=== PATIENT | male | born 1975 | race Caucasian/White ===

== ENCOUNTER 2017-10-24 09:14 | Inpatient (IN) ==
[2017-10-24] MEDS ORDERED: 0.9 % Sodium Chloride 1,000 ML IVC ONE ×3 (09:23→13:58)
[2017-10-24] MEDS ORDERED: Ondansetron 4 MG/2 ML VIAL IVP ONE (09:23)
[2017-10-24] MEDS ORDERED: *HR* HYDROmorphone (PF) 1 MG/ML SYRINGE IVP ONE ×2 (09:23→11:10)
[2017-10-24 09:54] LABS: Hematocrit 54.9 % (37.5-50.1); Hemoglobin 18.8 g/dL (12.9-16.9); Immature Granulocytes % 0.6 % (0-4); Mean Corpuscular HGB Conc 34.2 g/dL (31.6-35.5); Mean Corpuscular Volume 90.4 fL (83.0-100.0); Mean Platelet Volume 9.1 fL (9.4-12.4); Monocytes % 4.2 %; Platelet Count 429 K/mcL (140-400); Red Blood Count 6.07 M/mcL (4.19-5.50); Red Cell Distribution Width 11.9 % (11.5-14.5); Segmented Neutrophils % 85.6 %
[2017-10-24 09:55] LABS: Basophils # 0.1 K/mcL (0.0-0.2); Basophils % 0.3 %; Eosinophils # 0.1 K/mcL (0.0-0.6); Eosinophils % 0.3 %; Lymphocytes # 2.1 K/mcL (0.6-4.6); Neutrophils # 19.7 K/mcL (1.6-8.9); Nucleated Red Blood Cells 0.1 /100 WBC (0)
[2017-10-24 10:13] LABS: Ethanol < 10 mg/dL (0-10)
[2017-10-24 10:14] LABS: Alanine Aminotransferase 23 Units/L (7-52); Albumin 4.2 g/dL (3.5-5.7); Albumin/Globulin Ratio 1.8 (1.1-2.2); Alkaline Phosphatase 78 Units/L (34-104); Amylase 56 Units/L (29-103); Aspartate Amino Transferase 16 Units/L (13-39); BUN/Creatinine Ratio 16 (6-26); Bilirubin,Direct 0.1 mg/dL (0.0-0.2); Bilirubin,Indirect 0.7 mg/dL (0.0-1.2); Bilirubin,Total 0.8 mg/dL (0.3-1.0); Blood Urea Nitrogen 15 mg/dL (6-20); Calcium 9.5 mg/dL (8.6-10.3); Carbon Dioxide 26 mEq/L (23-29); Chloride 102 mEq/L (98-107); Globulin 2.4 g/dL (2.4-3.5); Glucose 178 mg/dL (70-105); Lipase 38 Units/L (11-82); Osmolality,Calculated 291 (280-300); Potassium 4.3 mEq/L (3.5-5.1); Sodium 138 mEq/L (136-145); Total Protein 6.6 g/dL (6.4-8.9); eGFR For African Americans > 60 (> 60); eGFR For Non-African Americans > 60 (> 60)
[2017-10-24 11:04] LABS: Bilirubin,Urine Small (Negative); Blood,Urine Negative (Negative); Clarity,Urine Cloudy (Clear); Color,Urine Dark Yellow (Yellow); Glucose,Urine (UA) Normal (Normal); Ketones,Urine 15 mg/dL (Negative); Leukocyte Esterase,Urine Negative (Negative); Nitrite,Urine Negative (Negative); Protein,Urine 30 mg/dL (Neg-Trace); Specific Gravity,Urine > 1.030 (1.010-1.025); Urobilinogen,Urine Normal (Normal)
[2017-10-24 11:06] LABS: Bacteria,Urine None Seen per hpf (None-Few); RBC,Urine 0-3 per hpf (0-3); Squamous Epithelial Cell,Urine Many per lpf (None-Few); WBC,Urine 0-3 per hpf (0-3)
--- NOTE | 2017-10-24 11:07 | Emergency Department Note ---
Disposition Clinical Impression: Diverticulitis of colon with perforation Qualifiers: Diverticulitis bleeding: without bleeding Qualified Code(s): K57.20 - Diverticulitis of large intestine with perforation and abscess without bleeding Disposition: Admitted As Inpatient Condition: Good Abdominal Pain HPI - General Chief Complaint: ED Abdominal Pain Stated Complaint: ABD Pain Time Seen by Provider: 10/24/17 09:18 Source: patient Mode of arrival: wheelchair Limitations: no limitations Nursing Notes Reviewed: Yes Vital Signs Reviewed: Yes - History of Present Illness HPI Narrative: Patient presents to the ED the chief complaint of abdominal pain. Pain started suprapubically 2-3 days ago. States he felt like he had stomach. Had a few episodes of diarrhea, then. He had a few episodes of vomiting but none today. States the pain has continued to get worse and is now constant and has moved all over his abdomen. He has had subjective fever and chills but none documented. No chest pain or shortness of breath. No previous abdominal surgeries. No testicular pain or hematuria or discharge. He has had some painful bowel movements as well as difficulty urinating Pain Scale: 10 - Related Data Home Medications Medication Instructions Recorded Confirmed No Known Home Drugs 10/24/17 10/24/17 Allergies Allergy/AdvReac Type Severity Reaction Status Date / Time No Known Allergies Allergy Verified 10/24/17 09:31 All systems ED: reviewed and negative except as stated. Constitutional: Reports: fever, chills Cardiovascular: Denies: chest pain Gastrointestinal: Reports: abdominal pain Genitourinary: Reports: as per HPI Abdominal Pain PMH - Past Medical History Medical history: Reports: no medical history Male Surgical History: Reports: no surgical history Psychiatric history: Reports: no psych history - Social History Smoking status: Current every day smoker Alcohol use: Reports: heavy Drug use: Reports: none Physical Exam - General Limitations: no limitations General appearance: alert, in distress (in pain ) - Head Head exam: atraumatic, normocephalic, normal inspection - Eye Eye exam: Present: normal appearance, PERRL, EOMI - ENT ENT exam: mucous membranes dry - Chest Chest inspection: Present: normal inspection, symmetric chest wall rise - Respiratory Respiratory exam: Present: normal lung sounds bilaterally - Cardiovascular Cardiovascular exam: Present: regular rate, normal rhythm, normal heart sounds - Abdominal Exam Abdominal exam: Present: soft, tenderness, distention, guarding. Absent: normal bowel sounds Abdominal tenderness: Present: suprapubic, diffuse, moderate, severe - Extremities Exam Extremities exam: Present: normal inspection, full ROM. Absent: tenderness, pedal edema - Back Exam Back exam: Present: normal inspection, full ROM. Absent: tenderness - Neurological Exam Neurological exam: Present: alert, oriented X3 - Psychiatric Psychiatric exam: Present: normal affect, normal mood - Skin Skin exam: Present: warm, dry, intact, normal color Course Course Narrative: patient presenting with abd pain x3 days, worse now. patient guarding, concern over surgical abd appy vs diverticulitis. will get CT, labs and dispo pending. - Reevaluation(s) Reevaluation #1: [place] royce called. patient has perforated diverticulitis with free air under the diaphragm and complex fluid around the spleen consistent with active perforation. No abscess formation. Contacted the on-call surgeon, Dr. Hernandez for a surgical consult. Discussed with the patient to remain nothing by mouth as he may need immediate operating room. wanted us to repeat CT with PO/IV and contact him. Ok to start Zosyn. Time: 11:08 Reevaluation #2: Dr. Hernandez down to eval patient after CT did not show active contrast extrav. patient remains stable but uncomfortable. Will admit to floor for further management. Vital Signs Temperature 97.9 F 10/24/17 09:20 Pulse Rate 72 10/24/17 09:20 Respiratory Rate 18 10/24/17 09:20 Blood Pressure 134/84 10/24/17 09:20 O2 Sat by Pulse Oximetry 100 10/24/17 09:20 Temperature 97.9 F 10/24/17 09:20 Pulse Rate 85 10/24/17 14:43 Respiratory Rate 17 10/24/17 14:43 Blood Pressure 141/86 10/24/17 14:43 O2 Sat by Pulse Oximetry 95 10/24/17 14:43 Oxygen Delivery Oxygen Delivery Room Air Abdominal Pain - Lab Data Result diagrams: 10/24/17 09:47 10/24/17 09:47 Lab Results 10/24/17 10/24/17 10/24/17 Range/Units 09:47 09:47 09:47 WBC 23.0 H (4.3-11.1) K/mcL RBC 6.07 H (4.19-5.50) M/mcL Hgb 18.8 H (12.9-16.9) g/dL Hct 54.9 H (37.5-50.1) % MCV 90.4 (83.0-100.0) fL MCH 31.0 (28.0-33.3) pg MCHC 34.2 (31.6-35.5) g/dL RDW 11.9 (11.5-14.5) % Plt Count 429 H (140-400) K/mcL MPV 9.1 L (9.4-12.4) fL Immature Gran % 0.6 (0-4) % Seg Neutrophils % 85.6 % Lymphocytes % 9.0 % Monocytes % 4.2 % Eosinophils % 0.3 % Basophils % 0.3 % Neutrophils # 19.7 H (1.6-8.9) K/mcL Lymphocytes # 2.1 (0.6-4.6) K/mcL Monocytes # 1.0 (0.0-1.3) K/mcL Eosinophils # 0.1 (0.0-0.6) K/mcL Basophils # 0.1 (0.0-0.2) K/mcL Nucleated RBCs/100 WBC 0.1 H (0) /100 WBC PT (9.4-12.1) Seconds INR APTT (26.0-36.0) Seconds Sodium 138 (136-145) mEq/L Potassium 4.3 (3.5-5.1) mEq/L Chloride 102 (98-107) mEq/L Carbon Dioxide 26 (23-29) mEq/L BUN 15 (6-20) mg/dL Creatinine 0.93 (0.70-1.30) mg/dL Est GFR ( Amer) > 60 (> 60) Est GFR (Non-Af Amer) > 60 (> 60) BUN/Creatinine Ratio 16 (6-26) Glucose 178 H (70-105) mg/dL Calculated Osmolality 291 (280-300) Lactic Acid 1.8 (0.5-2.2) mmol/L Calcium 9.5 (8.6-10.3) mg/dL Total Bilirubin 0.8 (0.3-1.0) mg/dL Direct Bilirubin 0.1 (0.0-0.2) mg/dL Indirect Bilirubin 0.7 (0.0-1.2) mg/dL AST 16 (13-39) Units/L ALT 23 (7-52) Units/L Alkaline Phosphatase 78 (34-104) Units/L Serum Total Protein 6.6 (6.4-8.9) g/dL Albumin 4.2 (3.5-5.7) g/dL Globulin 2.4 (2.4-3.5) g/dL Albumin/Globulin Ratio 1.8 (1.1-2.2) Amylase 56 (29-103) Units/L Lipase 38 (11-82) Units/L Urine Color (Yellow) Urine Clarity (Clear) Urine pH (5.0-8.0) pH Units Ur Specific [place] (1.010-1.025) Urine Protein (Neg-Trace) mg/dL Urine Glucose (UA) (Normal) mg/dL Urine Ketones (Negative) mg/dL Urine Blood (Negative) Urine Nitrite (Negative) Urine Bilirubin (Negative) Urine Urobilinogen (Normal) mg/dL Ur Leukocyte Esterase (Negative) Urine Microscopic RBC (0-3) per hpf Urine Microscopic WBC (0-3) per hpf Ur Squamous Epith Cells (None-Few) per lpf Urine Bacteria (None-Few) per hpf Hyaline Casts (None-Few) per lpf Granular Casts (None Seen) per lpf Urine Mucus (Few) Ur Culture Indicated? (NO) Ethyl Alcohol < 10 (0-10) mg/dL 10/24/17 10/24/17 Range/Units 09:47 10:57 WBC (4.3-11.1) K/mcL RBC (4.19-5.50) M/mcL Hgb (12.9-16.9) g/dL Hct (37.5-50.1) % MCV (83.0-100.0) fL MCH (28.0-33.3) pg MCHC (31.6-35.5) g/dL RDW (11.5-14.5) % Plt Count (140-400) K/mcL MPV (9.4-12.4) fL Immature Gran % (0-4) % Seg Neutrophils % % Lymphocytes % % Monocytes % % Eosinophils % % Basophils % % Neutrophils # (1.6-8.9) K/mcL Lymphocytes # (0.6-4.6) K/mcL Monocytes # (0.0-1.3) K/mcL Eosinophils # (0.0-0.6) K/mcL Basophils # (0.0-0.2) K/mcL Nucleated RBCs/100 WBC (0) /100 WBC PT 11.4 (9.4-12.1) Seconds INR 1.1 APTT 26.0 (26.0-36.0) Seconds Sodium (136-145) mEq/L Potassium (3.5-5.1) mEq/L Chloride (98-107) mEq/L Carbon Dioxide (23-29) mEq/L BUN (6-20) mg/dL Creatinine (0.70-1.30) mg/dL Est GFR ( Amer) (> 60) Est GFR (Non-Af Amer) (> 60) BUN/Creatinine Ratio (6-26) Glucose (70-105) mg/dL Calculated Osmolality (280-300) Lactic Acid (0.5-2.2) mmol/L Calcium (8.6-10.3) mg/dL Total Bilirubin (0.3-1.0) mg/dL Direct Bilirubin (0.0-0.2) mg/dL Indirect Bilirubin (0.0-1.2) mg/dL AST (13-39) Units/L ALT (7-52) Units/L Alkaline Phosphatase (34-104) Units/L Serum Total Protein (6.4-8.9) g/dL Albumin (3.5-5.7) g/dL Globulin (2.4-3.5) g/dL Albumin/Globulin Ratio (1.1-2.2) Amylase (29-103) Units/L Lipase (11-82) Units/L Urine Color Dark Yellow (Yellow) Urine Clarity Cloudy A (Clear) Urine pH 6.0 (5.0-8.0) pH Units Ur Specific [place] > 1.030 H (1.010-1.025) Urine Protein 30 H (Neg-Trace) mg/dL Urine Glucose (UA) Normal (Normal) mg/dL Urine Ketones 15 H (Negative) mg/dL Urine Blood Negative (Negative) Urine Nitrite Negative (Negative) Urine Bilirubin Small H (Negative) Urine Urobilinogen Normal (Normal) mg/dL Ur Leukocyte Esterase Negative (Negative) Urine Microscopic RBC 0-3 (0-3) per hpf Urine Microscopic WBC 0-3 (0-3) per hpf Ur Squamous Epith Cells Many H (None-Few) per lpf Urine Bacteria None Seen (None-Few) per hpf Hyaline Casts Few (None-Few) per lpf Granular Casts Few H (None Seen) per lpf Urine Mucus Few (Few) Ur Culture Indicated? NO (NO) Ethyl Alcohol (0-10) mg/dL Attestation Statement - Attestation Attestation: I examined this patient and my medical decision-making was reviewed with the Resident Physician, Dr. Butt. I agree with the documented findings, disposition and treatment plan as described except to the extent set forth below. Patient is an otherwise healthy 42-year-old white male who presents to emergency department with a 2 to three-day history of what he describes as a stomach virus involving nausea vomiting and diarrhea. She denies any fevers or chills but states that over the last 24 hours he has had gradually worsening lower abdominal pain associated with these symptoms. No prior history of any bowel disease or bowel surgeries. No blood in his stool. Patient's been feeling chilled but no reported fevers. I agreed patient's physical exam findings as documented, vital signs are stable on arrival. Patient's clinical exam concerning for peritoneal signs patient was made nothing by mouth, pain and nausea medicines were administered labs were drawn and sent and he was sent for CT scan. CBC with leukocytosis and left shift on laboratory results. CT shows perforated sigmoid diverticulitis with pneumoperitoneum. No abscess was visualized. We instituted IV antibiotics and contacted Dr. Hernandez who is on for surgery. He did accept the patient but requested that we repeat the scan with both oral and IV contrast due to some recent cases that he has had and which the CT shows free air and then when he gets into the surgeries there is no bowel perforation. Patient remains hemodynamically stable and resting comfortably. We repeated the scan with the request contrast and still shows same findings. Dr. Hernandez came down to see the patient and the emergency department and at this time wall admit him to his service, patient was taken to the floor.
[2017-10-24 11:10] LABS: INR 1.1; Prothrombin Time 11.4 Seconds (9.4-12.1)
[2017-10-24] MEDS ORDERED: Piperacillin/Tazobactam 3.375 GM/200 ML BAG IVPB ONE (11:17)
[2017-10-24] MEDS ORDERED: Piperacillin/Tazobactam 3.375 GM in Water for inj. (sterile) 20 ML 20 ML IVP ONE (11:19)
[2017-10-24 11:22] LABS: Granular Casts,Urine Few per lpf (None Seen); Hyaline Casts,Urine Few per lpf (None-Few); Mucus,Urine Few (Few)
[2017-10-24] MEDS: D5% in 0.9% NACL 1,000 ML IVC SCH ×2 (12:07→21:18)
--- NOTE | 2017-10-24 13:52 | General Surg History&Physical ---
Date of Encounter: 10/24/17 Time of Encounter: 13:50 Assessment and Plan (1) Diverticulitis of colon with perforation Current Visit: Yes Status: Acute 42M with diverticulitis with associated free air concerning for perforation. hemodynamically stable, tender but not diffusely peritoneal; most of tenderness is in LLQ and suprapubic region; He has had a perforation, but wanting to know if he has sealed the perforation. Since he is not septic and is HDS, will repeat the CT scan with contrast to see if there is extravasation. if there is then I will take the patient to surgery for a britt's procedure. I discussed the risks and benefits and details of the procedure with the patient , including the need for a colostomy; if there is not free extravasation, will admit the patient a step down unit and monitor clinical status, if he worsens over the course of 24hrs (or sooner) will go to the OR, if he does not improve during his hospital stay, then will go to the OR. if non operative management does take care of his problem, then will proceed with that and plan for surgery in the future if needed; this is his first episode of diverticulitis; The assessment and plan as outlined above was discussed with the patient and/or family members who expressed understanding and agreement. All questions were answered. Qualifiers: Diverticulitis bleeding: without bleeding Qualified Code(s): K57.20 - Diverticulitis of large intestine with perforation and abscess without bleeding History of Present Illness Chief complaint: abdominal pain HPI: Mr. Garzon is a 42 year old male otherwise healthy (but does not see the MD regularly) who presents with 4 day history of worsening abdominal pain. The he originally thought that his pain was a 'stomach bug' that causes a low level of discomfort with associated nausea and vomiting. No reports of fevers, chills, chest pain nor shortness of breath. He started feeling better on REBECA and ate and drank without issue. At 0600 this morning he states that his pain was at its worst ever. So much so that he was not able to walk. That is what prompted him to come to the emergency department for evaluation. Past Med Surg Social Fam HX - Past Medical History Medical history: no medical history Psychiatric history: no psych history - Past Surgical History Surgical History: no surgical history - Social History Smoking Status: Current every day smoker Alcohol use: heavy Drug use: none - Additional Family History Additional family history: non contributory Medications and Allergies No Known Home Drugs 10/24/17 [History] 3 Allergy/AdvReac Type Severity Reaction Status Date / Time No Known Allergies Allergy Verified 10/24/17 09:31 Review of Systems All systems PM: A 10-system review of systems was performed and is negative for pertinent findings except as documented above in the HPI. General Surgery Exam Initial Vital Signs Temp Pulse Resp BP Pulse Ox 97.9 F 72 18 134/84 100 10/24/17 09:20 10/24/17 09:20 10/24/17 09:20 10/24/17 09:20 10/24/17 09:20 - General physical appearance well developed, well nourished, no distress, other (in obvious pain/discomfort) - Eyes normal ocular movement - ENT normocephalic - Neck no lymphadectomy - Respiratory normal expansion, normal respiratory effort - Cardiovascular Cardiovascular exam: Present: RRR - Abdomen Abdomen general surgery: Present: soft, tender Abdominal Tenderness: Present: LLQ (most pain in LLQ and suprapubic region, but he does have tenderness in all quadrants), diffusely - Integumentary Integumentary general surgery: Present: warm and dry - Neurologic Present: CN 2-12 grossly intact - Musculoskeletal Present: other (FROM in UE/LE bilaterally) - Psychiatric Psychiatric general surgery: Present: A&Ox3 Results - Labs 10/24/17 09:47 10/24/17 09:47 Abnormal lab results WBC 23.0 K/mcL (4.3-11.1) H 10/24/17 09:47 RBC 6.07 M/mcL (4.19-5.50) H 10/24/17 09:47 Hgb 18.8 g/dL (12.9-16.9) H 10/24/17 09:47 Hct 54.9 % (37.5-50.1) H 10/24/17 09:47 Plt Count 429 K/mcL (140-400) H 10/24/17 09:47 MPV 9.1 fL (9.4-12.4) L 10/24/17 09:47 Neutrophils # 19.7 K/mcL (1.6-8.9) H 10/24/17 09:47 Nucleated RBCs/100 WBC 0.1 /100 WBC (0) H 10/24/17 09:47 Glucose 178 mg/dL (70-105) H 10/24/17 09:47 Urine Clarity Cloudy (Clear) A 10/24/17 10:57 Ur Specific [place] > 1.030 (1.010-1.025) H 10/24/17 10:57 Urine Protein 30 mg/dL (Neg-Trace) H 10/24/17 10:57 Urine Ketones 15 mg/dL (Negative) H 10/24/17 10:57 Urine Bilirubin Small (Negative) H 10/24/17 10:57 Ur Squamous Epith Cells Many per lpf (None-Few) H 10/24/17 10:57 Granular Casts Few per lpf (None Seen) H 10/24/17 10:57 Diabetes panel 10/24/17 Range/Units 09:47 Sodium 138 (136-145) mEq/L Potassium 4.3 (3.5-5.1) mEq/L Chloride 102 (98-107) mEq/L Carbon Dioxide 26 (23-29) mEq/L BUN 15 (6-20) mg/dL Creatinine 0.93 (0.70-1.30) mg/dL Glucose 178 H (70-105) mg/dL Calcium 9.5 (8.6-10.3) mg/dL AST 16 (13-39) Units/L ALT 23 (7-52) Units/L Alkaline Phosphatase 78 (34-104) Units/L Albumin 4.2 (3.5-5.7) g/dL Calcium panel 10/24/17 Range/Units 09:47 Calcium 9.5 (8.6-10.3) mg/dL Albumin 4.2 (3.5-5.7) g/dL Pituitary panel 10/24/17 Range/Units 09:47 Sodium 138 (136-145) mEq/L Potassium 4.3 (3.5-5.1) mEq/L Chloride 102 (98-107) mEq/L Carbon Dioxide 26 (23-29) mEq/L BUN 15 (6-20) mg/dL Creatinine 0.93 (0.70-1.30) mg/dL Glucose 178 H (70-105) mg/dL Calcium 9.5 (8.6-10.3) mg/dL Adrenal panel 10/24/17 Range/Units 09:47 Sodium 138 (136-145) mEq/L Potassium 4.3 (3.5-5.1) mEq/L Chloride 102 (98-107) mEq/L Carbon Dioxide 26 (23-29) mEq/L BUN 15 (6-20) mg/dL Creatinine 0.93 (0.70-1.30) mg/dL Glucose 178 H (70-105) mg/dL Calcium 9.5 (8.6-10.3) mg/dL Total Bilirubin 0.8 (0.3-1.0) mg/dL AST 16 (13-39) Units/L ALT 23 (7-52) Units/L Alkaline Phosphatase 78 (34-104) Units/L Albumin 4.2 (3.5-5.7) g/dL All other labs normal. - Imaging CT scan - abdomen: report reviewed, image reviewed CT scan - pelvis: report reviewed, image reviewed
[2017-10-24] MEDS ORDERED: Ondansetron 4 MG/2 ML VIAL IVP PRN (13:58)
[2017-10-24] MEDS: *HR* Morphine 2 MG/ML SYRINGE IVP PRN ×2 (16:06→21:18)
[2017-10-24] MEDS: Piperacillin/Tazobactam 3.375 GM/200 ML BAG IVPB SCH (18:09)
[2017-10-25] MEDS: *HR* Morphine 2 MG/ML SYRINGE IVP PRN ×6 (01:25→22:24)
[2017-10-25] MEDS: Piperacillin/Tazobactam 3.375 GM/200 ML BAG IVPB SCH ×3 (01:26→17:58)
[2017-10-25] MEDS: D5% in 0.9% NACL 1,000 ML IVC SCH ×4 (05:42→10:13)
[2017-10-25] MEDS: *HR* Enoxaparin 40 MG/0.4 ML SYRINGE SQ SCH (05:43)
[2017-10-25 07:15] LABS: BUN/Creatinine Ratio 14 (6-26); Blood Urea Nitrogen 11 mg/dL (6-20); Calcium 7.9 mg/dL (8.6-10.3); Carbon Dioxide 21 mEq/L (23-29); Chloride 110 mEq/L (98-107); Glucose 167 mg/dL (70-105); Magnesium 1.9 mg/dL (1.6-2.6); Osmolality,Calculated 285 (280-300); Phosphorous 2.3 mg/dL (2.7-4.5); Potassium 3.6 mEq/L (3.5-5.1); Sodium 136 mEq/L (136-145); eGFR For African Americans > 60 (> 60); eGFR For Non-African Americans > 60 (> 60)
[2017-10-25 07:44] LABS: Hematocrit 50.3 % (37.5-50.1); Mean Corpuscular HGB Conc 34.2 g/dL (31.6-35.5); Mean Corpuscular Hemoglobin 30.9 pg (28.0-33.3); Mean Corpuscular Volume 90.3 fL (83.0-100.0); Mean Platelet Volume 9.7 fL (9.4-12.4); Platelet Count 288 K/mcL (140-400); Red Blood Count 5.57 M/mcL (4.19-5.50)
[2017-10-25 07:52] LABS: Hemoglobin 17.2 g/dL (12.9-16.9)
--- NOTE | 2017-10-25 08:43 | General Surgery Progress Note ---
<Garrett Ramey - Last Filed: 10/25/17 11:46> Date of Encounter: 10/25/17 Time of Encounter: 08:41 - Assessment and Plan (1) Diverticulitis of colon with perforation Current Visit: Yes Status: Acute Concern for free air associated with perforated diverticulitis. Patient's first episode of Diverticulitis. Currently hemodynamically stable and improving. Pain is controlled with Morphine. continue conservative mgmt for now. If pt declines Dr. Hernandez will perform britt's procedure. Risks and benefits previously discussed with patient. WBC 23.0 -> 22.1 (today). - repeat AM labs; closely monitor WBC and vitals - serial abd exams - ct pain mgmt w/ morphine - ct abx (Zosyn day 2) - ct IVF Qualifiers: Diverticulitis bleeding: without bleeding Qualified Code(s): K57.20 - Diverticulitis of large intestine with perforation and abscess without bleeding Subjective Patient reports: no new complaints, feels better, pain is less, flatus, no bowel movement, afebrile Narrative: 42 yo M day 2 of hospitalization. Reports that abd pain has decreased from 10/ 10 severity to 4/10 severity. He reports feeling much better today. He has no pain at rest. Denies fever, nausea, vomiting. Objective Vital Signs - Last 8 Hours Temp Pulse Resp BP Pulse Ox 10/25/17 08:15 98.9 F 88 18 151/92 93 10/25/17 03:56 98.4 F 101 16 136/90 94 Intake and Output 10/24/17 10/25/17 10/25/17 23:59 07:59 15:59 Intake Total 2150 / 2150 950 / 950 0 / 0 Output Total 300 / 300 0 / 0 Balance 2150 / 2150 650 / 650 0 / 0 Intake: IV Fluids 2100 / 2100 950 / 950 0.9 % Sodium Chloride 1,000 ML 1000 / 1000 @ 3750 mls/hr IVC .Q16M ONE Rx# :[id number] D5% And 0.9% Nacl 1000 Ml 1,000 900 / 900 950 / 950 ML @ 125 mls/hr IVC .Q8H REJI Rx#:[id number] Zosyn Premix 3.375 GM/200 ML 3. 200 / 200 375 gm In 200 ml @ 50 mls/hr IVPB Q8H REJI Rx#:[id number] Oral 50 / 50 0 / 0 Output: Urine 300 / 300 0 / 0 Other: Meal NPO Percent of Meal Consumed 0% # Voids 1 Blood Glucose* 154 - General physical appearance well developed, well nourished, no distress, moderate pain - Eyes normal ocular movement - ENT no hearing loss, no congestion - Neck Neck exam: no masses, no venous distension - Respiratory normal expansion, normal respiratory effort, clear to percussion, clear to auscultation - Cardiovascular Cardiovascular exam: Present: RRR - Abdomen Abdomen: Present: bowel sounds present, distended, tender (on deep palpation to LLQ and midline), guarding. Absent: masses, rebound Abdominal Tenderness: LLQ, suprapubic - Integumentary no rash, no growths, no abnormal pigmentation - Neurologic normal coordination, normal sensation - Psychiatric oriented to time, oriented to person, oriented to place, speech is normal, memory intact - Labs 10/25/17 06:14 10/25/17 06:14 Diabetes panel 10/25/17 Range/Units 06:14 Sodium 136 (136-145) mEq/L Potassium 3.6 (3.5-5.1) mEq/L Chloride 110 H (98-107) mEq/L Carbon Dioxide 21 L (23-29) mEq/L BUN 11 (6-20) mg/dL Creatinine 0.79 (0.70-1.30) mg/dL Glucose 167 H (70-105) mg/dL Calcium 7.9 L (8.6-10.3) mg/dL Calcium panel 10/25/17 Range/Units 06:14 Calcium 7.9 L (8.6-10.3) mg/dL Phosphorus 2.3 L (2.7-4.5) mg/dL Pituitary panel 10/25/17 Range/Units 06:14 Sodium 136 (136-145) mEq/L Potassium 3.6 (3.5-5.1) mEq/L Chloride 110 H (98-107) mEq/L Carbon Dioxide 21 L (23-29) mEq/L BUN 11 (6-20) mg/dL Creatinine 0.79 (0.70-1.30) mg/dL Glucose 167 H (70-105) mg/dL Calcium 7.9 L (8.6-10.3) mg/dL Adrenal panel 10/25/17 Range/Units 06:14 Sodium 136 (136-145) mEq/L Potassium 3.6 (3.5-5.1) mEq/L Chloride 110 H (98-107) mEq/L Carbon Dioxide 21 L (23-29) mEq/L BUN 11 (6-20) mg/dL Creatinine 0.79 (0.70-1.30) mg/dL Glucose 167 H (70-105) mg/dL Calcium 7.9 L (8.6-10.3) mg/dL Consult Discharge Plan - Plan Referrals: NONE,PCP [Primary Care Provider] - Jenise Dalal [Family Provider] - <Angel Hernandez - Last Filed: 10/25/17 12:52> Date of Encounter: 10/25/17 - Assessment and Plan (1) Diverticulitis of colon with perforation Current Visit: Yes Status: Acute Qualifiers: Diverticulitis bleeding: without bleeding Qualified Code(s): K57.20 - Diverticulitis of large intestine with perforation and abscess without bleeding Objective Vital Signs - Last 8 Hours Temp Pulse Resp BP Pulse Ox 10/25/17 10:36 98.3 F 93 18 149/87 92 10/25/17 08:15 98.9 F 88 18 151/92 93 Intake and Output 10/24/17 10/25/17 10/25/17 23:59 07:59 15:59 Intake Total 2150 / 2150 950 / 950 200 / 200 Output Total 300 / 300 300 / 300 Balance 2150 / 2150 650 / 650 -100 / -100 Intake: IV Fluids 2100 / 2100 950 / 950 200 / 200 0.9 % Sodium Chloride 1,000 ML 1000 / 1000 @ 3750 mls/hr IVC .Q16M ONE Rx# :[id number] D5% And 0.9% Nacl 1000 Ml 1,000 900 / 900 950 / 950 ML @ 125 mls/hr IVC .Q8H REJI Rx#:[id number] Zosyn Premix 3.375 GM/200 ML 3. 200 / 200 200 / 200 375 gm In 200 ml @ 50 mls/hr IVPB Q8H REJI Rx#:[id number] Oral 50 / 50 0 / 0 Output: Urine 300 / 300 300 / 300 Other: Meal NPO NPO Percent of Meal Consumed 0% 0% # Voids 1 Blood Glucose* 154 147 - Labs 10/25/17 06:14 10/25/17 06:14 Diabetes panel 10/25/17 Range/Units 06:14 Sodium 136 (136-145) mEq/L Potassium 3.6 (3.5-5.1) mEq/L Chloride 110 H (98-107) mEq/L Carbon Dioxide 21 L (23-29) mEq/L BUN 11 (6-20) mg/dL Creatinine 0.79 (0.70-1.30) mg/dL Glucose 167 H (70-105) mg/dL Calcium 7.9 L (8.6-10.3) mg/dL Calcium panel 10/25/17 Range/Units 06:14 Calcium 7.9 L (8.6-10.3) mg/dL Phosphorus 2.3 L (2.7-4.5) mg/dL Pituitary panel 10/25/17 Range/Units 06:14 Sodium 136 (136-145) mEq/L Potassium 3.6 (3.5-5.1) mEq/L Chloride 110 H (98-107) mEq/L Carbon Dioxide 21 L (23-29) mEq/L BUN 11 (6-20) mg/dL Creatinine 0.79 (0.70-1.30) mg/dL Glucose 167 H (70-105) mg/dL Calcium 7.9 L (8.6-10.3) mg/dL Adrenal panel 10/25/17 Range/Units 06:14 Sodium 136 (136-145) mEq/L Potassium 3.6 (3.5-5.1) mEq/L Chloride 110 H (98-107) mEq/L Carbon Dioxide 21 L (23-29) mEq/L BUN 11 (6-20) mg/dL Creatinine 0.79 (0.70-1.30) mg/dL Glucose 167 H (70-105) mg/dL Calcium 7.9 L (8.6-10.3) mg/dL - Attending Attestation patient seen and examined. i have reviewed all labs and notes including this one. i agree with above assessment and plan and wish to add the following... 42M otherwise healthy with pneumoperitoneum 2/2 diverticulitis; discussed options with patient and elected for non operative treatment; pain improved; non peritoneal on exam, but slurry tank tender; WBC decreased, but patient now has bandemia; will cont to monitor patient; cont with abx, fluid resuscitation; keep NPO and control pain;
[2017-10-25 08:48] LABS: Lymphocytes # 1.3 K/mcL (0.6-4.6); Monocytes # 1.3 K/mcL (0.0-1.3); Neutrophils # 19.5 K/mcL (1.6-8.9); Platelet Estimate Normal (Normal)
[2017-10-25] MEDS: D5% in 0.45% NACL w KCl 20 MEQ/1,000 ML MLS IVC SCH ×3 (10:12→23:10)
[2017-10-25] MEDS ORDERED: Potassium Phosphate 44 MEQ in 0.9 % Sodium Chloride 250 ML IVPB ONE (12:48)
[2017-10-25] MEDS ORDERED: 0.9 % Sodium Chloride 1,000 ML IVC ONE (12:49)
[2017-10-26] MEDS: Piperacillin/Tazobactam 3.375 GM/200 ML BAG IVPB SCH ×3 (01:12→18:30)
[2017-10-26] MEDS: *HR* Morphine 2 MG/ML SYRINGE IVP PRN ×2 (02:53→15:42)
[2017-10-26] MEDS: *HR* Enoxaparin 40 MG/0.4 ML SYRINGE SQ SCH (05:32)
[2017-10-26] MEDS: D5% in 0.45% NACL w KCl 20 MEQ/1,000 ML MLS IVC SCH ×2 (07:21→19:43)
[2017-10-26 07:27] LABS: Red Cell Distribution Width 12.2 % (11.5-14.5)
[2017-10-26 07:29] LABS: Hematocrit 46.4 % (37.5-50.1); Mean Corpuscular HGB Conc 34.5 g/dL (31.6-35.5); Mean Corpuscular Hemoglobin 31.1 pg (28.0-33.3); Mean Corpuscular Volume 90.3 fL (83.0-100.0); Mean Platelet Volume 9.4 fL (9.4-12.4); Platelet Count 295 K/mcL (140-400); Red Blood Count 5.14 M/mcL (4.19-5.50)
[2017-10-26 07:41] LABS: BUN/Creatinine Ratio 17 (6-26); Blood Urea Nitrogen 12 mg/dL (6-20); Calcium 8.5 mg/dL (8.6-10.3); Carbon Dioxide 23 mEq/L (23-29); Chloride 106 mEq/L (98-107); Glucose 149 mg/dL (70-105); Osmolality,Calculated 281 (280-300); Potassium 3.7 mEq/L (3.5-5.1); Sodium 134 mEq/L (136-145); eGFR For African Americans > 60 (> 60); eGFR For Non-African Americans > 60 (> 60)
[2017-10-26] MEDS ORDERED: 0.9 % Sodium Chloride 1,000 ML IVC ONE (09:01)
[2017-10-26 09:15] LABS: Neutrophils # 29.9 K/mcL (1.6-8.9); Platelet Estimate Normal (Normal); Toxic Granulation Present (Not Present)
--- NOTE | 2017-10-26 09:25 | General Surgery Progress Note ---
<Garrett Ramey - Last Filed: 10/26/17 09:35> Date of Encounter: 10/26/17 Time of Encounter: 09:23 - Assessment and Plan (1) Diverticulitis of colon with perforation Current Visit: Yes Status: Acute Concern for free air associated with perforated diverticulitis. Patient's first episode of Diverticulitis. Currently hemodynamically stable and continues to improve. Pain is controlled with Morphine. continue conservative mgmt for now. Risks and benefits previously discussed with patient. WBC 23.0 - > 22.1 -> 33.2 (today). - repeat AM labs; closely monitor WBC and vitals - serial abd exams - ct pain mgmt w/ morphine - ct abx (Zosyn day 3) - ct IVF - CXR ordered for reevaluation of free air in the abd Qualifiers: Diverticulitis bleeding: without bleeding Qualified Code(s): K57.20 - Diverticulitis of large intestine with perforation and abscess without bleeding Subjective Patient reports: feels better, pain is less, flatus, bowel movement (reports having a small pellet of stool yesterday) Objective Vital Signs - Last 8 Hours Temp Pulse Resp BP Pulse Ox 10/26/17 06:52 98.5 F 103 18 142/89 10/26/17 06:12 97.6 F 101 14 149/103 91 Intake and Output 10/25/17 10/26/17 10/26/17 23:59 07:59 15:59 Intake Total 1460 / 1460 1200 / 1200 Output Total 0 / 0 150 / 150 Balance 1460 / 1460 1050 / 1050 Intake: IV Fluids 1460 / 1460 1200 / 1200 KCl 20mEq IN D5%-0.45 NACL 20 1000 / 1000 1000 / 1000 meq In 1,000 ml @ 125 mls/hr IVC .Q8H [facility] Rx#:[id number] Zosyn Premix 3.375 GM/200 ML 3. 200 / 200 200 / 200 375 gm In 200 ml @ 50 mls/hr IVPB Q8H [facility] Rx#:[id number] Potassium Phosphate 44 MEQ In 0 260 / 260 .9 % Sodium Chloride 250 ML @ 40 mls/hr IVPB ONCE ONE Rx#: [id number] Oral 0 / 0 0 / 0 Output: Urine 0 / 0 150 / 150 Other: # Voids 2 Blood Glucose* 122 144 - General physical appearance well nourished, moderate pain - ENT no hearing loss, no congestion - Neck Neck exam: no masses, no venous distension - Respiratory normal expansion, normal respiratory effort, clear to percussion, clear to auscultation - Cardiovascular Cardiovascular exam: Present: RRR - Abdomen Abdomen: Present: bowel sounds present, non tender, distended (is reduced compared to yesterday). Absent: guarding, rebound - Integumentary no rash (3), no growths, no abnormal pigmentation - Neurologic normal sensation - Psychiatric oriented to time, oriented to person, oriented to place, speech is normal, memory intact - Labs 10/26/17 06:54 10/26/17 06:54 Diabetes panel 10/26/17 Range/Units 06:54 Sodium 134 L (136-145) mEq/L Potassium 3.7 (3.5-5.1) mEq/L Chloride 106 (98-107) mEq/L Carbon Dioxide 23 (23-29) mEq/L BUN 12 (6-20) mg/dL Creatinine 0.71 (0.70-1.30) mg/dL Glucose 149 H (70-105) mg/dL Calcium 8.5 L (8.6-10.3) mg/dL Calcium panel 10/26/17 Range/Units 06:54 Calcium 8.5 L (8.6-10.3) mg/dL Pituitary panel 10/26/17 Range/Units 06:54 Sodium 134 L (136-145) mEq/L Potassium 3.7 (3.5-5.1) mEq/L Chloride 106 (98-107) mEq/L Carbon Dioxide 23 (23-29) mEq/L BUN 12 (6-20) mg/dL Creatinine 0.71 (0.70-1.30) mg/dL Glucose 149 H (70-105) mg/dL Calcium 8.5 L (8.6-10.3) mg/dL Adrenal panel 10/26/17 Range/Units 06:54 Sodium 134 L (136-145) mEq/L Potassium 3.7 (3.5-5.1) mEq/L Chloride 106 (98-107) mEq/L Carbon Dioxide 23 (23-29) mEq/L BUN 12 (6-20) mg/dL Creatinine 0.71 (0.70-1.30) mg/dL Glucose 149 H (70-105) mg/dL Calcium 8.5 L (8.6-10.3) mg/dL Consult Discharge Plan - Plan Referrals: NONE,PCP [Primary Care Provider] - Jenise Dalal [Family Provider] - <TillmanMaddiTayler Darci - Last Filed: 10/26/17 11:24> Date of Encounter: 10/26/17 - Assessment and Plan (1) Diverticulitis of colon with perforation Current Visit: Yes Status: Acute Qualifiers: Diverticulitis bleeding: without bleeding Qualified Code(s): K57.20 - Diverticulitis of large intestine with perforation and abscess without bleeding (2) Bronchitis Current Visit: Yes Status: Acute IV fluids Added duonebs scheduled every 6 hours IS every 1 hour while awake Coughing and deep breathing Smoking cessation education Objective Vital Signs - Last 8 Hours Temp Pulse Resp BP Pulse Ox 10/26/17 06:52 98.5 F 103 18 142/89 10/26/17 06:12 97.6 F 101 14 149/103 91 Intake and Output 10/25/17 10/26/17 10/26/17 23:59 07:59 15:59 Intake Total 1460 / 1460 1200 / 1200 Output Total 0 / 0 150 / 150 Balance 1460 / 1460 1050 / 1050 Intake: IV Fluids 1460 / 1460 1200 / 1200 KCl 20mEq IN D5%-0.45 NACL 20 1000 / 1000 1000 / 1000 meq In 1,000 ml @ 125 mls/hr IVC .Q8H [facility] Rx#:[id number] Zosyn Premix 3.375 GM/200 ML 3. 200 / 200 200 / 200 375 gm In 200 ml @ 50 mls/hr IVPB Q8H [facility] Rx#:[id number] Potassium Phosphate 44 MEQ In 0 260 / 260 .9 % Sodium Chloride 250 ML @ 40 mls/hr IVPB ONCE ONE Rx#: [id number] Oral 0 / 0 0 / 0 Output: Urine 0 / 0 150 / 150 Other: Meal npo # Voids 2 Blood Glucose* 122 144 - Labs 10/26/17 06:54 10/26/17 06:54 Diabetes panel 10/26/17 Range/Units 06:54 Sodium 134 L (136-145) mEq/L Potassium 3.7 (3.5-5.1) mEq/L Chloride 106 (98-107) mEq/L Carbon Dioxide 23 (23-29) mEq/L BUN 12 (6-20) mg/dL Creatinine 0.71 (0.70-1.30) mg/dL Glucose 149 H (70-105) mg/dL Calcium 8.5 L (8.6-10.3) mg/dL Calcium panel 10/26/17 Range/Units 06:54 Calcium 8.5 L (8.6-10.3) mg/dL Pituitary panel 10/26/17 Range/Units 06:54 Sodium 134 L (136-145) mEq/L Potassium 3.7 (3.5-5.1) mEq/L Chloride 106 (98-107) mEq/L Carbon Dioxide 23 (23-29) mEq/L BUN 12 (6-20) mg/dL Creatinine 0.71 (0.70-1.30) mg/dL Glucose 149 H (70-105) mg/dL Calcium 8.5 L (8.6-10.3) mg/dL Adrenal panel 10/26/17 Range/Units 06:54 Sodium 134 L (136-145) mEq/L Potassium 3.7 (3.5-5.1) mEq/L Chloride 106 (98-107) mEq/L Carbon Dioxide 23 (23-29) mEq/L BUN 12 (6-20) mg/dL Creatinine 0.71 (0.70-1.30) mg/dL Glucose 149 H (70-105) mg/dL Calcium 8.5 L (8.6-10.3) mg/dL <Angel Hernandez - Last Filed: 10/26/17 13:41> Date of Encounter: 10/26/17 - Assessment and Plan (1) Diverticulitis of colon with perforation Current Visit: Yes Status: Acute 42M with diverticulitis with free air, no evidence of active extravasation on CT scan; currently on antibiotics with worsening leukocytosis; clinically patient is afebrile, mildy tachycardic, tender on exam but improved compared to admission; patient does report bowel movement; lactate is wnl; at present, although his WBC is worse, he appears to be doing better overall; CXR does not show significant free air; actually less than I would expect compared to original CT scan; will continue with non operative management at present; - NPO; will plan for TPN tomorrow as I do not anticipate his pain will be resolved tomorrow nor do I anticipate he will be ready to initiate a diet tomorrow - IVF; bolus this AM; will plan for repeat bolus in afternoon - cont abx regimen (cont to monitor for worsening WBC, fevers, tachycardia, hypotension) - if WBC worse or patient spikes a fever, will plan for repeat CT scan at that point - cont with current pain regimen - patient still aware of the threshold for ending non operative management and going to the OR Qualifiers: Diverticulitis bleeding: without bleeding Qualified Code(s): K57.20 - Diverticulitis of large intestine with perforation and abscess without bleeding Subjective Patient reports: no new complaints, feels better, still having pain, pain is less, bowel movement, afebrile Objective Vital Signs - Last 8 Hours Temp Pulse Resp BP Pulse Ox 10/26/17 12:03 98.6 F 112 16 133/83 90 10/26/17 06:52 98.5 F 103 18 142/89 10/26/17 06:12 97.6 F 101 14 149/103 91 Intake and Output 10/25/17 10/26/17 10/26/17 23:59 07:59 15:59 Intake Total 1460 / 1460 1200 / 1200 1000 / 1000 Output Total 0 / 0 150 / 150 Balance 1460 / 1460 1050 / 1050 1000 / 1000 Intake: IV Fluids 1460 / 1460 1200 / 1200 1000 / 1000 0.9 % Sodium Chloride 1,000 ML 1000 / 1000 @ 3750 mls/hr IVC .Q16M ONE Rx# :[id number] KCl 20mEq IN D5%-0.45 NACL 20 1000 / 1000 1000 / 1000 meq In 1,000 ml @ 125 mls/hr IVC .Q8H [facility] Rx#:[id number] Zosyn Premix 3.375 GM/200 ML 3. 200 / 200 200 / 200 375 gm In 200 ml @ 50 mls/hr IVPB Q8H [facility] Rx#:[id number] Potassium Phosphate 44 MEQ In 0 260 / 260 .9 % Sodium Chloride 250 ML @ 40 mls/hr IVPB ONCE ONE Rx#: [id number] Oral 0 / 0 0 / 0 Output: Urine 0 / 0 150 / 150 Other: Meal npo # Voids 2 Blood Glucose* 122 144 - General physical appearance well developed, well nourished, no distress - ENT normocephalic - Neck Neck exam: no lymphadectomy - Respiratory normal expansion, normal respiratory effort - Cardiovascular Cardiovascular exam: Present: RRR - Abdomen Abdomen: Present: soft, tender Abdominal Tenderness: epigastic, LLQ Hernia: none - Integumentary no rash - Neurologic CN 2-12 grossly intact - Psychiatric oriented to time, oriented to person, oriented to place - Labs 10/26/17 06:54 10/26/17 06:54 Diabetes panel 10/26/17 Range/Units 06:54 Sodium 134 L (136-145) mEq/L Potassium 3.7 (3.5-5.1) mEq/L Chloride 106 (98-107) mEq/L Carbon Dioxide 23 (23-29) mEq/L BUN 12 (6-20) mg/dL Creatinine 0.71 (0.70-1.30) mg/dL Glucose 149 H (70-105) mg/dL Calcium 8.5 L (8.6-10.3) mg/dL Calcium panel 10/26/17 Range/Units 06:54 Calcium 8.5 L (8.6-10.3) mg/dL Pituitary panel 10/26/17 Range/Units 06:54 Sodium 134 L (136-145) mEq/L Potassium 3.7 (3.5-5.1) mEq/L Chloride 106 (98-107) mEq/L Carbon Dioxide 23 (23-29) mEq/L BUN 12 (6-20) mg/dL Creatinine 0.71 (0.70-1.30) mg/dL Glucose 149 H (70-105) mg/dL Calcium 8.5 L (8.6-10.3) mg/dL Adrenal panel 10/26/17 Range/Units 06:54 Sodium 134 L (136-145) mEq/L Potassium 3.7 (3.5-5.1) mEq/L Chloride 106 (98-107) mEq/L Carbon Dioxide 23 (23-29) mEq/L BUN 12 (6-20) mg/dL Creatinine 0.71 (0.70-1.30) mg/dL Glucose 149 H (70-105) mg/dL Calcium 8.5 L (8.6-10.3) mg/dL - Imaging Abdominal x-ray: report reviewed, image reviewed (personally reviewed and interpreted by me)
[2017-10-26] MEDS ORDERED: Ipratropium/Albuterol Neb 3 ML ONE (11:26)
[2017-10-26] MEDS: Ipratropium/Albuterol Neb 3 ML IH SCH ×3 (11:28→21:45)
[2017-10-27] MEDS: Piperacillin/Tazobactam 3.375 GM/200 ML BAG IVPB SCH ×2 (02:36→18:14)
[2017-10-27] MEDS: Ipratropium/Albuterol Neb 3 ML IH SCH ×4 (04:17→22:15)
[2017-10-27 04:38] LABS: Mean Platelet Volume 9.3 fL (9.4-12.4); Red Cell Distribution Width 12.4 % (11.5-14.5)
[2017-10-27 04:39] LABS: Hemoglobin 15.4 g/dL (12.9-16.9); Mean Corpuscular Hemoglobin 31.6 pg (28.0-33.3); Mean Corpuscular Volume 90.2 fL (83.0-100.0); Platelet Count 283 K/mcL (140-400); Red Blood Count 4.88 M/mcL (4.19-5.50)
[2017-10-27 05:09] LABS: BUN/Creatinine Ratio 22 (6-26); Blood Urea Nitrogen 15 mg/dL (6-20); Calcium 8.3 mg/dL (8.6-10.3); Carbon Dioxide 19 mEq/L (23-29); Chloride 107 mEq/L (98-107); Glucose 131 mg/dL (70-105); Osmolality,Calculated 281 (280-300); Potassium 4.5 mEq/L (3.5-5.1); Sodium 134 mEq/L (136-145); eGFR For African Americans > 60 (> 60); eGFR For Non-African Americans > 60 (> 60)
[2017-10-27 05:18] LABS: Eosinophils # 0.7 K/mcL (0.0-0.6); Lymphocytes # 1.4 K/mcL (0.6-4.6); Monocytes # 0.7 K/mcL (0.0-1.3); Platelet Estimate Normal (Normal)
[2017-10-27] MEDS: D5% in 0.45% NACL w KCl 20 MEQ/1,000 ML MLS IVC SCH (05:46)
[2017-10-27] MEDS: *HR* Enoxaparin 40 MG/0.4 ML SYRINGE SQ SCH (05:47)
[2017-10-27] MEDS ORDERED: Lidocaine -MPF 1% 5 ML AMPUL INFILT ONE ×2 (09:44→09:48)
--- NOTE | 2017-10-27 09:49 | General Surgery Progress Note ---
Date of Encounter: 10/27/17 Time of Encounter: 09:42 - Assessment and Plan (1) Diverticulitis of colon with perforation Current Visit: Yes Status: Acute 42M with diverticulitis with free air, no evidence of active extravasation on CT scan; currently on antibiotics with worsening leukocytosis; clinically patient is afebrile, mildy tachycardic, tender on exam but improved compared to admission; patient does report bowel movement and is having flatus; lactate is wnl; at present, although his WBC is worse and he has a bandemia, he appears to be doing better overall; literally the only concern thing about this patient is his wbc; - NPO; will cont to hold on giving diet at present; will plan for TPN - IVF; bolus this AM; - cont abx regimen; in light of worsening wbc with bandemia - cont with current pain regimen - in regard to the OR: if the CT scan does not demonstrate an abscess to drain, then I will take the patient to the OR because, at present, even though the patient is feeling better, medical management is essentially failing. I would take him for an abdominal washout, possible bowel resection either today or tomorrow Qualifiers: Diverticulitis bleeding: without bleeding Qualified Code(s): K57.20 - Diverticulitis of large intestine with perforation and abscess without bleeding Subjective Patient reports: no new complaints, feels better, still having pain, pain is less, voiding w/o difficulty, flatus, bowel movement, afebrile Objective Vital Signs - Last 8 Hours Temp Pulse Resp BP Pulse Ox 10/27/17 06:23 98.2 F 96 18 150/95 95 10/27/17 04:58 97.8 F 96 18 153/92 93 10/27/17 04:17 16 91 Intake and Output 10/26/17 10/27/17 10/27/17 23:59 07:59 15:59 Intake Total 678 / 678 1000 / 1000 0 / 0 Output Total 50 / 50 0 / 0 Balance 628 / 628 1000 / 1000 0 / 0 Intake: IV Fluids 678 / 678 1000 / 1000 KCl 20mEq IN D5%-0.45 NACL 20 478 / 478 1000 / 1000 meq In 1,000 ml @ 125 mls/hr IVC .Q8H [facility] Rx#:[id number] Zosyn Premix 3.375 GM/200 ML 3. 200 / 200 375 gm In 200 ml @ 50 mls/hr IVPB Q8H [facility] Rx#:[id number] Oral 0 / 0 0 / 0 0 / 0 Output: Urine 50 / 50 0 / 0 Other: Meal npo NPO Percent of Meal Consumed 0% Stool Size Small Stool Consistency soft Stool Color Brown # Bowel Movements 1 Blood Glucose* 125 116 - General physical appearance well developed, no distress - ENT normocephalic - Neck Neck exam: no lymphadectomy - Respiratory normal expansion, normal respiratory effort - Cardiovascular Cardiovascular exam: Present: RRR - Abdomen Abdomen: Present: soft, tender (11/02) Abdominal Tenderness: LLQ, suprapubic - Integumentary no rash - Neurologic CN 2-12 grossly intact - Psychiatric oriented to time, oriented to person, oriented to place - Labs 10/27/17 04:16 10/27/17 04:16 Diabetes panel 10/27/17 Range/Units 04:16 Sodium 134 L (136-145) mEq/L Potassium 4.5 (3.5-5.1) mEq/L Chloride 107 (98-107) mEq/L Carbon Dioxide 19 L (23-29) mEq/L BUN 15 (6-20) mg/dL Creatinine 0.69 L (0.70-1.30) mg/dL Glucose 131 H (70-105) mg/dL Calcium 8.3 L (8.6-10.3) mg/dL Calcium panel 10/27/17 Range/Units 04:16 Calcium 8.3 L (8.6-10.3) mg/dL Pituitary panel 10/27/17 Range/Units 04:16 Sodium 134 L (136-145) mEq/L Potassium 4.5 (3.5-5.1) mEq/L Chloride 107 (98-107) mEq/L Carbon Dioxide 19 L (23-29) mEq/L BUN 15 (6-20) mg/dL Creatinine 0.69 L (0.70-1.30) mg/dL Glucose 131 H (70-105) mg/dL Calcium 8.3 L (8.6-10.3) mg/dL Adrenal panel 10/27/17 Range/Units 04:16 Sodium 134 L (136-145) mEq/L Potassium 4.5 (3.5-5.1) mEq/L Chloride 107 (98-107) mEq/L Carbon Dioxide 19 L (23-29) mEq/L BUN 15 (6-20) mg/dL Creatinine 0.69 L (0.70-1.30) mg/dL Glucose 131 H (70-105) mg/dL Calcium 8.3 L (8.6-10.3) mg/dL Consult Discharge Plan - Plan Referrals: NONE,PCP [Primary Care Provider] - Jenise Dalal [Family Provider] -
[2017-10-27] MEDS ORDERED: D5% in 0.45% NACL w KCl 20 MEQ/1,000 ML MLS IVC SCH (09:50)
--- NOTE | 2017-10-27 09:51 | General Surgery Progress Note ---
Date of Encounter: 10/27/17 Time of Encounter: 09:51 - Assessment and Plan (1) Diverticulitis of colon with perforation Current Visit: Yes Status: Acute Concern for free air associated with perforated diverticulitis. Patient's first episode of Diverticulitis. Currently hemodynamically stable and continues to improve. Pain is controlled with Morphine. continue conservative mgmt for now. Risks and benefits previously discussed with patient. WBC 23.0 - > 22.1 -> 33.2 (today). - repeat AM labs; closely monitor WBC and vitals - serial abd exams - ct pain mgmt w/ morphine - ct abx (Zosyn day 3) - ct IVF - CXR ordered for reevaluation of free air in the abd Qualifiers: Diverticulitis bleeding: without bleeding Qualified Code(s): K57.20 - Diverticulitis of large intestine with perforation and abscess without bleeding Objective Vital Signs - Last 8 Hours Temp Pulse Resp BP Pulse Ox 10/27/17 06:23 98.2 F 96 18 150/95 95 10/27/17 04:58 97.8 F 96 18 153/92 93 10/27/17 04:17 16 91 Intake and Output 10/26/17 10/27/17 10/27/17 23:59 07:59 15:59 Intake Total 678 / 678 1000 / 1000 0 / 0 Output Total 50 / 50 0 / 0 Balance 628 / 628 1000 / 1000 0 / 0 Intake: IV Fluids 678 / 678 1000 / 1000 KCl 20mEq IN D5%-0.45 NACL 20 478 / 478 1000 / 1000 meq In 1,000 ml @ 125 mls/hr IVC .Q8H [facility] Rx#:[id number] Zosyn Premix 3.375 GM/200 ML 3. 200 / 200 375 gm In 200 ml @ 50 mls/hr IVPB Q8H [facility] Rx#:[id number] Oral 0 / 0 0 / 0 0 / 0 Output: Urine 50 / 50 0 / 0 Other: Meal npo NPO Percent of Meal Consumed 0% Stool Size Small Stool Consistency soft Stool Color Brown # Bowel Movements 1 Blood Glucose* 125 116 - Labs 10/27/17 04:16 10/27/17 04:16 Diabetes panel 10/27/17 Range/Units 04:16 Sodium 134 L (136-145) mEq/L Potassium 4.5 (3.5-5.1) mEq/L Chloride 107 (98-107) mEq/L Carbon Dioxide 19 L (23-29) mEq/L BUN 15 (6-20) mg/dL Creatinine 0.69 L (0.70-1.30) mg/dL Glucose 131 H (70-105) mg/dL Calcium 8.3 L (8.6-10.3) mg/dL Calcium panel 10/27/17 Range/Units 04:16 Calcium 8.3 L (8.6-10.3) mg/dL Pituitary panel 10/27/17 Range/Units 04:16 Sodium 134 L (136-145) mEq/L Potassium 4.5 (3.5-5.1) mEq/L Chloride 107 (98-107) mEq/L Carbon Dioxide 19 L (23-29) mEq/L BUN 15 (6-20) mg/dL Creatinine 0.69 L (0.70-1.30) mg/dL Glucose 131 H (70-105) mg/dL Calcium 8.3 L (8.6-10.3) mg/dL Adrenal panel 10/27/17 Range/Units 04:16 Sodium 134 L (136-145) mEq/L Potassium 4.5 (3.5-5.1) mEq/L Chloride 107 (98-107) mEq/L Carbon Dioxide 19 L (23-29) mEq/L BUN 15 (6-20) mg/dL Creatinine 0.69 L (0.70-1.30) mg/dL Glucose 131 H (70-105) mg/dL Calcium 8.3 L (8.6-10.3) mg/dL Consult Discharge Plan - Plan Referrals: NONE,PCP [Primary Care Provider] - Jenise Dalal [Family Provider] -
[2017-10-27 12:36] LABS: Magnesium 2.1 mg/dL (1.6-2.6)
[2017-10-27] MEDS ORDERED: D10% in Water 500 ML IVC PRN ×2 (12:42→16:45)
[2017-10-27] MEDS ORDERED: Dextrose Gel 15 GM/37.5 ML TUBE PO PRN ×4 (13:39→16:45)
[2017-10-27] MEDS ORDERED: *HR* Dextrose 50 % in Water (Syg) 50 ML SYRINGE IVP PRN ×2 (13:39→16:45)
[2017-10-27] MEDS ORDERED: D5% in Water 1,000 ML IVC PRN ×2 (13:39→16:45)
[2017-10-27] MEDS ORDERED: 0.9 % Sodium Chloride 1,000 ML IVC SCH ×2 (13:45→16:45)
[2017-10-27] MEDS ORDERED: *HR* FentaNYL (PF) 100 MCG/2 ML VIAL IVP ONE ×2 (14:25→22:18)
[2017-10-27] MEDS ORDERED: *HR* Midazolam HCl 2 MG/2 ML VIAL IVP ONE (14:25)
[2017-10-27] MEDS ORDERED: 0.9 % Sodium Chloride 500 ML ONE (14:37)
[2017-10-27] MEDS ORDERED: dilTIAZem HCl 100 MG in D5% in Water 50 ML IVC SCH ×2 (15:15→15:31)
--- NOTE | 2017-10-27 15:21 | Event Note ---
Date of Encounter: 10/27/17 Time of Encounter: 14:45 Call to interventional radiology re:patient went into new onset atrial fibrillation with rapid ventricular response (heart rate 178) when he was placed in the prone position for drain placement. EKG was reviewed and is consistent with atrial fibrillation with RVR, nonspecific ST NT wave changes. Upon exam, he has irregularly irregular pulse, rate 160s to one 80s, BP is stable. Mr. Garzon denies any history of atrial fibrillation, coronary artery disease, symptoms of angina, but notably he has a significant smoking history of one pack per day for greater than 20 years. Of note he had a CT of the chest with contrast today which noted small bilateral pleural effusions, adjacent consolidation of the lung bases as well as the right middle lobe and lingula. Hazy ground glass opacities are seen anteriorly and the left upper lobe. No mention of concern for PE. His white blood cell count has increased despite consistent antibiotics (Zosyn) and he was having a drain placed today for an abdominal abscess. Currently, he denies shortness of breath, dizziness, chest pain, nausea, or near syncope. He reports some fluttering and his chest. His I/Os are not accurate. They currently reflect a 12L positive balance; however, the patient states he has been urinating frequently and it has not been recorded. There is no weight for the patient Plan: [id number] score of 1 (HTN) correlates with 1.3% risk of CVA at one year follow -up and does not warrant any anti-thrombotic therapy at this point in time beyond ASA. -Diltiazem bolus 10 mg now, titrate diltiazem drip to keep heart rate less than 100 bpm. -Transfer to advanced care floor for titration of diltiazem -if the patient converts today with the diltiazem, per IR the will consider placing the drain tomorrow -STRICT I&Os including standing scale weight now and daily; given bilateral pleural effusions will treat with 40 mg Lasix now and reassess in the a.m. -add Levaquin for pneumonia per CT -consider cardiology consult if he does not convert or if need for further evaluation i.e. possible underlying ASHD -Sputum culture Blood culture x2 Will review with Dr. valladares
[2017-10-27] MEDS ORDERED: Furosemide 40 MG/4 ML VIAL IVP ONE (15:23)
--- NOTE | 2017-10-27 15:25 | IR Progress Note ---
Patient reports: other (See below) Vital Signs: Vital Signs/O2 Sat, Most Current Temp Pulse Resp BP Pulse Ox 97.9 F 72 18 161/95 96 10/27/17 10:40 10/27/17 10:40 10/27/17 10:48 10/27/17 10:40 10/27/17 10:48 Recent Labs: Lab Results 10/27/17 10/27/17 10/27/17 10:46 04:16 04:16 WBC 33.7 H* RBC 4.88 Hgb 15.4 Hct 44.0 MCV 90.2 MCH 31.6 MCHC 35.0 RDW 12.4 Plt Count 283 MPV 9.3 L Neutrophils # 31.0 H Lymphocytes # 1.4 Monocytes # 0.7 Eosinophils # 0.7 H Sodium 134 L Potassium 4.5 Chloride 107 Carbon Dioxide 19 L BUN 15 Creatinine 0.69 L Est GFR ( Amer) > 60 Est GFR (Non-Af Amer) > 60 BUN/Creatinine Ratio 22 Glucose 131 H Lactic Acid Calcium 8.3 L Phosphorus 2.0 L Magnesium 2.1 10/26/17 10/26/17 10/26/17 09:41 06:54 06:54 WBC 33.2 H* D RBC 5.14 Hgb 16.0 Hct 46.4 MCV 90.3 MCH 31.1 MCHC 34.5 RDW 12.2 Plt Count 295 MPV 9.4 Neutrophils # 29.9 H Lymphocytes # 2.0 Monocytes # Eosinophils # Sodium 134 L Potassium 3.7 Chloride 106 Carbon Dioxide 23 BUN 12 Creatinine 0.71 Est GFR ( Amer) > 60 Est GFR (Non-Af Amer) > 60 BUN/Creatinine Ratio 17 Glucose 149 H Lactic Acid 0.9 Calcium 8.5 L Phosphorus Magnesium 10/25/17 10/25/17 06:14 06:14 WBC 22.1 H RBC 5.57 H Hgb 17.2 H D Hct 50.3 H MCV 90.3 MCH 30.9 MCHC 34.2 RDW 12.0 Plt Count 288 MPV 9.7 Neutrophils # 19.5 H Lymphocytes # 1.3 Monocytes # 1.3 Eosinophils # Sodium 136 Potassium 3.6 Chloride 110 H Carbon Dioxide 21 L BUN 11 Creatinine 0.79 Est GFR ( Amer) > 60 Est GFR (Non-Af Amer) > 60 BUN/Creatinine Ratio 14 Glucose 167 H Lactic Acid Calcium 7.9 L Phosphorus 2.3 L Magnesium 1.9 Assessment and Plan Patient brought to IR for CT guided pelvic drain placement. He became taccycardic and diaphoretic once placed prone. Procedure was aborted, the patient was placed upright and EKG was performed. He was found to be in new onset Afib with RVR. Surgery notified who came to CT scanner. Patient felt better once upright, denying chest pain or shortness of breath. He was brought back to the medical floor with a consult for cardiology to be placed by surgery. The patient does not appear to be stable for CT guided drain placement at this time due to his cardiac situation. Once he is back in sinus rhythm and stable, the plan is for CT guided drainage the next morning. I discussed with surgery that if he his clinical condition worsens this evening/ night, the IR call team will come in and place the drain. This was discussed with Dr. Hernandez, who is ammenable to this plan. Nitesh Brown MD
--- NOTE | 2017-10-27 15:45 | Cardiology Consult Note ---
Date of Encounter: 10/27/17 Time of Encounter: 15:40 Assessment and Plan (1) Atrial fibrillation with RVR Current Visit: Yes Status: Acute New onset atrial fibrillation with RVR. Reports symptoms starting during CT scan with contrast today. HR 120-170. EKG shows atrial fibrillation with RVR, HR [address] changes. Agree with IV cardizem bolus and IV gtt. Check TTE and TSH. He is a CHADs VASc 0. Increased risk of CVA and recommendation for asa discussed. Recommend asa when ok from surgical standpoint. Patient pending drain placement today. Discussion w patient/family: The assessment and plan as outlined above was discussed with the patient and/or family members who expressed understanding and agreement. All questions were answered. Thank you for involving us in the care of your patient. Please call with any questions. History of Present Illness Consult date: 10/27/16 Requesting physician: Angel Hernandez Consult reason: new onset afib with RVR Chief complaint: abdominal pain History of present illness: Mr. Garzon is a 42 year old male with no significant medical history who presented with severe abdominal pain, nausea, and vomiting. He was found to have diverticulitis with perforation and was admitted to surgery. Today he developed atrial fibrillation with RVR. He underwent a CT scan with contrast today. He states that he suddenly became SOB during CT and has felt unwell since that time. He was scheduled for a drain placement for abdominal abcess with IR. Procedure cancelled when HR noted to be in the 170's. EKG demonstrated atrial fibrillation with RVR. Discussed with surgical GRAIN SCOOPER. Patient suspected to be developing PNA and is being started on levaquin. Cardizem gtt ordered. He denies previous cardiac history or work-up. Denies chest pain, SOB, or palpitations leading up to admission. Past Med Surg Social Fam HX - Past Medical History Attestation: Yes The following information was validated with the patient. Source: patient Medical history: no medical history Psychiatric history: no psych history - Past Surgical History Surgical History: no surgical history - Social History Smoking Status: Current every day smoker Packs per day: 1pk Smokeless Tobacco Status: No Alcohol use: heavy Drug use: none Medications and Allergies No Known Home Drugs 10/24/17 [History] 3 Allergy/AdvReac Type Severity Reaction Status Date / Time No Known Allergies Allergy Verified 10/24/17 09:31 All Systems Review: A 10-system review of systems was performed and is negative for pertinent findings except as documented above in the HPI. Physical Examination Vital Signs Temp Pulse Resp BP Pulse Ox 10/27/17 15:50 20 93 10/27/17 15:36 98.7 F 175 20 148/90 93 10/27/17 10:48 18 96 10/27/17 10:40 97.9 F 72 18 161/95 96 10/27/17 06:23 98.2 F 96 18 150/95 95 10/27/17 04:58 97.8 F 96 18 153/92 93 10/27/17 04:17 16 91 10/26/17 23:43 98.1 F 100 17 164/98 92 10/26/17 21:46 18 94 10/26/17 20:25 98.0 F 102 17 146/85 93 10/26/17 18:37 16 143/84 97 Intake and Output 10/27/17 10/27/17 10/27/17 07:59 15:59 23:59 Intake Total 1000 / 1000 0 / 0 Output Total 0 / 0 0 / 0 Balance 1000 / 1000 0 / 0 Intake: IV Fluids 1000 / 1000 KCl 20mEq IN D5%-0.45 NACL 20 1000 / 1000 meq In 1,000 ml @ 125 mls/hr IVC .Q8H REJI Rx#:[id number] Oral 0 / 0 0 / 0 Output: Urine 0 / 0 0 / 0 Other: Meal NPO Percent of Meal Consumed 0% Stool Size Small Stool Consistency soft Stool Color Brown # Voids 1 # Bowel Movements 1 0 Blood Glucose* 116 118 General: Conversant, No Apparent Distress HEENT: Atraumatic, Normocephaly, Mucus Membranes Moist Neck: No JVD, Normal carotid pulses Cardiac: Other (Irregularly irregular. ) Lungs: Normal Breath Sounds, No Wheeze, Rales, Rhonchi Neuro: Alert and responsive, No focal deficits noted Abdomen: Soft, Non-Tender Skin: No rashes noted on visualized skin Musculoskeletal: No Chest Wall Tenderness Extremities: No Clubbing, No Cyanosis, No Edema, Normal Pulses Results 10/27/17 04:16 10/27/17 04:16 Lab Results 10/27/17 10/27/17 10/27/17 04:16 04:16 10:46 WBC 33.7 H* Hgb 15.4 Hct 44.0 Plt Count 283 Sodium 134 L Potassium 4.5 Chloride 107 Carbon Dioxide 19 L BUN 15 Creatinine 0.69 L Glucose 131 H Calcium 8.3 L Magnesium 2.1 - Imaging and Cardiology Echo: pending - EKG Interpretation EKG results cardiology: personally reviewed Consult Discharge Plan - Plan Referrals: NONE,PCP [Primary Care Provider] - Jenise Dalal [Family Provider] -
[2017-10-27] MEDS ORDERED: Levofloxacin 750 MG/150 ML 750 MG/150 ML BAG IVPB SCH (16:00)
--- NOTE | 2017-10-27 16:24 | Event Note ---
<BarryNitesh - Last Filed: 10/27/17 16:28> Date of Encounter: 10/27/17 Time of Encounter: 16:24 Critical care team was contacted after patient went into atrial fibrillation with rapid ventricular response and was reportedly tachypneic, in mild distress following his CT-guided pelvic drain placement. Procedure was aborted by interventional radiology after patient went into new onset atrial fibrillation with rapid ventricular response. Surgeon then approached critical care team for possibility of transfer to the intensive care unit with concerns of unstable atrial fibrillation. Critical care team then spoke with and examined the patient. He remained tachycardic however was in no distress, not hypotensive and had already been seen by cardiology. After further discussion with surgery team, patient was transferred to telemetry unit and critical care consult was not placed. We will remain available for consult if his condition should worsen or primary feels it is warranted. <Mick Benoit - Last Filed: 10/27/17 18:16> Date of Encounter: 10/27/17 I examined this patient and my medical decision-making was reviewed with the Resident Physician. I agree with the documented findings, disposition and treatment plan as described except to the extent set forth below. We were called to assess patient and the floor. Patient stated that he is feeling better and his breathing is better. Patient in mild distress mainly from pain. Lungs has some diminished in the bases. Heart S1 and S2 is audible Abdomen is distended with mild tenderness and some rigidity Alert oriented 3 Assessment and plan: Patient with sepsis-like picture and he will be transferred to 2 LA. and needs coverage with antibiotics and fluids with incentive spirometry. Please call for any questions.
[2017-10-27] MEDS ORDERED: *HR* Metoprolol 5 MG/5 ML VIAL IVP ONE (16:38)
[2017-10-27] MEDS: dilTIAZem HCl 100 MG in D5% in Water 50 ML IVC SCH ×2 (16:39→22:20)
[2017-10-27] MEDS ORDERED: Ondansetron 4 MG/2 ML VIAL IVP PRN (16:45)
[2017-10-27] MEDS ORDERED: Clinimix E 5%-15% SOLUTION 2,000 ML with MVI, adult with vitamin K 10 ML IVC SCH ×2 (17:00)
[2017-10-27] MEDS ORDERED: Insulin LISPRO 300 UNITS/3 ML VIAL SQ SCH (18:00)
[2017-10-27] MEDS: Insulin LISPRO 300 UNITS/3 ML VIAL SQ SCH (18:16)
--- NOTE | 2017-10-27 19:42 | Anesthesia Evaluation PreOp ---
Date of Encounter: 10/27/17 Time of Encounter: 19:39 - Past History Planned Operation: diagnostic lap intra-abdominal washout, poss ex lap Cardiac History: Arrhythmia (atrial fibrillation with RVR currently (new onset this hospitalization)) Pulmonary History: Smoker PAY STATION ATTENDANT History: Denies Any Significant HX Other Medical History: Other (diverticulitis of colon with perforation and abscess) Anesthesia History: No Prior Anesthetic Complications (only underwent wisdom teeth surgery/anesthesia; no fhx of problems with anesthesia that he knows of) Alcohol Use: heavy Drug use: none Medications and Allergies No Known Home Drugs 10/24/17 [History] 3 Allergy/AdvReac Type Severity Reaction Status Date / Time No Known Allergies Allergy Verified 10/24/17 09:31 - Meds/Allergy Pre-op Review Medications Reviewed: Yes Allergies Reviewed: Yes Beta Blockers on Current Med List: No Anesthesia Results - Labs 10/27/17 04:16 10/27/17 04:16 - Imaging EKG: image reviewed (a fib with RVR) Additional studies: TTE completed but results are not available at this time Anesthesia Exam Last Vital Signs Temp 98.7 F 10/27/17 15:36 Pulse 160 10/27/17 19:28 Resp 16 10/27/17 19:28 BP 140/80 10/27/17 19:28 Pulse Ox 93 10/27/17 19:28 Weight: 100 kg - HEENT Pupil (Motor): Pupils equal, EOMI Mallampati: III Teeth: Normal Oral Opening: Greater than 3 - PAY STATION ATTENDANT LOC: Oriented - Cardiac Rhythm: Irregular (rapid) - Pulmonary Breath Sounds: bilateral Clear Respiratory Effort: Symmetrical Anesthesia Assess/Plan ASA Score: 3 Modified [place] Scale for Level of Consciousness: Cooperative, oriented, and tranquil Anesthetic Plan: General Monitoring Plan: Standard Monitors Recovery Plan: PACU
[2017-10-27] MEDS ORDERED: *HR* FentaNYL (PF) 100 MCG/2 ML VIAL ONE (22:13)
--- NOTE | 2017-10-27 22:41 | IR Procedure Note ---
Date of procedure: 10/27/17 Consent Obtained: Written consent Timeout: Correct patient and procedure verified, Correct site verified, Time out performed, Skin prep completed Local anesthetic: Lidocaine 1% Indications: Pelvic abscess, partial bowel obstruction, new onset Afib/RVR Procedure Performed: Pelvic abscess drain placement Was there an automotive parts counter assistant present: No Site/Technique: Right transgluteal 12fr drain placed. Tolerated well. Results/Findings: Thin chappell foul smelling fluid, 60ml, obtained and sent to lab. Estimated blood loss (cc): 1 Complications: None; Tolerated procedure well Post Procedure Treatment Plan: Monitoring in pts room. CT shows collection collapsed. Specimen: To lab
[2017-10-28] MEDS: Insulin LISPRO 300 UNITS/3 ML VIAL SQ SCH ×4 (00:48→21:03)
[2017-10-28] MEDS: Piperacillin/Tazobactam 3.375 GM/200 ML BAG IVPB SCH ×3 (01:31→21:19)
[2017-10-28] MEDS: *HR* Morphine 2 MG/ML SYRINGE IVP PRN ×4 (01:35→16:36)
[2017-10-28] MEDS: dilTIAZem HCl 100 MG in D5% in Water 50 ML IVC SCH ×2 (03:00→11:05)
[2017-10-28] MEDS: Ipratropium/Albuterol Neb 3 ML IH SCH ×4 (04:16→22:11)
[2017-10-28 05:00] LABS: Basophils % 0.5 %; Eosinophils % 0.1 %; Hemoglobin 14.2 g/dL (12.9-16.9); Lymphocytes % 5.2 %; Red Cell Distribution Width 12.6 % (11.5-14.5)
[2017-10-28 05:02] LABS: Basophils # 0.1 K/mcL (0.0-0.2); Hematocrit 41.4 % (37.5-50.1); Lymphocytes # 1.5 K/mcL (0.6-4.6); Mean Corpuscular HGB Conc 34.3 g/dL (31.6-35.5); Mean Corpuscular Hemoglobin 31.1 pg (28.0-33.3); Mean Corpuscular Volume 90.6 fL (83.0-100.0); Mean Platelet Volume 8.8 fL (9.4-12.4); Monocytes # 1.3 K/mcL (0.0-1.3); Monocytes % 4.5 %; Platelet Count 276 K/mcL (140-400); Red Blood Count 4.57 M/mcL (4.19-5.50); Segmented Neutrophils % 87.7 %
[2017-10-28 05:10] LABS: Magnesium 1.9 mg/dL (1.6-2.6); Phosphorous 2.7 mg/dL (2.7-4.5)
[2017-10-28 05:12] LABS: BUN/Creatinine Ratio 24 (6-26); Blood Urea Nitrogen 13 mg/dL (6-20); Calcium 7.1 mg/dL (8.6-10.3); Carbon Dioxide 23 mEq/L (23-29); Chloride 105 mEq/L (98-107); Glucose 113 mg/dL (70-105); Osmolality,Calculated 285 (280-300); Potassium 3.3 mEq/L (3.5-5.1); Sodium 137 mEq/L (136-145); eGFR For African Americans > 60 (> 60); eGFR For Non-African Americans > 60 (> 60)
[2017-10-28] MEDS: *HR* Enoxaparin 40 MG/0.4 ML SYRINGE SQ SCH (05:36)
[2017-10-28 05:40] LABS: Platelet Estimate Normal (Normal)
--- NOTE | 2017-10-28 09:03 | General Surgery Progress Note ---
Date of Encounter: 10/28/17 Time of Encounter: 07:00 - Assessment and Plan (1) Diverticulitis of colon with perforation Current Visit: Yes Status: Acute 42M with hinchey class II diverticulitis complicated by afib with RVR now s/p drainage of abscess by IR; improvement in pain, HR, and WBC; patient feels better - start clear liquids today - wean cardizem per cardiology - cont abx - trend WBC; can plan for PO abx and discharge once normal for 24hrs - once patient is on regular diet, will begin to wean tpn - no acute surgery Qualifiers: Diverticulitis bleeding: without bleeding Qualified Code(s): K57.20 - Diverticulitis of large intestine with perforation and abscess without bleeding Subjective Patient reports: feels better, still having pain, pain is less, flatus, afebrile , other (afib with RVR, but improved) Objective Vital Signs - Last 8 Hours Temp Pulse Resp BP Pulse Ox 10/28/17 07:31 97.8 F 98 16 142/82 93 10/28/17 04:56 97.5 F L 115 16 94 10/28/17 04:34 104 16 134/74 93 10/28/17 04:19 14 94 10/28/17 01:39 121 16 142/88 93 Intake and Output 10/27/17 10/28/17 10/28/17 23:59 07:59 15:59 Intake Total 250.0 / 250.0 50 / 50 Output Total 10 5 / 5 Balance 240.0 / 240.0 45 / 45 Intake: IV Fluids 250.0 / 250.0 50 / 50 Cardizem 100 MG In Dextrose 5% 50.0 / 50.0 50 / 50 (ADD-[place]) 50 ML @ 5 MG/HR 2 .5 mls/hr IVC .Q20H REJI Rx#: [id number] Zosyn Premix 3.375 GM/200 ML 3. 200 / 200 375 gm In 200 ml @ 50 mls/hr IVPB Q8H REJI Rx#:[id number] Output: Wound Drainage 5 / 5 Right Lower Lateral Back 10 5 / 5 Other: # Voids 1 Weight 118 kg Blood Glucose* 96 123 Patient Weight 10/28/17 23:59 Weight 118 kg - General physical appearance well developed, no distress - ENT normocephalic - Respiratory normal expansion, normal respiratory effort - Cardiovascular Cardiovascular exam: Present: irregular rhythm - Abdomen Abdomen: Present: soft, distended (mildly distended, but significant improved) - Integumentary no rash - Neurologic CN 2-12 grossly intact - Psychiatric oriented to time, oriented to person, oriented to place - Labs 10/28/17 04:25 10/28/17 04:25 Diabetes panel 10/27/17 10/28/17 Range/Units 10:46 04:25 Sodium 137 (136-145) mEq/L Potassium 3.3 L (3.5-5.1) mEq/L Chloride 105 (98-107) mEq/L Carbon Dioxide 23 (23-29) mEq/L BUN 13 (6-20) mg/dL Creatinine 0.55 L (0.70-1.30) mg/dL Glucose 113 H (70-105) mg/dL Calcium 7.1 L (8.6-10.3) mg/dL Triglycerides 232 H (< 150) mg/dL Thyroid panel 10/28/17 Range/Units 04:25 TSH 2.979 (0.340-5.600) mcIU/mL Calcium panel 10/27/17 10/28/17 10/28/17 Range/Units 10:46 04:25 04:25 Calcium 7.1 L (8.6-10.3) mg/dL Phosphorus 2.0 L 2.7 (2.7-4.5) mg/dL Pituitary panel 10/28/17 10/28/17 Range/Units 04:25 04:25 Sodium 137 (136-145) mEq/L Potassium 3.3 L (3.5-5.1) mEq/L Chloride 105 (98-107) mEq/L Carbon Dioxide 23 (23-29) mEq/L BUN 13 (6-20) mg/dL Creatinine 0.55 L (0.70-1.30) mg/dL Glucose 113 H (70-105) mg/dL Calcium 7.1 L (8.6-10.3) mg/dL TSH 2.979 (0.340-5.600) mcIU/mL Adrenal panel 10/28/17 Range/Units 04:25 Sodium 137 (136-145) mEq/L Potassium 3.3 L (3.5-5.1) mEq/L Chloride 105 (98-107) mEq/L Carbon Dioxide 23 (23-29) mEq/L BUN 13 (6-20) mg/dL Creatinine 0.55 L (0.70-1.30) mg/dL Glucose 113 H (70-105) mg/dL Calcium 7.1 L (8.6-10.3) mg/dL - Imaging Abdominal x-ray: report reviewed, image reviewed CT scan - chest: report reviewed, image reviewed Consult Discharge Plan - Plan Referrals: NONE,PCP [Primary Care Provider] - Jenise Dalal [Family Provider] -
[2017-10-28] MEDS: Levofloxacin 750 MG/150 ML 750 MG/150 ML BAG IVPB SCH (09:35)
--- NOTE | 2017-10-28 11:22 | Cardiology Progress Note ---
Date of Encounter: 10/28/17 Time of Encounter: 09:20 Assessment and Plan (1) Atrial fibrillation with RVR Current Visit: Yes Status: Acute New onset atrial fibrillation with RVR. Reports symptoms starting during CT scan with contrast yesterday. HR 120-170. EKG shows atrial fibrillation with RVR, HR [address] changes. Given IV cardizem bilus and IV gtt starting 10/27/17. HR improved some after PRIYA drain placement. Avg HR over 8 hrs is 100 bpm and currently in the upper 90's. He is on 7.5 mg/hr of cardizem. WIll start higher dose oral cardizem at 240 mg daily. B/p is tolerating. Wean off cardizem gtt. Check TTE . TSH is normal. Potassium is 3.3- replaced by primary team. He is a CHADs VASc 0. Increased risk of CVA and recommendation for asa discussed. Recommend asa. Discussed with surgery LICENSE EXAMINER, ok to start asa. Discussion w patient/family: The assessment and plan as outlined above was discussed with the patient and/or family members who expressed understanding and agreement. All questions were answered. Thank you for involving us in the care of your patient. Please call with any questions. Subjective Principal diagnosis: atrial fibrillation with RVR Interval history: Patient underwent NILSA drain placement last night for abdominal abcess. Nursing staff reported HR started to improve after that. Avg HR over last 8 hours is 100 bpm. HR this morning is 97-100. He is currently in 8/10 pain around PRIYA insertion site. Nurses are going to give pain medication. Objective Vital Signs, Last 4 Hours Temp Pulse Resp BP Pulse Ox 10/28/17 07:31 97.8 F 98 16 142/82 93 General: Conversant, No Apparent Distress HEENT: Atraumatic, Normocephaly, Mucus Membranes Moist Neck: No JVD, Normal carotid pulses Cardiac: Other (irregular) Lungs: Other (respirations labored, Scattered rhonic throughout. ) Neuro: Alert and responsive, No focal deficits noted Abdomen: Soft, Non-Tender Skin: No rashes noted on visualized skin Musculoskeletal: No Chest Wall Tenderness Extremities: No Clubbing, No Cyanosis, No Edema, Normal Pulses Results 10/28/17 04:25 10/28/17 04:25 Lab Results 10/27/17 10/28/17 10/28/17 10:46 04:25 04:25 WBC 28.5 H Hgb 14.2 Hct 41.4 Plt Count 276 Sodium 137 Potassium 3.3 L Chloride 105 Carbon Dioxide 23 BUN 13 Creatinine 0.55 L Glucose 113 H Calcium 7.1 L Magnesium 2.1 TSH 10/28/17 10/28/17 04:25 04:25 WBC Hgb Hct Plt Count Sodium Potassium Chloride Carbon Dioxide BUN Creatinine Glucose Calcium Magnesium 1.9 TSH 2.979 - Imaging and Cardiology Echo: pending - EKG Interpretation EKG results cardiology: personally reviewed Consult Discharge Plan - Plan Referrals: NONE,PCP [Primary Care Provider] - Jenise Dalal [Family Provider] -
[2017-10-28] MEDS: Aspirin Enteric Coated 81 MG Tablet PO SCH (11:48)
[2017-10-28] MEDS: Diltiazem CD (24hr) 240 MG CAPSULE PO SCH (11:48)
[2017-10-28] MEDS ORDERED: 0.9 % Sodium Chloride 1,000 ML IVC SCH (15:08)
--- NOTE | 2017-10-28 15:24 | Event Note ---
Date of Encounter: 10/28/17 Time of Encounter: 14:00 Pt reported feeling very short of breath after lying down for the echo. Reported lower ext swelling also. Noted 2+ edema BLLE to the knee, labored respirations, increased O2 demand, and continued cardizem gtt (less than for 24 hours duration at this time). Noted cardiology has signed off. Echo completed. Noted diastolic dysfunction and normal EF. Pt remains HTN up aprox 19KG since admission and has inaccurate I/Os to asses fluid balance Obtained BNP which was elevated. Pt with likely underlying uncontrolled HTN given diastolic dysfunction. A-fib with RVR likely mutlifactorial including pulmonary vs infectious etiology. [id number] score of 1 for HTN. Plan: diuresis Accurate I/O CXR in am, consider further diuresis pending If pt doesn't convert to SR after 48-hours, will need p.o. cardizem and ASA Consider HTN control at d/c (KWABENA vs BB vs HCTZ) pending above Aggressive pulmonary toileting Stop maintenance IVF Consider cardiology call back pending clinical course
[2017-10-28] MEDS: Furosemide 40 MG/4 ML VIAL IVP SCH ×2 (15:28→21:19)
[2017-10-28] MEDS: *HR* Metoprolol 5 MG/5 ML VIAL IVP PRN ×2 (16:36→22:36)
[2017-10-28] MEDS ORDERED: Clinimix E 5%-15% SOLUTION 2,000 ML with MVI, adult with vitamin K 10 ML IVC SCH (17:00)
--- NOTE | 2017-10-28 19:20 | Electrocardiograph Report ---
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
[2017-10-28] MEDS: *HR* OxyCODONE/APAP 5/325 TABLET PO PRN (21:19)
[2017-10-29] MEDS: Insulin LISPRO 300 UNITS/3 ML VIAL SQ SCH ×5 (01:10→23:22)
[2017-10-29] MEDS: Ipratropium/Albuterol Neb 3 ML IH SCH ×4 (03:29→21:38)
[2017-10-29] MEDS: *HR* OxyCODONE/APAP 5/325 TABLET PO PRN (05:52)
[2017-10-29] MEDS: *HR* Metoprolol 5 MG/5 ML VIAL IVP PRN ×3 (05:52→18:36)
[2017-10-29] MEDS: *HR* Enoxaparin 40 MG/0.4 ML SYRINGE SQ SCH (05:52)
[2017-10-29] MEDS: Piperacillin/Tazobactam 3.375 GM/200 ML BAG IVPB SCH ×3 (05:53→20:22)
[2017-10-29 05:57] LABS: Basophils % 0.1 %; Eosinophils % 0.5 %
[2017-10-29 05:59] LABS: Eosinophils # 0.2 K/mcL (0.0-0.6); Hematocrit 47.3 % (37.5-50.1); Immature Granulocytes % 6.3 % (0-4); Lymphocytes # 2.2 K/mcL (0.6-4.6); Lymphocytes % 6.5 %; Mean Corpuscular HGB Conc 33.8 g/dL (31.6-35.5); Mean Corpuscular Hemoglobin 30.8 pg (28.0-33.3); Mean Corpuscular Volume 91.1 fL (83.0-100.0); Mean Platelet Volume 8.7 fL (9.4-12.4); Monocytes # 1.9 K/mcL (0.0-1.3); Monocytes % 5.8 %; Platelet Count 280 K/mcL (140-400); Red Blood Count 5.19 M/mcL (4.19-5.50); Red Cell Distribution Width 12.4 % (11.5-14.5); Segmented Neutrophils % 80.8 %
[2017-10-29 06:35] LABS: BUN/Creatinine Ratio 20 (6-26); Blood Urea Nitrogen 12 mg/dL (6-20); Calcium 7.9 mg/dL (8.6-10.3); Carbon Dioxide 25 mEq/L (23-29); Chloride 100 mEq/L (98-107); Glucose 124 mg/dL (70-105); Magnesium 1.8 mg/dL (1.6-2.6); Osmolality,Calculated 279 (280-300); Phosphorous 3.2 mg/dL (2.7-4.5); Potassium 3.3 mEq/L (3.5-5.1); Sodium 134 mEq/L (136-145); eGFR For African Americans > 60 (> 60); eGFR For Non-African Americans > 60 (> 60)
[2017-10-29 06:47] LABS: Large Platelets Present (Not Present); Platelet Estimate Normal (Normal); Reactive Lymphocytes Present (Not Present); Toxic Granulation Present (Not Present)
[2017-10-29] MEDS: Diltiazem CD (24hr) 240 MG CAPSULE PO SCH (10:06)
[2017-10-29] MEDS: Aspirin Enteric Coated 81 MG Tablet PO SCH (10:06)
[2017-10-29] MEDS: Levofloxacin 750 MG/150 ML 750 MG/150 ML BAG IVPB SCH (10:06)
[2017-10-29] MEDS: Furosemide 40 MG/4 ML VIAL IVP SCH (10:06)
--- NOTE | 2017-10-29 10:30 | General Surgery Progress Note ---
<Garrett Ramey - Last Filed: 10/29/17 12:43> Date of Encounter: 10/29/17 Time of Encounter: 10:19 - Assessment and Plan (1) Diverticulitis of colon with perforation Current Visit: Yes Status: Acute hinchey class II diverticulitis complicated by afib with RVR now s/p drainage of abscess by IR day 3; improvement in pain, HR. Patient continues to clinically remain stable. WBC 33.7 -> 28.5 -> 33.4 (today). most likely due to PNA. May need abdominal washout, possible bowel resection if patient continues to decline. PICC line for access - continue soft diet - cont ABX (Levaquin and zosyn Day 3) - ct monitor WBC - diurese PRN - SLIV when tolerated PO - ct Rx pain management - serial abd exams - IS q1hr - ambulation with assistance TID Qualifiers: Diverticulitis bleeding: without bleeding Qualified Code(s): K57.20 - Diverticulitis of large intestine with perforation and abscess without bleeding (2) Bronchitis Current Visit: Yes Status: Acute worsening bilateral pleural effusions. WBC 33.7 -> 28.5 -> 33.4 (today). - ct ABX - recommended IS q1hr - CXR pending - hold fluids; ct lasix PRN - pulmonology consulted (3) Atrial fibrillation with RVR Current Visit: Yes Status: Acute AF w/ RVR. currently rate controlled. per management of cardiology Subjective Patient reports: no new complaints, feels better, tolerating a regular diet, voiding w/o difficulty, flatus, bowel movement, afebrile Narrative: No events overnight, no new complaints. Objective Vital Signs - Last 8 Hours Temp Pulse Resp BP Pulse Ox 10/29/17 06:38 98.5 F 103 18 129/84 94 10/29/17 05:00 98.2 F 124 18 117/94 94 Intake and Output 10/28/17 10/29/17 10/29/17 23:59 07:59 15:59 Intake Total 840 / 840 2203 / 2203 600 / 600 Output Total 2552 / 2552 2905 / 2905 225 / 225 Balance -1712 / -1712 -702 / -702 375 / 375 Intake: Oral 840 / 840 1000 / 1000 600 / 600 Intake, Autotransfusion Amount 1203 / 1203 Output: Urine 2550 / 2550 2900 / 2900 225 / 225 Wound Drainage 2 / 2 5 / 5 Right Lower Lateral Back 2 / 2 5 / 5 Other: Meal Dinner Percent of Meal Consumed 0% Stool Size Small Stool Consistency liquid Stool Color Brown # Bowel Movements 1 Weight 109.8 kg Blood Glucose* 113 117 Patient Weight 10/29/17 23:59 Weight 109.8 kg - General physical appearance well developed, well nourished, no distress - Eyes normal ocular movement - ENT normal mucosa, no hearing loss, no congestion - Neck Neck exam: no masses, no venous distension - Respiratory crackles: bilateral (lower lungs) - Cardiovascular Cardiovascular exam: Present: RRR - Abdomen Abdomen: Present: bowel sounds present, soft, non tender - Integumentary no rash, no growths, no abnormal pigmentation - Neurologic normal sensation - Psychiatric oriented to time, oriented to person, oriented to place, speech is normal, memory intact - Labs 10/29/17 04:57 10/29/17 04:57 Diabetes panel 10/29/17 Range/Units 04:57 Sodium 134 L (136-145) mEq/L Potassium 3.3 L (3.5-5.1) mEq/L Chloride 100 (98-107) mEq/L Carbon Dioxide 25 (23-29) mEq/L BUN 12 (6-20) mg/dL Creatinine 0.60 L (0.70-1.30) mg/dL Glucose 124 H (70-105) mg/dL Calcium 7.9 L (8.6-10.3) mg/dL Calcium panel 10/29/17 10/29/17 Range/Units 04:57 04:57 Calcium 7.9 L (8.6-10.3) mg/dL Phosphorus 3.2 (2.7-4.5) mg/dL Pituitary panel 10/29/17 Range/Units 04:57 Sodium 134 L (136-145) mEq/L Potassium 3.3 L (3.5-5.1) mEq/L Chloride 100 (98-107) mEq/L Carbon Dioxide 25 (23-29) mEq/L BUN 12 (6-20) mg/dL Creatinine 0.60 L (0.70-1.30) mg/dL Glucose 124 H (70-105) mg/dL Calcium 7.9 L (8.6-10.3) mg/dL Adrenal panel 10/29/17 Range/Units 04:57 Sodium 134 L (136-145) mEq/L Potassium 3.3 L (3.5-5.1) mEq/L Chloride 100 (98-107) mEq/L Carbon Dioxide 25 (23-29) mEq/L BUN 12 (6-20) mg/dL Creatinine 0.60 L (0.70-1.30) mg/dL Glucose 124 H (70-105) mg/dL Calcium 7.9 L (8.6-10.3) mg/dL Consult Discharge Plan - Plan Referrals: NONE,PCP [Primary Care Provider] - Kavita DalalConversio [Family Provider] - <Cornelio Caro - Last Filed: 10/30/17 10:14> Date of Encounter: 10/29/17 Objective Vital Signs - Last 8 Hours Temp Pulse Resp BP Pulse Ox 10/30/17 08:19 91 10/30/17 06:47 98.3 F 135 18 138/88 94 10/30/17 05:00 97.8 F 114 20 136/103 91 10/30/17 04:20 18 91 Intake and Output 10/29/17 10/30/17 10/30/17 23:59 07:59 15:59 Intake Total 446.4 / 446.4 790.2 / 790.2 170 / 170 Output Total 0 / 0 2049 0 / 0 Balance 446.4 / 446.4 -1259.8 / -1259.8 170 / 170 Intake: IV Fluids 206.4 / 206.4 250.2 / 250.2 50 / 50 Cardizem 100 MG In Dextrose 5% 6.4 / 6.4 50.2 / 50.2 50 / 50 (ADD-B[place]) 50 ML @ 2.5 MG/HR 1.25 mls/hr IVC .Q24H REJI Rx#: [id number] Zosyn Premix 3.375 GM/200 ML 3. 200 / 200 200 / 200 375 gm In 200 ml @ 50 mls/hr IVPB Q8H REJI Rx#:[id number] Oral 240 / 240 540 / 540 120 / 120 Output: Urine 2049 Wound Drainage 0 / 0 0 / 0 0 / 0 Right Lower Lateral Back 0 / 0 0 / 0 0 / 0 Other: Meal Dinner Breakfast Percent of Meal Consumed 65% 5% Stool Size Moderate Stool Consistency loose soft Stool Color Brown # Voids 1 # Bowel Movements 3 Weight 108.5 kg Blood Glucose* 123 150 Patient Weight 10/30/17 23:59 Weight 108.5 kg - Labs 10/30/17 05:02 10/30/17 05:02 Diabetes panel 10/30/17 Range/Units 05:02 Sodium 130 L (136-145) mEq/L Potassium 3.3 L (3.5-5.1) mEq/L Chloride 97 L (98-107) mEq/L Carbon Dioxide 25 (23-29) mEq/L BUN 13 (6-20) mg/dL Creatinine 0.59 L (0.70-1.30) mg/dL Glucose 127 H (70-105) mg/dL Calcium 7.9 L (8.6-10.3) mg/dL Calcium panel 10/30/17 10/30/17 Range/Units 05:02 05:02 Calcium 7.9 L (8.6-10.3) mg/dL Phosphorus 3.5 (2.7-4.5) mg/dL Pituitary panel 10/30/17 Range/Units 05:02 Sodium 130 L (136-145) mEq/L Potassium 3.3 L (3.5-5.1) mEq/L Chloride 97 L (98-107) mEq/L Carbon Dioxide 25 (23-29) mEq/L BUN 13 (6-20) mg/dL Creatinine 0.59 L (0.70-1.30) mg/dL Glucose 127 H (70-105) mg/dL Calcium 7.9 L (8.6-10.3) mg/dL Adrenal panel 10/30/17 Range/Units 05:02 Sodium 130 L (136-145) mEq/L Potassium 3.3 L (3.5-5.1) mEq/L Chloride 97 L (98-107) mEq/L Carbon Dioxide 25 (23-29) mEq/L BUN 13 (6-20) mg/dL Creatinine 0.59 L (0.70-1.30) mg/dL Glucose 127 H (70-105) mg/dL Calcium 7.9 L (8.6-10.3) mg/dL - Attending Attestation I examined this patient and my medical decision-making was reviewed with the Resident Physician. I agree with the documented findings, disposition and treatment plan as described except to the extent set forth below. The patient is seen and evaluated on morning rounds with rest. The IR drain is draining clear serosanguineous fluid. Cultures are positive for gram-negative rods. He is on appropriate broad-spectrum antibiotic. He remains tachypneic. I personally reviewed his CAT scan. He has significant left lower lobe atelectasis versus pneumonia. I discussed his case with pulmonology and they will make a reevaluation tomorrow. His abdomen is completely benign there is no guarding no rebound and no tenderness. The patient is not complaining of any abdominal discomfort. I am concerned that he has persistent elevated leukocytosis and we will continue to follow him closely. Cornelio Caro MD FACS
[2017-10-29] MEDS ORDERED: Clinimix E 5%-20% SOLUTION 2,000 ML with MVI, adult with vitamin K 10 ML IVC SCH (17:00)
[2017-10-29] MEDS: dilTIAZem HCl 100 MG in D5% in Water 50 ML IVC SCH (20:22)
[2017-10-30] MEDS: dilTIAZem HCl 100 MG in D5% in Water 50 ML IVC SCH ×4 (00:46→20:10)
[2017-10-30] MEDS: Ipratropium/Albuterol Neb 3 ML IH SCH ×4 (04:20→21:46)
[2017-10-30] MEDS: Insulin LISPRO 300 UNITS/3 ML VIAL SQ SCH ×3 (05:04→18:23)
[2017-10-30] MEDS: Piperacillin/Tazobactam 3.375 GM/200 ML BAG IVPB SCH ×3 (05:04→20:09)
[2017-10-30] MEDS: *HR* Enoxaparin 40 MG/0.4 ML SYRINGE SQ SCH (05:05)
[2017-10-30 05:21] LABS: Basophils % 0.1 %; Eosinophils % 0.6 %; Mean Corpuscular Hemoglobin 31.1 pg (28.0-33.3); Red Blood Count 5.14 M/mcL (4.19-5.50)
[2017-10-30 05:22] LABS: Eosinophils # 0.2 K/mcL (0.0-0.6); Hematocrit 46.5 % (37.5-50.1); Immature Granulocytes % 12.1 % (0-4); Lymphocytes # 2.5 K/mcL (0.6-4.6); Lymphocytes % 6.5 %; Mean Corpuscular HGB Conc 34.4 g/dL (31.6-35.5); Mean Corpuscular Volume 90.5 fL (83.0-100.0); Mean Platelet Volume 8.9 fL (9.4-12.4); Monocytes # 2.3 K/mcL (0.0-1.3); Platelet Count 294 K/mcL (140-400); Red Cell Distribution Width 12.5 % (11.5-14.5); Segmented Neutrophils % 74.7 %
[2017-10-30 05:28] LABS: BUN/Creatinine Ratio 22 (6-26); Blood Urea Nitrogen 13 mg/dL (6-20); Calcium 7.9 mg/dL (8.6-10.3); Carbon Dioxide 25 mEq/L (23-29); Chloride 97 mEq/L (98-107); Glucose 127 mg/dL (70-105); Osmolality,Calculated 272 (280-300); Potassium 3.3 mEq/L (3.5-5.1); Sodium 130 mEq/L (136-145); eGFR For African Americans > 60 (> 60); eGFR For Non-African Americans > 60 (> 60)
[2017-10-30 05:29] LABS: Magnesium 1.9 mg/dL (1.6-2.6); Phosphorous 3.5 mg/dL (2.7-4.5)
[2017-10-30 05:32] LABS: Neutrophils # 28.2 K/mcL (1.6-8.9)
[2017-10-30 06:11] LABS: Platelet Estimate Normal (Normal); Reactive Lymphocytes Present (Not Present); Toxic Granulation Present (Not Present)
[2017-10-30] MEDS: Aspirin Enteric Coated 81 MG Tablet PO SCH (07:58)
[2017-10-30] MEDS: Levofloxacin 750 MG/150 ML 750 MG/150 ML BAG IVPB SCH (07:58)
[2017-10-30] MEDS: *HR* Metoprolol 5 MG/5 ML VIAL IVP PRN (07:59)
--- NOTE | 2017-10-30 09:39 | General Surgery Progress Note ---
<Kaur Ponce - Last Filed: 10/30/17 10:46> Date of Encounter: 10/30/17 Time of Encounter: 09:10 - Assessment and Plan (1) Diverticulitis of colon with perforation Current Visit: Yes Status: Acute Hinchey class II diverticulitis complicated by a.fib with RVR. S/p drainage of abscess by IR day 4. PICC line in place for access. Patient is stable and reports improvement of pain. WBC 37.8 increased from 33.4. patient is on appropriate antibiotics. continue to monitor continue soft diet continue levaquin and zosyn day 3 check CBC serial abdominal exams incentive spirometry q1h ambulation with assistance Qualifiers: Diverticulitis bleeding: without bleeding Qualified Code(s): K57.20 - Diverticulitis of large intestine with perforation and abscess without bleeding (2) Bronchitis Current Visit: Yes Status: Acute CXR showed worsening CHF with mild pulmonary edema and/ or superimposed pneumonia Pulmonology assessed the patient and believe the patient has atelectesis. Their recommendation is encourage incentive spirometry along with continuation of antibiotics since they are providing appropriate coverage. Also ordered is a ddimer and lactic acid. continue levaquin and zosyn continue incentive spirometry q1h pulmonology following hold IV fluids, continue lasix prn (3) Atrial fibrillation with RVR Current Visit: Yes Status: Acute history of A.fib that is currently rate controlled with cardizem and metoprolol Subjective Patient reports: no new complaints, feels better, tolerating a regular diet, voiding w/o difficulty, flatus, bowel movement, afebrile Narrative: No events over night and no new complaints Objective Vital Signs - Last 8 Hours Temp Pulse Resp BP Pulse Ox 10/30/17 08:19 91 10/30/17 06:47 98.3 F 135 18 138/88 94 10/30/17 05:00 97.8 F 114 20 136/103 91 10/30/17 04:20 18 91 10/30/17 01:48 98.1 F 125 142/97 Intake and Output 10/29/17 10/30/17 10/30/17 23:59 07:59 15:59 Intake Total 446.4 / 446.4 790.2 / 790.2 50 / 50 Output Total 0 / 0 2049 0 / 0 Balance 446.4 / 446.4 -1259.8 / -1259.8 50 / 50 Intake: IV Fluids 206.4 / 206.4 250.2 / 250.2 50 / 50 Cardizem 100 MG In Dextrose 5% 6.4 / 6.4 50.2 / 50.2 50 / 50 (ADD-[place]) 50 ML @ 2.5 MG/HR 1.25 mls/hr IVC .Q24H [facility] Rx#: [id number] Zosyn Premix 3.375 GM/200 ML 3. 200 / 200 200 / 200 375 gm In 200 ml @ 50 mls/hr IVPB Q8H [facility] Rx#:[id number] Oral 240 / 240 540 / 540 Output: Urine 2049 / 2049 Wound Drainage 0 / 0 0 / 0 0 / 0 Right Lower Lateral Back 0 / 0 0 / 0 0 / 0 Other: Meal Dinner Percent of Meal Consumed 65% Stool Size Moderate Stool Consistency loose soft Stool Color Brown # Voids 1 # Bowel Movements 3 Weight 108.5 kg Blood Glucose* 123 150 Patient Weight 10/30/17 23:59 Weight 108.5 kg - General physical appearance well developed, well nourished, no distress - Eyes normal ocular movement - Respiratory normal expansion, normal respiratory effort crackles: bilateral - Cardiovascular Cardiovascular exam: Present: RRR - Abdomen Abdomen: Present: bowel sounds present, soft, non tender - Integumentary no abnormal pigmentation - Neurologic CN 2-12 grossly intact - Psychiatric oriented to time, oriented to person, oriented to place - Labs 10/30/17 05:02 10/30/17 05:02 Diabetes panel 10/30/17 Range/Units 05:02 Sodium 130 L (136-145) mEq/L Potassium 3.3 L (3.5-5.1) mEq/L Chloride 97 L (98-107) mEq/L Carbon Dioxide 25 (23-29) mEq/L BUN 13 (6-20) mg/dL Creatinine 0.59 L (0.70-1.30) mg/dL Glucose 127 H (70-105) mg/dL Calcium 7.9 L (8.6-10.3) mg/dL Calcium panel 10/30/17 10/30/17 Range/Units 05:02 05:02 Calcium 7.9 L (8.6-10.3) mg/dL Phosphorus 3.5 (2.7-4.5) mg/dL Pituitary panel 10/30/17 Range/Units 05:02 Sodium 130 L (136-145) mEq/L Potassium 3.3 L (3.5-5.1) mEq/L Chloride 97 L (98-107) mEq/L Carbon Dioxide 25 (23-29) mEq/L BUN 13 (6-20) mg/dL Creatinine 0.59 L (0.70-1.30) mg/dL Glucose 127 H (70-105) mg/dL Calcium 7.9 L (8.6-10.3) mg/dL Adrenal panel 10/30/17 Range/Units 05:02 Sodium 130 L (136-145) mEq/L Potassium 3.3 L (3.5-5.1) mEq/L Chloride 97 L (98-107) mEq/L Carbon Dioxide 25 (23-29) mEq/L BUN 13 (6-20) mg/dL Creatinine 0.59 L (0.70-1.30) mg/dL Glucose 127 H (70-105) mg/dL Calcium 7.9 L (8.6-10.3) mg/dL Consult Discharge Plan - Plan Referrals: NONE,PCP [Primary Care Provider] - Jenise Dalal [Family Provider] - <Cornelio Caro - Last Filed: 10/30/17 14:44> Date of Encounter: 10/30/17 Objective Vital Signs - Last 8 Hours Temp Pulse Resp BP Pulse Ox 10/30/17 11:33 98.2 F 92 18 131/79 93 10/30/17 10:13 18 91 10/30/17 08:19 91 10/30/17 06:47 98.3 F 135 18 138/88 94 Intake and Output 10/29/17 10/30/17 10/30/17 23:59 07:59 15:59 Intake Total 446.4 / 446.4 790.2 / 790.2 401.9 / 401.9 Output Total 0 / 0 2049 0 / 0 Balance 446.4 / 446.4 -1259.8 / -1259.8 401.9 / 401.9 Intake: IV Fluids 206.4 / 206.4 250.2 / 250.2 281.9 / 281.9 Cardizem 100 MG In Dextrose 5% 6.4 / 6.4 50.2 / 50.2 81.9 / 81.9 (ADD-[place]) 50 ML @ 2.5 MG/HR 1.25 mls/hr IVC .Q24H [facility] Rx#: [id number] Zosyn Premix 3.375 GM/200 ML 3. 200 / 200 200 / 200 200 / 200 375 gm In 200 ml @ 50 mls/hr IVPB Q8H [facility] Rx#:[id number] Oral 240 / 240 540 / 540 120 / 120 Output: Urine 2049 / 2049 Wound Drainage 0 / 0 0 / 0 0 / 0 Right Lower Lateral Back 0 / 0 0 / 0 0 / 0 Other: Meal Dinner Breakfast Percent of Meal Consumed 65% 5% Stool Size Moderate Stool Consistency loose soft Stool Color Brown # Voids 1 # Bowel Movements 3 Weight 108.5 kg Blood Glucose* 123 150 140 Patient Weight 10/30/17 23:59 Weight 108.5 kg - Labs 10/30/17 10:52 10/30/17 05:02 Diabetes panel 10/30/17 Range/Units 05:02 Sodium 130 L (136-145) mEq/L Potassium 3.3 L (3.5-5.1) mEq/L Chloride 97 L (98-107) mEq/L Carbon Dioxide 25 (23-29) mEq/L BUN 13 (6-20) mg/dL Creatinine 0.59 L (0.70-1.30) mg/dL Glucose 127 H (70-105) mg/dL Calcium 7.9 L (8.6-10.3) mg/dL Calcium panel 10/30/17 10/30/17 Range/Units 05:02 05:02 Calcium 7.9 L (8.6-10.3) mg/dL Phosphorus 3.5 (2.7-4.5) mg/dL Pituitary panel 10/30/17 Range/Units 05:02 Sodium 130 L (136-145) mEq/L Potassium 3.3 L (3.5-5.1) mEq/L Chloride 97 L (98-107) mEq/L Carbon Dioxide 25 (23-29) mEq/L BUN 13 (6-20) mg/dL Creatinine 0.59 L (0.70-1.30) mg/dL Glucose 127 H (70-105) mg/dL Calcium 7.9 L (8.6-10.3) mg/dL Adrenal panel 10/30/17 Range/Units 05:02 Sodium 130 L (136-145) mEq/L Potassium 3.3 L (3.5-5.1) mEq/L Chloride 97 L (98-107) mEq/L Carbon Dioxide 25 (23-29) mEq/L BUN 13 (6-20) mg/dL Creatinine 0.59 L (0.70-1.30) mg/dL Glucose 127 H (70-105) mg/dL Calcium 7.9 L (8.6-10.3) mg/dL - Attending Attestation I examined this patient and my medical decision-making was reviewed with the Resident Physician. I agree with the documented findings, disposition and treatment plan as described except to the extent set forth below. The patient is seen and evaluated with resident the morning. The patient has absolutely no abdominal pain. His abdominal examination is totally negative. He does have tachypnea. She also has some lower left chest pain. His white blood cell count is very elevated in the high 30s. I had a discussion with pulmonology. They feel that endoscopy is not indicated and that he is on appropriate antibiotics. His white blood cell count elevated again into the low 40s. He will be reevaluated on a regular basis. We will continue to work with the pulmonary and critical care consultants to maximize his care. Cornelio Caro MD FACS
[2017-10-30] MEDS ORDERED: *HR* Heparin 5,000 UNIT/ML VIAL IVP PRN (09:53)
[2017-10-30] MEDS ORDERED: *HR* Heparin 5,000 UNIT/ML VIAL IVP ONE (09:53)
--- NOTE | 2017-10-30 09:57 | Cardiology Progress Note ---
Date of Encounter: 10/30/17 Time of Encounter: 08:30 Assessment and Plan (1) Atrial fibrillation with RVR Current Visit: Yes Status: Acute New onset atrial fibrillation with RVR during stay. Initially controlled with IV cardizem and transitioned to oral. IV lopressor started for breakthrough afib with RVR. HR increasing to the 120-140 overnight. IV cardizem restarted. Currently being treated for PNA and diastolic CHF. D-dimer checked this morning d/t persistent tachycardia and found to be elevated into the 15,000. Start heparin gtt and check CTA to r/o PE. TTE showed LVEF 60-65%. Normal LV chamber size and function. Mild to moderate concentric left ventricular hypertrophy. Indeterminate diastolic function. Normal right ventricular structure and function. Moderately dilated left atrium. No significant valvular dysfunction. No evidence of pulmonary hypertension. Continue cardizem gtt. Titrate to keep HR 100 bpm or less. Start metoprolol. CHADS VASC=1 for HTN. Initially started on asa for AC. Concern for PE. Heparin gtt started. (2) CHF (congestive heart failure) Current Visit: Yes Status: Acute Fluid overload. I&O show he is positive 9 liters of fluid. CXR yesterday shows worsening CHF. BNP 232. CHF with preserved EF. Give IV lasix. Low sodium diet. Strict I&O and daily weights. Qualifiers: Congestive heart failure type: diastolic Congestive heart failure chronicity: acute Qualified Code(s): I50.31 - Acute diastolic (congestive) heart failure (3) SOB (shortness of breath) Current Visit: Yes Status: Acute Multifactoral in the setting of bronchitis, PNA, CHF. D-dimer elevated. Check CTA to r/o PE. Discussion w patient/family: The assessment and plan as outlined above was discussed with the patient and/or family members who expressed understanding and agreement. All questions were answered. Thank you for involving us in the care of your patient. Please call with any questions. Subjective Principal diagnosis: atrial fibrillation with RVR Interval history: Cardiology called back for recurrent atrial fibrillation with RVR despite IV lopressor. Reports SOB somewhat improved today from yesterday. He is being treated for pneumonia and CHF. Objective Vital Signs, Last 4 Hours Temp Pulse Resp BP Pulse Ox 10/30/17 08:19 91 10/30/17 06:47 98.3 F 135 18 138/88 94 General: Conversant, No Apparent Distress HEENT: Atraumatic, Normocephaly, Mucus Membranes Moist Neck: No JVD, Normal carotid pulses Cardiac: Other (Irregularly irregular) Lungs: Other (Respirations easy currently at rest. Dyspnea noted with conversation. Poor airmovement in the LLL. Faint rhonci scattered throughout. ) Neuro: Alert and responsive, No focal deficits noted Abdomen: Soft, Non-Tender Skin: No rashes noted on visualized skin Musculoskeletal: No Chest Wall Tenderness Extremities: Other (Trace edema in ankles noted) Results 10/30/17 05:02 10/30/17 05:02 Lab Results 10/30/17 10/30/17 10/30/17 05:02 05:02 05:02 WBC 37.8 H* Hgb 16.0 Hct 46.5 Plt Count 294 D-Dimer Sodium 130 L Potassium 3.3 L Chloride 97 L Carbon Dioxide 25 BUN 13 Creatinine 0.59 L Glucose 127 H Calcium 7.9 L Magnesium 1.9 10/30/17 08:50 WBC Hgb Hct Plt Count D-Dimer 50532 H Sodium Potassium Chloride Carbon Dioxide BUN Creatinine Glucose Calcium Magnesium - Imaging and Cardiology Echo: report reviewed Consult Discharge Plan - Plan Referrals: NONE,PCP [Primary Care Provider] - Jenise Dalal [Family Provider] -
[2017-10-30 11:01] LABS: Hematocrit 45.1 % (37.5-50.1); Hemoglobin 15.4 g/dL (12.9-16.9); Mean Corpuscular HGB Conc 34.1 g/dL (31.6-35.5); Mean Corpuscular Hemoglobin 30.9 pg (28.0-33.3); Mean Corpuscular Volume 90.4 fL (83.0-100.0); Platelet Count 327 K/mcL (140-400); Red Blood Count 4.99 M/mcL (4.19-5.50); Red Cell Distribution Width 12.6 % (11.5-14.5)
[2017-10-30 11:06] LABS: INR 1.3; Prothrombin Time 14.1 Seconds (9.4-12.1)
[2017-10-30 11:09] LABS: Activated Partial Thrombo Time 24.7 Seconds (26.0-36.0)
--- NOTE | 2017-10-30 12:46 | Pulmonology Consult Note ---
Date of Encounter: 10/30/17 Time of Encounter: 08:30 Assessment and Plan (1) Acute respiratory failure with hypoxia Current Visit: Yes Status: Acute This is most likely from compressive atelectasis and clinically patient is feeling much better and continue incentive spirometry with broad-spectrum antibiotics. Mobilization and physical therapy is extremely important. (2) Compression atelectasis Current Visit: Yes Status: Acute This is most likely from patient has had abdominal pain and atelectasis from pain as well as bilateral pleural effusion. Pneumonia cannot be completely ruled out, however patient is on broad-spectrum antibiotics. Incentive spirometry and diuresis. (3) Bilateral pleural effusion Current Visit: Yes Status: Acute Patient is on anticoagulation and diuresis is appropriate at this time, if no improvement and hypoxia then ecommend thoracentesis (4) Leukocytosis, unspecified Current Visit: Yes Status: Acute This is nonspecific and it could be reactive since lactic acid is normal and clinically patient feels much better. Patient is on broad-spectrum antibiotics. Follow-up on the cultures and sensitivity. Discussed with Dr. Caro and thank you very much for consultation we will follow-up. Qualifiers: Leukocytosis type: unspecified Qualified Code(s): D72.829 - Elevated white blood cell count, unspecified History of Present Illness Consult date: 10/30/17 Requesting physician: Cornelio Caro Reason for consult: pneumonia, pleural effusion Chief complaint: Abdominal pain History of present illness: This is a pleasant 42-year-old gentleman who presented with severe abdominal pain and nausea with vomiting and he was diagnosed with diverticulitis with perforation and he was admitted for surgery. I saw this patient on October 27 when he was in 3A and he was transferred to [facility]. today seeing patient clinically he feels much better and he looks better. He had a CT chest with evidence of pleural effusion and compressive atelectasis and also has leukocytosis and pulmonary officially consulted. He should not have shortness of breath which is getting better and he has some cough with no significant sputum production. Patient also was found to have atrial fibrillation but denies any chest pain or hemoptysis. Otherwise patient has no significant underlying lung disease. Past Med Surg Social Fam HX - Past Medical History Medical history: no medical history Psychiatric history: no psych history - Past Surgical History Surgical History: no surgical history - Social History Smoking Status: Current every day smoker Packs per day: 1pk Smokeless Tobacco Status: No Alcohol use: heavy Drug use: none Medications and Allergies No Known Home Drugs 10/24/17 [History] 3 Allergy/AdvReac Type Severity Reaction Status Date / Time No Known Allergies Allergy Verified 10/24/17 09:31 All Systems: A 10-system review of systems was performed and is negative for pertinent findings except as documented above in the HPI. Physical Examination Vital Signs: Vital Signs, Last 4 Hours Temp Pulse Resp BP Pulse Ox 10/30/17 11:33 98.2 F 92 18 131/79 93 10/30/17 10:13 18 91 General appearance: no acute distress Eyes: nonicteric ENT: oropharynx moist Mallampati (class): 2 Neck: supple, no lymphadenopathy Effort: normal Inspection: normal Auscultation: bilateral: diminished breath sounds (Right more than left) Percussion: bilateral: dull Cardiovascular: irregular rhythm Gastrointestinal: hypoactive bowel sounds, soft Extremities: no cyanosis, no edema normal mental status, non-focal exam mood appropriate Results - Laboratory Findings CBC and BMP: 10/30/17 10:52 10/30/17 05:02 PT/INR, D-dimer PT 14.1 Seconds (9.4-12.1) H 10/30/17 10:52 D-Dimer 71501 ng/mLFEU (0-500) H 10/30/17 08:50 Abnormal lab findings: Abnormal lab results WBC 42.2 K/mcL (4.3-11.1) H* 10/30/17 10:52 MPV 9.0 fL (9.4-12.4) L 10/30/17 10:52 Immature Gran % 12.1 % (0-4) H 10/30/17 05:02 Band Neutrophils % 34.0 % (0-4) H 10/27/17 04:16 Metamyelocytes % 4.0 % (0) H 10/26/17 06:54 Neutrophils # 28.2 K/mcL (1.6-8.9) H 10/30/17 05:02 Monocytes # 2.3 K/mcL (0.0-1.3) H 10/30/17 05:02 Nucleated RBCs/100 WBC 0.1 /100 WBC (0) H 10/24/17 09:47 Reactive Lymphocytes Present (Not Present) A 10/30/17 05:02 Toxic Granulation Present (Not Present) A 10/30/17 05:02 Large Platelets Present (Not Present) A 10/29/17 04:57 PT 14.1 Seconds (9.4-12.1) H 10/30/17 10:52 APTT 24.7 Seconds (26.0-36.0) L 10/30/17 10:52 D-Dimer 10951 ng/mLFEU (0-500) H 10/30/17 08:50 Sodium 130 mEq/L (136-145) L 10/30/17 05:02 Potassium 3.3 mEq/L (3.5-5.1) L 10/30/17 05:02 Chloride 97 mEq/L (98-107) L 10/30/17 05:02 Creatinine 0.59 mg/dL (0.70-1.30) L 10/30/17 05:02 Glucose 127 mg/dL (70-105) H 10/30/17 05:02 POC Glucose 150 (58-89) H 10/30/17 04:58 Calculated Osmolality 272 (280-300) L 10/30/17 05:02 Calcium 7.9 mg/dL (8.6-10.3) L 10/30/17 05:02 B-Natriuretic Peptide 251 pg/mL (Less than 100) H 10/28/17 04:25 Prealbumin 6.4 mg/dL (17.0-34.0) L 10/27/17 10:46 Triglycerides 232 mg/dL (< 150) H 10/27/17 10:46 Urine Clarity Cloudy (Clear) A 10/24/17 10:57 Ur Specific [place] > 1.030 (1.010-1.025) H 10/24/17 10:57 Urine Protein 30 mg/dL (Neg-Trace) H 10/24/17 10:57 Urine Ketones 15 mg/dL (Negative) H 10/24/17 10:57 Urine Bilirubin Small (Negative) H 10/24/17 10:57 Ur Squamous Epith Cells Many per lpf (None-Few) H 10/24/17 10:57 Granular Casts Few per lpf (None Seen) H 10/24/17 10:57 - Microbiology Findings Microbiology Findings: Microbiology, Last 48 Hours 10/27/17 22:32 Anaerobic Culture - Preliminary Aspirate At this time, no anaerobic growth is present. The culture will be finalized after 5 days of incubation. 10/27/17 22:32 Body Fluid Culture - Preliminary Other-Specify in Comments Escherichia coli Gram Positive Cocci 10/27/17 14:18 Blood Culture - Preliminary Peripheral Venipuncture No growth. 10/27/17 15:42 Blood Culture - Preliminary Peripheral Venipuncture No growth. - Diagnostic Findings CT scan - chest: report reviewed, image reviewed - Clinical Findings Intake & Output: Intake & Output 10/29/17 10/30/17 10/30/17 23:59 07:59 15:59 Intake Total 446.4 / 446.4 790.2 / 790.2 170 / 170 Output Total 0 / 0 2049 / 2049 0 / 0 Balance 446.4 / 446.4 -1259.8 / -1259.8 170 / 170 Weight 108.5 kg Consult Discharge Plan - Plan Referrals: NONE,PCP [Primary Care Provider] - Jenise Dalal [Family Provider] -
[2017-10-30] MEDS: Furosemide 40 MG/4 ML VIAL IVP SCH ×2 (13:46→18:23)
[2017-10-30] MEDS: Heparin 25,000 UNIT/500 ML D5W 25,000 UNIT/500 ML BAG IVC SCH (14:20)
[2017-10-30] MEDS ORDERED: Clinimix E 5%-20% SOLUTION 2,000 ML with MVI, adult with vitamin K 10 ML IVC SCH (17:00)
[2017-10-30] MEDS: *HR* Heparin 5,000 UNIT/ML VIAL IVP PRN (23:18)
[2017-10-31] MEDS: Insulin LISPRO 300 UNITS/3 ML VIAL SQ SCH ×5 (01:55→23:49)
[2017-10-31] MEDS: Ipratropium/Albuterol Neb 3 ML IH SCH ×4 (03:51→21:29)
[2017-10-31] MEDS: Heparin 25,000 UNIT/500 ML D5W 25,000 UNIT/500 ML BAG IVC SCH (05:07)
[2017-10-31] MEDS: Piperacillin/Tazobactam 3.375 GM/200 ML BAG IVPB SCH ×3 (05:07→20:45)
[2017-10-31] MEDS: *HR* Enoxaparin 40 MG/0.4 ML SYRINGE SQ SCH (05:08)
[2017-10-31] MEDS: dilTIAZem HCl 100 MG in D5% in Water 50 ML IVC SCH (05:19)
[2017-10-31 05:39] LABS: Hemoglobin 15.3 g/dL (12.9-16.9); Mean Corpuscular Hemoglobin 30.5 pg (28.0-33.3); Mean Corpuscular Volume 89.8 fL (83.0-100.0); Mean Platelet Volume 9.1 fL (9.4-12.4); Platelet Count 362 K/mcL (140-400); Red Blood Count 5.01 M/mcL (4.19-5.50); Red Cell Distribution Width 12.6 % (11.5-14.5)
[2017-10-31 05:50] LABS: BUN/Creatinine Ratio 25 (6-26); Blood Urea Nitrogen 14 mg/dL (6-20); Calcium 7.8 mg/dL (8.6-10.3); Carbon Dioxide 29 mEq/L (23-29); Chloride 95 mEq/L (98-107); Glucose 144 mg/dL (70-105); Magnesium 1.9 mg/dL (1.6-2.6); Osmolality,Calculated 269 (280-300); Phosphorous 3.4 mg/dL (2.7-4.5); Potassium 3.4 mEq/L (3.5-5.1); Sodium 128 mEq/L (136-145); eGFR For African Americans > 60 (> 60); eGFR For Non-African Americans > 60 (> 60)
[2017-10-31 06:20] LABS: Neutrophils # 24.7 K/mcL (1.6-8.9); Platelet Estimate Normal (Normal)
[2017-10-31] MEDS: *HR* Heparin 5,000 UNIT/ML VIAL IVP PRN (06:34)
[2017-10-31] MEDS: Levofloxacin 750 MG/150 ML 750 MG/150 ML BAG IVPB SCH (08:25)
[2017-10-31] MEDS: Furosemide 40 MG/4 ML VIAL IVP SCH ×2 (08:25→23:49)
[2017-10-31] MEDS: Aspirin Enteric Coated 81 MG Tablet PO SCH (08:25)
--- NOTE | 2017-10-31 09:42 | General Surgery Progress Note ---
Date of Encounter: 10/31/17 Time of Encounter: 09:40 - Assessment and Plan (1) Diverticulitis of colon with perforation Current Visit: Yes Status: Acute 42M with hinchey class II diverticulitis complicated by afib with RVR now s/p drainage of abscess by IR; wbc still elevated despite feeling better and being afebrile - CT scan today; assess for undrained collection; possible OR tomorrow for lap peritoneal lavage; - cont CLD today; possible advance to soft diet - wean cardizem per cardiology - cont abx - trend WBC; can plan for PO abx and discharge once normal for 24hrs - will begin to wean TPN once diet is advanced Qualifiers: Diverticulitis bleeding: without bleeding Qualified Code(s): K57.20 - Diverticulitis of large intestine with perforation and abscess without bleeding Subjective Patient reports: no new complaints, feels better, tolerating liquids well, voiding w/o difficulty, flatus, bowel movement, shortness of breath, afebrile, other (reports no pain) Objective Vital Signs - Last 8 Hours Temp Pulse Resp BP Pulse Ox 10/31/17 06:48 97.7 F 110 14 134/75 94 10/31/17 05:37 97.8 F 106 22 130/90 94 10/31/17 03:51 16 93 Intake and Output 10/30/17 10/31/17 10/31/17 23:59 07:59 15:59 Intake Total 524 / 524 3460 / 3460 Output Total 1750 / 1750 2300 / 2300 Balance -1226 / -1226 1160 / 1160 Intake: IV Fluids 524 / 524 530 / 530 Heparin 25,000 UNIT/500 ML D5W 274 / 274 280 / 280 25,000 unit In 500 ml @ 14 UNIT /KG/HR 30.38 mls/hr IVC . [id number] [facility] Rx#:[id number] Cardizem 100 MG In Dextrose 5% 50 / 50 50 / 50 (ADD-[place]) 50 ML @ 2.5 MG/HR 1.25 mls/hr IVC .Q24H [facility] Rx#: [id number] Zosyn Premix 3.375 GM/200 ML 3. 200 / 200 200 / 200 375 gm In 200 ml @ 50 mls/hr IVPB Q8H [facility] Rx#:[id number] Oral 1400 / 1400 Intake, Autotransfusion Amount 1530 / 1530 Output: Urine 1750 / 1750 2300 / 2300 Wound Drainage 0 / 0 Right Lower Lateral Back 0 / 0 Other: # Voids 2 Weight 110.9 kg Blood Glucose* 136 134 Patient Weight 10/31/17 23:59 Weight 110.9 kg - General physical appearance well developed, no distress - ENT normocephalic - Respiratory normal expansion, normal respiratory effort - Cardiovascular Cardiovascular exam: Present: RRR - Abdomen Abdomen: Present: soft, non tender - Neurologic CN 2-12 grossly intact - Psychiatric oriented to time, oriented to person, oriented to place - Labs 10/31/17 05:23 10/31/17 05:23 Diabetes panel 10/31/17 Range/Units 05:23 Sodium 128 L (136-145) mEq/L Potassium 3.4 L (3.5-5.1) mEq/L Chloride 95 L (98-107) mEq/L Carbon Dioxide 29 (23-29) mEq/L BUN 14 (6-20) mg/dL Creatinine 0.57 L (0.70-1.30) mg/dL Glucose 144 H (70-105) mg/dL Calcium 7.8 L (8.6-10.3) mg/dL Calcium panel 10/31/17 Range/Units 05:23 Calcium 7.8 L (8.6-10.3) mg/dL Phosphorus 3.4 (2.7-4.5) mg/dL Pituitary panel 10/31/17 Range/Units 05:23 Sodium 128 L (136-145) mEq/L Potassium 3.4 L (3.5-5.1) mEq/L Chloride 95 L (98-107) mEq/L Carbon Dioxide 29 (23-29) mEq/L BUN 14 (6-20) mg/dL Creatinine 0.57 L (0.70-1.30) mg/dL Glucose 144 H (70-105) mg/dL Calcium 7.8 L (8.6-10.3) mg/dL Adrenal panel 10/31/17 Range/Units 05:23 Sodium 128 L (136-145) mEq/L Potassium 3.4 L (3.5-5.1) mEq/L Chloride 95 L (98-107) mEq/L Carbon Dioxide 29 (23-29) mEq/L BUN 14 (6-20) mg/dL Creatinine 0.57 L (0.70-1.30) mg/dL Glucose 144 H (70-105) mg/dL Calcium 7.8 L (8.6-10.3) mg/dL Consult Discharge Plan - Plan Referrals: NONE,PCP [Primary Care Provider] - Jenise Dalal [Family Provider] -
--- NOTE | 2017-10-31 09:46 | Pulmonology Progress Note ---
Date of Encounter: 10/31/17 Time of Encounter: 09:30 Assessment and Plan (1) Acute respiratory failure with hypoxia Current Visit: Yes Status: Acute Patient reason for V/Q mismatch is bilateral pleural effusion with compressive atelectasis , this atelectasis is secondary to pleural effusion and splinting of diaphragm , now slowly getting better will do incentive spirometry for now to wean O2 as tolerated , very low probability this atelectasis caused by pneumonia. (2) Compression atelectasis Current Visit: Yes Status: Acute Atelectasis mainly due to bilateral pleural effusion and splinting of diaphragm to continue incentive spirometry very low probability airspace disease to continue broad spectrum antibiotics for now . (3) Bilateral pleural effusion Current Visit: Yes Status: Acute Bilateral pleural effusion with elevated BNP and ECHO shows dilated left atrium points towards exacerbation of diastolic heart failure rather parapneumonic effusion patient is 9 liter positive will continue diuresis according to cardiology . Subjective Principal diagnosis: atrial fibrillation with RVR Interval history: Patient came with abdominal pain found to be in diverticular perforation leading to abscess which was drained , having persistent leukocytosis pulmonary was consulted whether leukocytosis is due to pneumonia or not . Patient today is doing well , no cough and sputum production , denies any chest pain or abdominal pain , patient is getting repeat CT abdomen and pelvis today . Objective PUL Vital signs: Last Vital Signs Temp 97.7 F 10/31/17 06:48 Pulse 110 10/31/17 06:48 Resp 14 10/31/17 06:48 BP 134/75 10/31/17 06:48 Pulse Ox 94 10/31/17 06:48 Auscultation: bilateral: diminished breath sounds, other (bilateral bibasilar crackles ) Gastrointestinal: soft, non-tender Results - Laboratory Findings CBC and BMP: 10/31/17 05:23 10/31/17 05:23 PT/INR, D-dimer PT 14.1 Seconds (9.4-12.1) H 10/30/17 10:52 D-Dimer 19313 ng/mLFEU (0-500) H 10/30/17 08:50 Abnormal lab findings: Abnormal lab results WBC 38.6 K/mcL (4.3-11.1) H* 10/31/17 05:23 MPV 9.1 fL (9.4-12.4) L 10/31/17 05:23 Immature Gran % 12.1 % (0-4) H 10/30/17 05:02 Band Neutrophils % 16.0 % (0-4) H 10/31/17 05:23 Metamyelocytes % 4.0 % (0) H 10/26/17 06:54 Neutrophils # 24.7 K/mcL (1.6-8.9) H 10/31/17 05:23 Lymphocytes # 7.0 K/mcL (0.6-4.6) H 10/31/17 05:23 Monocytes # 7.0 K/mcL (0.0-1.3) H 10/31/17 05:23 Nucleated RBCs/100 WBC 0.1 /100 WBC (0) H 10/24/17 09:47 Reactive Lymphocytes Present (Not Present) A 10/30/17 05:02 Toxic Granulation Present (Not Present) A 10/30/17 05:02 Large Platelets Present (Not Present) A 10/29/17 04:57 PT 14.1 Seconds (9.4-12.1) H 10/30/17 10:52 APTT 38.4 Seconds (26.0-36.0) H 10/31/17 05:23 D-Dimer 77651 ng/mLFEU (0-500) H 10/30/17 08:50 Sodium 128 mEq/L (136-145) L 10/31/17 05:23 Potassium 3.4 mEq/L (3.5-5.1) L 10/31/17 05:23 Chloride 95 mEq/L (98-107) L 10/31/17 05:23 Creatinine 0.57 mg/dL (0.70-1.30) L 10/31/17 05:23 Glucose 144 mg/dL (70-105) H 10/31/17 05:23 POC Glucose 134 (58-89) H 10/31/17 04:56 Calculated Osmolality 269 (280-300) L 10/31/17 05:23 Calcium 7.8 mg/dL (8.6-10.3) L 10/31/17 05:23 B-Natriuretic Peptide 251 pg/mL (Less than 100) H 10/28/17 04:25 Prealbumin 11.2 mg/dL (17.0-34.0) L 10/31/17 05:23 Triglycerides 232 mg/dL (< 150) H 10/27/17 10:46 Urine Clarity Cloudy (Clear) A 10/24/17 10:57 Ur Specific [place] > 1.030 (1.010-1.025) H 10/24/17 10:57 Urine Protein 30 mg/dL (Neg-Trace) H 10/24/17 10:57 Urine Ketones 15 mg/dL (Negative) H 10/24/17 10:57 Urine Bilirubin Small (Negative) H 10/24/17 10:57 Ur Squamous Epith Cells Many per lpf (None-Few) H 10/24/17 10:57 Granular Casts Few per lpf (None Seen) H 10/24/17 10:57 - Microbiology Findings Microbiology Findings: Microbiology, Last 48 Hours 10/27/17 22:32 Body Fluid Culture - Preliminary Other-Specify in Comments Escherichia coli Streptococcus anginosus 10/27/17 22:32 Anaerobic Culture - Preliminary Aspirate At this time, no anaerobic growth is present. The culture will be finalized after 5 days of incubation. 10/27/17 14:18 Blood Culture - Preliminary Peripheral Venipuncture No growth. 10/27/17 15:42 Blood Culture - Preliminary Peripheral Venipuncture No growth. - Clinical Findings Intake & Output: Intake & Output 10/30/17 10/31/17 10/31/17 23:59 07:59 15:59 Intake Total 524 / 524 3460 / 3460 360 / 360 Output Total 1750 / 1750 2300 / 2300 Balance -1226 / -1226 1160 / 1160 360 / 360 Weight 110.9 kg Consult Discharge Plan - Plan Referrals: NONE,PCP [Primary Care Provider] - Jenise Dalal [Family Provider] -
[2017-10-31] MEDS ORDERED: Potassium Chloride 40 MEQ, Lidocaine 1% 2 ML in D5% in Water 500 ML IVPB ONE (10:07)
--- NOTE | 2017-10-31 10:35 | Electrocardiograph Report ---
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
--- NOTE | 2017-10-31 11:13 | Cardiology Progress Note ---
Date of Encounter: 10/31/17 Time of Encounter: 09:30 Assessment and Plan (1) Atrial fibrillation with RVR Current Visit: Yes Status: Acute New onset atrial fibrillation with RVR during stay in the setting of diverticulitis with perforation and abdominal abcess. On cardizem gtt. Converted to sinus tachycardia overnight. Check EKG. Convert back to oral cardizem 300 mg daily today. Continue oral lopressor and IV lopressor as needed. TTE showed LVEF 60-65%. Normal LV chamber size and function. Mild to moderate concentric left ventricular hypertrophy. Indeterminate diastolic function. Normal right ventricular structure and function. Moderately dilated left atrium. No significant valvular dysfunction. No evidence of pulmonary hypertension. CTA chest was negative for PE. CHADS VASC=1 for HTN. Initially started on asa for AC. Concern for PE. Heparin gtt started. CTA negative. Discussed with augustin Bolden to continue asa. Stop heparin gtt and restart DVT prophylaxis. Please call with questions. Out-patient f/u was scheduled with [facility]. (2) CHF (congestive heart failure) Current Visit: Yes Status: Acute Fluid overload/ bilateral pleural effusion likely due to IV fluid, afib with RVR , and DCHF. I&O show he is positive 9 liters of fluid yesterday. CXR showed worsening CHF. BNP 232. CHF with preserved EF. Given IV lasix and improving. Negative 2L for 24 hours. Continue IV lasix as needed during stay. Replace potassium as needed. Low sodium diet. Strict I&O and daily weights. Qualifiers: Congestive heart failure type: diastolic Congestive heart failure chronicity: acute Qualified Code(s): I50.31 - Acute diastolic (congestive) heart failure (3) SOB (shortness of breath) Current Visit: Yes Status: Acute Multifactoral in the setting of bronchitis, atelectasis, CHF. D-dimer elevated. CTA chest negative for PE. Discussion w patient/family: The assessment and plan as outlined above was discussed with the patient and/or family members who expressed understanding and agreement. All questions were answered. Thank you for involving us in the care of your patient. Please call with any questions. Subjective Principal diagnosis: atrial fibrillation with RVR Interval history: Patient reports significant improvement in symptoms. SOB improved. Converted to sinus tachycardia overnight. Objective General: Conversant, No Apparent Distress HEENT: Atraumatic, Normocephaly, Mucus Membranes Moist Neck: No JVD, Normal carotid pulses Cardiac: Reg Rate and Rhythm, Normal S1 and S2, No Murmur, Other (sinus tachycardia) Lungs: Normal Breath Sounds, No Wheeze, Rales, Rhonchi Neuro: Alert and responsive, No focal deficits noted Abdomen: Soft, Non-Tender Skin: No rashes noted on visualized skin Musculoskeletal: No Chest Wall Tenderness Extremities: No Clubbing, No Cyanosis, No Edema, Normal Pulses Results 10/31/17 05:23 10/31/17 05:23 Lab Results 10/30/17 10/30/17 10/30/17 10:52 10:52 22:40 WBC 42.2 H* Hgb 15.4 Hct 45.1 Plt Count 327 INR 1.3 APTT 24.7 L 34.6 Sodium Potassium Chloride Carbon Dioxide BUN Creatinine Glucose Calcium Magnesium 10/31/17 10/31/17 10/31/17 05:23 05:23 05:23 WBC 38.6 H* Hgb 15.3 Hct 45.0 Plt Count 362 INR APTT 38.4 H Sodium 128 L Potassium 3.4 L Chloride 95 L Carbon Dioxide 29 BUN 14 Creatinine 0.57 L Glucose 144 H Calcium 7.8 L Magnesium 1.9 - Imaging and Cardiology Echo: report reviewed - EKG Interpretation EKG results cardiology: personally reviewed Consult Discharge Plan - Plan Referrals: NONE,PCP [Primary Care Provider] - Jenise Dalal [Family Provider] -
[2017-10-31] MEDS: Diltiazem CD (24hr) 300 MG CAPSULE PO SCH (11:50)
[2017-10-31] MEDS ORDERED: Furosemide 20 MG/2 ML VIAL IVP ONE (16:13)
[2017-10-31] MEDS ORDERED: MVI IVC SCH ×2 (17:00)
[2017-10-31] MEDS ORDERED: [UNRECOGNIZED DRUG - OTHER] IVC SCH ×2 (17:00)
[2017-10-31] MEDS ORDERED: VITAMIN K IVC SCH ×2 (17:00)
[2017-10-31] MEDS ORDERED: CLINIMIX E IVC SCH ×2 (17:00)
[2017-10-31] MEDS: Vancomycin 1,500 MG in D5% in Water 250 ML IVPB SCH (17:03)
--- NOTE | 2017-10-31 20:14 | Anesthesia Evaluation PreOp ---
Date of Encounter: 10/31/17 Time of Encounter: 20:13 - Past History Planned Operation: Dx Lap Cardiac History: Arrhythmia (AFib, with episodes of RVR this hospitalization), Other (ECHO 10/28/2017) Pulmonary History: Smoker Other Medical History: Other (Diverticulitis w/ perforation & abcess) Anesthesia History: Past Anesthesia (Dental/[place] tooth surgery, Dx Lap w/ intraabdominal washout on 10/27/2017) Alcohol Use: heavy Drug use: none Medications and Allergies No Known Home Drugs 10/24/17 [History] 3 Allergy/AdvReac Type Severity Reaction Status Date / Time No Known Allergies Allergy Verified 10/24/17 09:31 - Meds/Allergy Pre-op Review Medications Reviewed: Yes Allergies Reviewed: Yes Beta Blockers on Current Med List: No Anesthesia Results - Labs 10/31/17 05:23 10/31/17 05:23 Anesthesia Exam Vital Signs Temp Pulse Resp BP Pulse Ox 10/31/17 20:02 98.7 F 111 19 129/77 92 10/31/17 16:35 14 95 10/31/17 16:20 97.5 F L 108 14 150/84 95 10/31/17 11:50 14 98 10/31/17 11:21 97.5 F L 88 14 153/75 98 10/31/17 06:48 97.7 F 110 14 134/75 94 10/31/17 05:37 97.8 F 106 22 130/90 94 10/31/17 03:51 16 93 10/30/17 23:30 98.3 F 10/30/17 21:46 16 93 Intake and Output 10/31/17 10/31/17 10/31/17 07:59 15:59 23:59 Intake Total 3460 / 3460 710 / 710 Output Total 2300 / 2300 0 / 0 2049 Balance 1160 / 1160 710 / 710 -2049 / -2049 Intake: IV Fluids 530 / 530 350 / 350 Heparin 25,000 UNIT/500 ML D5W 280 / 280 25,000 unit In 500 ml @ 14 UNIT /KG/HR 30.38 mls/hr IVC . [id number] [facility] Rx#:[id number] Cardizem 100 MG In Dextrose 5% 50 / 50 (ADD-[place]) 50 ML @ 2.5 MG/HR 1.25 mls/hr IVC .Q24H REJI Rx#: [id number] Levaquin Premix 750mg/150 mL 150 / 150 750 mg In 150 ml @ 100 mls/hr IVPB DAILY REJI Rx#:[id number] Zosyn Premix 3.375 GM/200 ML 3. 200 / 200 200 / 200 375 gm In 200 ml @ 50 mls/hr IVPB Q8H REJI Rx#:[id number] Oral 1400 / 1400 360 / 360 Intake, Autotransfusion Amount 1530 / 1530 Output: Urine 2300 / 2300 2050 / 2050 Wound Drainage 0 / 0 Right Lower Lateral Back 0 / 0 Other: Meal Breakfast Percent of Meal Consumed 25% Stool Size Moderate Stool Consistency soft formed Stool Color Brown # Voids 2 Weight 110.9 kg Blood Glucose* 134 167 Patient Weight 10/31/17 23:59 Weight 110.9 kg - HEENT Pupil (Motor): Pupils equal, EOMI Mallampati: III Teeth: Normal - GRE[place] PICKER LOC: Oriented [place]ICK[place] Motor: Normal RUE, Normal LUE, Normal RLE, Normal LLE, Normal Face GRE[place] PICKER Sensory: Normal: RUE, LUE, RLE, LLE, Face - Cardiac Rhythm: Regular - Pulmonary Breath Sounds: bilateral Clear Respiratory Effort: Symmetrical Anesthesia Assess/Plan ASA Score: 3 (Afib, Smoker,) Modified Carmine Scale for Level of Consciousness: Cooperative, oriented, and tranquil Anesthetic Plan: General Monitoring Plan: Standard Monitors Recovery Plan: PACU Anes Supervising Prov Stmt: Pt seen/evaluated, R&B discussed, questions answered and consent obtained. Justen Reed MD
[2017-11-01] MEDS: Ipratropium/Albuterol Neb 3 ML IH SCH ×4 (03:33→21:40)
[2017-11-01] MEDS: Vancomycin 1,500 MG in D5% in Water 250 ML IVPB SCH (04:10)
[2017-11-01 04:58] LABS: BUN/Creatinine Ratio 20 (6-26); Blood Urea Nitrogen 14 mg/dL (6-20); Calcium 8.1 mg/dL (8.6-10.3); Carbon Dioxide 27 mEq/L (23-29); Chloride 95 mEq/L (98-107); Glucose 90 mg/dL (70-105); Magnesium 2.1 mg/dL (1.6-2.6); Osmolality,Calculated 270 (280-300); Phosphorous 3.5 mg/dL (2.7-4.5); Potassium 3.9 mEq/L (3.5-5.1); Sodium 130 mEq/L (136-145); eGFR For African Americans > 60 (> 60); eGFR For Non-African Americans > 60 (> 60)
[2017-11-01] MEDS: *HR* Enoxaparin 40 MG/0.4 ML SYRINGE SQ SCH (05:21)
[2017-11-01] MEDS: Insulin LISPRO 300 UNITS/3 ML VIAL SQ SCH ×2 (05:30→12:30)
[2017-11-01] MEDS: Piperacillin/Tazobactam 3.375 GM/200 ML BAG IVPB SCH ×2 (05:45→14:13)
--- NOTE | 2017-11-01 07:39 | General Surgery Progress Note ---
Date of Encounter: 11/01/17 Time of Encounter: 07:37 - Assessment and Plan (1) Diverticulitis of colon with perforation Current Visit: Yes Status: Acute 42M with hinchey class II diverticulitis complicated by afib with RVR now s/p drainage of abscess by IR; wbc still elevated despite feeling better and being afebrile; all images reviewed and interpreted by me; pt with persistent SOB, although improved with diuresis; bilateral pleural effusions on CT scan; slightly larger when compared serially; - N PO - consult to IR for thoracocentesis - cont with TPN; will resume diet after - cont vanc, possible diflucan today Qualifiers: Diverticulitis bleeding: without bleeding Qualified Code(s): K57.20 - Diverticulitis of large intestine with perforation and abscess without bleeding Subjective Patient reports: no new complaints, feels better, tolerating liquids well, tolerating a regular diet, flatus, bowel movement, shortness of breath, afebrile Objective Vital Signs - Last 8 Hours Temp Pulse Resp BP Pulse Ox 11/01/17 05:30 98.8 F 104 16 125/86 96 11/01/17 03:33 16 95 10/31/17 23:39 98.8 F 109 19 134/88 94 Intake and Output 10/31/17 10/31/17 11/01/17 15:59 23:59 07:59 Intake Total 710 / 710 450 / 450 200 / 200 Output Total 0 / 0 3150 / 3150 1974 Balance 710 / 710 -2700 / -2700 -1775 / -1775 Intake: IV Fluids 350 / 350 450 / 450 200 / 200 Levaquin Premix 750mg/150 mL 150 / 150 750 mg In 150 ml @ 100 mls/hr IVPB DAILY REJI Rx#:[id number] Zosyn Premix 3.375 GM/200 ML 3. 200 / 200 200 / 200 200 / 200 375 gm In 200 ml @ 50 mls/hr IVPB Q8H ERJI Rx#:[id number] Vancocin 1,500 MG In Dextrose 5 250 / 250 % 250 ML @ 166.67 mls/hr IVPB Q12H REJI Rx#:[id number] Oral 360 / 360 Output: Urine 3150 / 3150 1974 Wound Drainage 0 / 0 Right Lower Lateral Back 0 / 0 Other: Meal Breakfast Percent of Meal Consumed 25% Stool Size Moderate Moderate Small Stool Consistency soft formed formed Stool Color Brown Brown # Voids 1 # Bowel Movements 1 1 Weight 110.8 kg Blood Glucose* 144 154 Patient Weight 11/01/17 23:59 Weight 110.8 kg - General physical appearance well developed, well nourished - Respiratory normal expansion, normal respiratory effort - Cardiovascular Cardiovascular exam: Present: RRR - Abdomen Abdomen: Present: soft, non tender - Neurologic CN 2-12 grossly intact - Psychiatric oriented to time, oriented to person - Labs 10/31/17 05:23 11/01/17 04:15 Diabetes panel 11/01/17 Range/Units 04:15 Sodium 130 L (136-145) mEq/L Potassium 3.9 (3.5-5.1) mEq/L Chloride 95 L (98-107) mEq/L Carbon Dioxide 27 (23-29) mEq/L BUN 14 (6-20) mg/dL Creatinine 0.69 L (0.70-1.30) mg/dL Glucose 90 (70-105) mg/dL Calcium 8.1 L (8.6-10.3) mg/dL Calcium panel 11/01/17 Range/Units 04:15 Calcium 8.1 L (8.6-10.3) mg/dL Phosphorus 3.5 (2.7-4.5) mg/dL Pituitary panel 11/01/17 Range/Units 04:15 Sodium 130 L (136-145) mEq/L Potassium 3.9 (3.5-5.1) mEq/L Chloride 95 L (98-107) mEq/L Carbon Dioxide 27 (23-29) mEq/L BUN 14 (6-20) mg/dL Creatinine 0.69 L (0.70-1.30) mg/dL Glucose 90 (70-105) mg/dL Calcium 8.1 L (8.6-10.3) mg/dL Adrenal panel 11/01/17 Range/Units 04:15 Sodium 130 L (136-145) mEq/L Potassium 3.9 (3.5-5.1) mEq/L Chloride 95 L (98-107) mEq/L Carbon Dioxide 27 (23-29) mEq/L BUN 14 (6-20) mg/dL Creatinine 0.69 L (0.70-1.30) mg/dL Glucose 90 (70-105) mg/dL Calcium 8.1 L (8.6-10.3) mg/dL - Imaging CT scan - abdomen: report reviewed, image reviewed CT scan - chest: report reviewed, image reviewed CT Scan - head: report reviewed, image reviewed Consult Discharge Plan - Plan Referrals: NONE,PCP [Primary Care Provider] - Jenise Dalal [Family Provider] -
[2017-11-01] MEDS ORDERED: Aminoglycoside Consult 1 EACH MC ONE (08:10)
[2017-11-01 08:39] LABS: Total Protein 5.8 g/dL (6.4-8.9)
[2017-11-01 11:11] LABS: RBC,Pleural Fluid 0.013 M/mcL
[2017-11-01] MEDS: Diltiazem CD (24hr) 300 MG CAPSULE PO SCH (11:48)
[2017-11-01] MEDS: Levofloxacin 750 MG/150 ML 750 MG/150 ML BAG IVPB SCH (11:48)
[2017-11-01] MEDS: Furosemide 40 MG/4 ML VIAL IVP SCH ×2 (11:48→16:48)
[2017-11-01] MEDS: Aspirin Enteric Coated 81 MG Tablet PO SCH (11:48)
[2017-11-01 12:18] LABS: Amylase,Pleural Fluid 26 Units/L (No Ref Range); Glucose,Pleural Fluid 123 mg/dL (No Ref Range); LDH,Pleural Fluid 498 Units/L (No Ref Range); Total Protein,Pleural Fluid 3.4 g/dL (No Ref Range); Triglycerides, Pleural Fluid 52 mg/dL (No Ref Range)
--- NOTE | 2017-11-01 12:37 | Pulmonology Progress Note ---
Date of Encounter: 11/01/17 Time of Encounter: 12:15 Assessment and Plan (1) Acute respiratory failure with hypoxia Current Visit: Yes Status: Acute Patient reason for V/Q mismatch is bilateral pleural effusion with compressive atelectasis , this atelectasis is secondary to pleural effusion and splinting of diaphragm , now slowly getting better will do incentive spirometry for now to wean O2 as tolerated , very low probability this atelectasis caused by pneumonia. Since the patient V/Q mismatch is not getting better patient had right sided thoracentesis 850 ml of pleural fluid was removed , felt lot better will wean FIO2 as tolerated (2) Compression atelectasis Current Visit: Yes Status: Acute Atelectasis mainly due to bilateral pleural effusion and splinting of diaphragm to continue incentive spirometry very low probability airspace disease but cannot be completely ruled out to continue broad spectrum antibiotics for now. (3) Bilateral pleural effusion Current Visit: Yes Status: Acute Bilateral pleural effusion with elevated BNP and ECHO shows dilated left atrium points towards exacerbation of diastolic heart failure rather parapneumonic effusion patient is 9 liter positive will continue diuresis according to cardiology . Patient had thoracentesis today the fluid is darkish yellow fluid , according to lights criteria it looks exudative with long standing CHF effusion under diuresis can become pseudoexudative will wait for pleural fluid gram stain and culture . Pleural effusion doesnt look complicated Subjective Principal diagnosis: atrial fibrillation with RVR Interval history: Patient came with abdominal pain found to be in diverticular perforation leading to abscess which was drained , having persistent leukocytosis pulmonary was consulted whether leukocytosis is due to pneumonia or not . Patient today is doing well , no cough and sputum production , denies any chest pain or abdominal pain , CT abdomen and pelvis showed some small collection is not drainable , patient had thoracentesis today . Objective PUL Vital signs: Last Vital Signs Temp 97.6 F 11/01/17 11:23 Pulse 118 11/01/17 11:23 Resp 14 11/01/17 11:23 BP 123/93 11/01/17 11:23 Pulse Ox 91 11/01/17 11:23 Auscultation: bilateral: diminished breath sounds Results - Laboratory Findings CBC and BMP: 11/01/17 12:47 11/01/17 04:15 PT/INR, D-dimer PT 14.1 Seconds (9.4-12.1) H 10/30/17 10:52 D-Dimer 14154 ng/mLFEU (0-500) H 10/30/17 08:50 Abnormal lab findings: Abnormal lab results WBC 38.6 K/mcL (4.3-11.1) H* 10/31/17 05:23 MPV 9.1 fL (9.4-12.4) L 10/31/17 05:23 Immature Gran % 12.1 % (0-4) H 10/30/17 05:02 Band Neutrophils % 16.0 % (0-4) H 10/31/17 05:23 Metamyelocytes % 4.0 % (0) H 10/26/17 06:54 Neutrophils # 24.7 K/mcL (1.6-8.9) H 10/31/17 05:23 Lymphocytes # 7.0 K/mcL (0.6-4.6) H 10/31/17 05:23 Monocytes # 7.0 K/mcL (0.0-1.3) H 10/31/17 05:23 Nucleated RBCs/100 WBC 0.1 /100 WBC (0) H 10/24/17 09:47 Reactive Lymphocytes Present (Not Present) A 10/30/17 05:02 Toxic Granulation Present (Not Present) A 10/30/17 05:02 Large Platelets Present (Not Present) A 10/29/17 04:57 PT 14.1 Seconds (9.4-12.1) H 10/30/17 10:52 APTT 38.4 Seconds (26.0-36.0) H 10/31/17 05:23 D-Dimer 96174 ng/mLFEU (0-500) H 10/30/17 08:50 Sodium 130 mEq/L (136-145) L 11/01/17 04:15 Chloride 95 mEq/L (98-107) L 11/01/17 04:15 Creatinine 0.69 mg/dL (0.70-1.30) L 11/01/17 04:15 POC Glucose 154 (58-89) H 11/01/17 05:28 Calculated Osmolality 270 (280-300) L 11/01/17 04:15 Calcium 8.1 mg/dL (8.6-10.3) L 11/01/17 04:15 B-Natriuretic Peptide 251 pg/mL (Less than 100) H 10/28/17 04:25 Serum Total Protein 5.8 g/dL (6.4-8.9) L 11/01/17 04:15 Prealbumin 11.2 mg/dL (17.0-34.0) L 10/31/17 05:23 Triglycerides 232 mg/dL (< 150) H 10/27/17 10:46 Urine Clarity Cloudy (Clear) A 10/24/17 10:57 Ur Specific [place] > 1.030 (1.010-1.025) H 10/24/17 10:57 Urine Protein 30 mg/dL (Neg-Trace) H 10/24/17 10:57 Urine Ketones 15 mg/dL (Negative) H 10/24/17 10:57 Urine Bilirubin Small (Negative) H 10/24/17 10:57 Ur Squamous Epith Cells Many per lpf (None-Few) H 10/24/17 10:57 Granular Casts Few per lpf (None Seen) H 10/24/17 10:57 Pleural RBC 0.013 M/mcL (0.000-0.002) H 11/01/17 09:45 Pleural Tot Nuc Cell 4707 TNC/mcL (0-1000) H 11/01/17 09:45 - Microbiology Findings Microbiology Findings: Microbiology, Last 48 Hours 10/27/17 22:32 Body Fluid Culture - Final Other-Specify in Comments Escherichia coli Streptococcus anginosus 10/27/17 22:32 Anaerobic Culture - Preliminary Aspirate At this time, no anaerobic growth is present. The culture will be finalized after 5 days of incubation. - Clinical Findings Intake & Output: Intake & Output 10/31/17 11/01/17 11/01/17 23:59 07:59 15:59 Intake Total 450 / 450 700 / 700 200 / 200 Output Total 3150 / 3150 2675 / 2675 1450 / 1450 Balance -2700 / -2700 -1974 / -1974 -1250 / -1250 Weight 110.8 kg - VTE Documentation of Mechanical Device: Intermittent pneumatic compression device Consult Discharge Plan - Plan Referrals: Manuel Webster MD [Partnered Physician] - 11/08/17 2:45 pm
[2017-11-01 12:50] LABS: Appearance of Pleural Fl Cloudy (Clear); Eosinophils,Pleural Fluid 2.4 %; Lymphocytes,Pleural Fluid 9.5 %
[2017-11-01 13:02] LABS: Hematocrit 48.1 % (37.5-50.1); Hemoglobin 16.5 g/dL (12.9-16.9); Mean Corpuscular HGB Conc 34.3 g/dL (31.6-35.5); Mean Corpuscular Hemoglobin 30.8 pg (28.0-33.3); Mean Corpuscular Volume 89.9 fL (83.0-100.0); Mean Platelet Volume 9.1 fL (9.4-12.4); Platelet Count 430 K/mcL (140-400); Red Blood Count 5.35 M/mcL (4.19-5.50); Red Cell Distribution Width 12.6 % (11.5-14.5)
[2017-11-01 13:20] LABS: Lymphocytes # 4.8 K/mcL (0.6-4.6); Monocytes # 3.2 K/mcL (0.0-1.3); Neutrophils # 31.7 K/mcL (1.6-8.9); Platelet Estimate Increased (Normal)
[2017-11-01 13:27] LABS: Albumin 3.1 g/dL (3.5-5.7); Bilirubin,Direct 0.2 mg/dL (0.0-0.2); Bilirubin,Indirect 0.6 mg/dL (0.0-1.2); Bilirubin,Total 0.8 mg/dL (0.3-1.0); Globulin 3.1 g/dL (2.4-3.5); Total Protein 6.2 g/dL (6.4-8.9)
[2017-11-01] MEDS: Fluconazole 400 MG/200 ML 400 MG/200 ML BAG IVPB SCH ×2 (17:57→19:56)
--- NOTE | 2017-11-01 20:13 | Electrocardiograph Report ---
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
[2017-11-02] MEDS: Ipratropium/Albuterol Neb 3 ML IH SCH ×4 (03:48→21:57)
[2017-11-02] MEDS: *HR* Enoxaparin 40 MG/0.4 ML SYRINGE SQ SCH (05:21)
[2017-11-02 06:03] LABS: Hematocrit 42.6 % (37.5-50.1); Hemoglobin 14.4 g/dL (12.9-16.9); Mean Corpuscular HGB Conc 33.8 g/dL (31.6-35.5); Mean Corpuscular Hemoglobin 31.2 pg (28.0-33.3); Mean Corpuscular Volume 92.2 fL (83.0-100.0); Mean Platelet Volume 9.1 fL (9.4-12.4); Platelet Count 364 K/mcL (140-400); Red Blood Count 4.62 M/mcL (4.19-5.50); Red Cell Distribution Width 12.9 % (11.5-14.5)
[2017-11-02 06:27] LABS: BUN/Creatinine Ratio 24 (6-26); Blood Urea Nitrogen 16 mg/dL (6-20); Calcium 7.9 mg/dL (8.6-10.3); Carbon Dioxide 27 mEq/L (23-29); Chloride 98 mEq/L (98-107); Glucose 98 mg/dL (70-105); Magnesium 2.1 mg/dL (1.6-2.6); Osmolality,Calculated 271 (280-300); Phosphorous 3.5 mg/dL (2.7-4.5); Sodium 130 mEq/L (136-145); eGFR For African Americans > 60 (> 60); eGFR For Non-African Americans > 60 (> 60)
[2017-11-02 08:21] LABS: Eosinophils # 1.2 K/mcL (0.0-0.6); Lymphocytes # 5.4 K/mcL (0.6-4.6); Monocytes # 1.9 K/mcL (0.0-1.3); Neutrophils # 28.5 K/mcL (1.6-8.9); Platelet Estimate Normal (Normal)
--- NOTE | 2017-11-02 08:55 | General Surgery Progress Note ---
Addendum entered and electronically signed by Garrett Ramey DO 11/02/17 10:47: D/C TPN Original Note: <Garrett Ramey - Last Filed: 11/02/17 09:07> Date of Encounter: 11/02/17 Time of Encounter: 08:51 - Assessment and Plan (1) Bilateral pleural effusion Current Visit: Yes Status: Acute Patient received thoracentesis yesterday. Per light's criteria, fluid is exudative. per pulm, possibly pseudo-exudative. - Pleural gram stain and cultures - pending. (2) Diverticulitis of colon with perforation Current Visit: Yes Status: Acute hinchey class II diverticulitis complicated by afib with RVR. Patient remains stable and without pain. No drainage today. WBC remains elevated despite feeling better and afebrile. elevated WBC most likely due to PNA. - continue with TPN - continue to monitor drain - continue vanc- ambulation with assistance TID Qualifiers: Diverticulitis bleeding: without bleeding Qualified Code(s): K57.20 - Diverticulitis of large intestine with perforation and abscess without bleeding (3) Atrial fibrillation with RVR Current Visit: Yes Status: Acute AF w/ RVR. currently rate controlled. per management of cardiology Subjective Patient reports: feels better, afebrile Narrative: 42 yo M here for bilateral pleural effusion and abd abscess. Thoracentesis was performed yesterday by IR and patient reports that he's feeling a lot better today and that he's having no trouble breathing today. Objective Vital Signs - Last 8 Hours Temp Pulse Resp BP Pulse Ox 11/02/17 06:28 98 F 105 16 125/81 93 11/02/17 05:00 97.8 F 107 20 140/89 93 11/02/17 03:48 16 91 Intake and Output 11/01/17 11/02/17 11/02/17 23:59 07:59 15:59 Intake Total 800 / 800 990 / 990 Output Total 1450 / 1450 1650 / 1650 Balance -650 / -650 -660 / -660 Intake: IV Fluids 200 / 200 Diflucan Premix 400 MG/200 ML 200 / 200 400 mg In 200 ml @ 100 mls/hr IVPB Q2H [facility] Rx#:[id number] Oral 600 / 600 990 / 990 Output: Urine 1450 / 1450 1650 / 1650 Other: Meal Dinner Percent of Meal Consumed 100% # Voids 3 1 # Bowel Movements 1 Weight 107.8 kg Patient Weight 11/02/17 23:59 Weight 107.8 kg - General physical appearance well developed, well nourished, no distress - Eyes normal ocular movement - ENT normal mucosa, no hearing loss, no congestion - Respiratory normal expansion, normal respiratory effort, clear to percussion, clear to auscultation - Cardiovascular Cardiovascular exam: Present: RRR - Abdomen Abdomen: Present: bowel sounds present, soft, non tender - Integumentary no rash, no growths, no abnormal pigmentation - Neurologic normal coordination, normal sensation - Psychiatric oriented to time, oriented to person, oriented to place, speech is normal, memory intact - Labs 11/02/17 05:40 11/02/17 05:40 Diabetes panel 11/01/17 11/02/17 Range/Units 12:41 05:40 Sodium 130 L (136-145) mEq/L Potassium 4.0 (3.5-5.1) mEq/L Chloride 98 (98-107) mEq/L Carbon Dioxide 27 (23-29) mEq/L BUN 16 (6-20) mg/dL Creatinine 0.66 L (0.70-1.30) mg/dL Glucose 98 (70-105) mg/dL Calcium 7.9 L (8.6-10.3) mg/dL AST 40 H (13-39) Units/L ALT 54 H (7-52) Units/L Alkaline Phosphatase 170 H (34-104) Units/L Albumin 3.1 L (3.5-5.7) g/dL Calcium panel 11/01/17 11/02/17 Range/Units 12:41 05:40 Calcium 7.9 L (8.6-10.3) mg/dL Phosphorus 3.5 (2.7-4.5) mg/dL Albumin 3.1 L (3.5-5.7) g/dL Pituitary panel 11/02/17 Range/Units 05:40 Sodium 130 L (136-145) mEq/L Potassium 4.0 (3.5-5.1) mEq/L Chloride 98 (98-107) mEq/L Carbon Dioxide 27 (23-29) mEq/L BUN 16 (6-20) mg/dL Creatinine 0.66 L (0.70-1.30) mg/dL Glucose 98 (70-105) mg/dL Calcium 7.9 L (8.6-10.3) mg/dL Adrenal panel 11/01/17 11/02/17 Range/Units 12:41 05:40 Sodium 130 L (136-145) mEq/L Potassium 4.0 (3.5-5.1) mEq/L Chloride 98 (98-107) mEq/L Carbon Dioxide 27 (23-29) mEq/L BUN 16 (6-20) mg/dL Creatinine 0.66 L (0.70-1.30) mg/dL Glucose 98 (70-105) mg/dL Calcium 7.9 L (8.6-10.3) mg/dL Total Bilirubin 0.8 (0.3-1.0) mg/dL AST 40 H (13-39) Units/L ALT 54 H (7-52) Units/L Alkaline Phosphatase 170 H (34-104) Units/L Albumin 3.1 L (3.5-5.7) g/dL - VTE Documentation of Mechanical Device: Intermittent pneumatic compression device Consult Discharge Plan - Plan Referrals: Manuel Webster MD [Partnered Physician] - 11/08/17 2:45 pm <Angel Hernandez - Last Filed: 11/02/17 11:42> Date of Encounter: 11/02/17 - Assessment and Plan (1) Diverticulitis of colon with perforation Current Visit: Yes Status: Acute Qualifiers: Diverticulitis bleeding: without bleeding Qualified Code(s): K57.20 - Diverticulitis of large intestine with perforation and abscess without bleeding Objective Vital Signs - Last 8 Hours Temp Pulse Resp BP Pulse Ox 11/02/17 11:10 99.1 F 110 16 119/79 93 11/02/17 06:28 98 F 105 16 125/81 93 11/02/17 05:00 97.8 F 107 20 140/89 93 11/02/17 03:48 16 91 Intake and Output 11/01/17 11/02/17 11/02/17 23:59 07:59 15:59 Intake Total 800 / 800 990 / 990 240 / 240 Output Total 1450 / 1450 1650 / 1650 0 / 0 Balance -650 / -650 -660 / -660 240 / 240 Intake: IV Fluids 200 / 200 Diflucan Premix 400 MG/200 ML 200 / 200 400 mg In 200 ml @ 100 mls/hr IVPB Q2H [facility] Rx#:[id number] Oral 600 / 600 990 / 990 240 / 240 Output: Urine 1450 / 1450 1650 / 1650 Wound Drainage 0 / 0 Right Lower Lateral Back 0 / 0 Other: Meal Dinner Breakfast Percent of Meal Consumed 100% 100% # Voids 3 1 # Bowel Movements 1 Weight 107.8 kg Patient Weight 11/02/17 23:59 Weight 107.8 kg - Labs 11/02/17 05:40 11/02/17 05:40 Diabetes panel 11/01/17 11/02/17 Range/Units 12:41 05:40 Sodium 130 L (136-145) mEq/L Potassium 4.0 (3.5-5.1) mEq/L Chloride 98 (98-107) mEq/L Carbon Dioxide 27 (23-29) mEq/L BUN 16 (6-20) mg/dL Creatinine 0.66 L (0.70-1.30) mg/dL Glucose 98 (70-105) mg/dL Calcium 7.9 L (8.6-10.3) mg/dL AST 40 H (13-39) Units/L ALT 54 H (7-52) Units/L Alkaline Phosphatase 170 H (34-104) Units/L Albumin 3.1 L (3.5-5.7) g/dL Calcium panel 11/01/17 11/02/17 Range/Units 12:41 05:40 Calcium 7.9 L (8.6-10.3) mg/dL Phosphorus 3.5 (2.7-4.5) mg/dL Albumin 3.1 L (3.5-5.7) g/dL Pituitary panel 11/02/17 Range/Units 05:40 Sodium 130 L (136-145) mEq/L Potassium 4.0 (3.5-5.1) mEq/L Chloride 98 (98-107) mEq/L Carbon Dioxide 27 (23-29) mEq/L BUN 16 (6-20) mg/dL Creatinine 0.66 L (0.70-1.30) mg/dL Glucose 98 (70-105) mg/dL Calcium 7.9 L (8.6-10.3) mg/dL Adrenal panel 11/01/17 11/02/17 Range/Units 12:41 05:40 Sodium 130 L (136-145) mEq/L Potassium 4.0 (3.5-5.1) mEq/L Chloride 98 (98-107) mEq/L Carbon Dioxide 27 (23-29) mEq/L BUN 16 (6-20) mg/dL Creatinine 0.66 L (0.70-1.30) mg/dL Glucose 98 (70-105) mg/dL Calcium 7.9 L (8.6-10.3) mg/dL Total Bilirubin 0.8 (0.3-1.0) mg/dL AST 40 H (13-39) Units/L ALT 54 H (7-52) Units/L Alkaline Phosphatase 170 H (34-104) Units/L Albumin 3.1 L (3.5-5.7) g/dL - Attending Attestation I have personally seen and examined the patient. I have reviewed pertinent labs , imaging, progress notes, including this one. I agree with the above assessment and plan and wish to include the following... patient doing better clinically. Has no pain, tolerating diet and having bowel function; does not report dyspnea; mildly tachycardic, but sinus rhythm. still with leukocytosis despite broad spectrum antibiotics, tailor antibiotics based upon cultures, adding antifungal. Will await hematology and infectious disease recommendations (both have been consulted), will repeat CT scan. If not change in clinical condition and their is nothing more we can do for him (intervention gutierrez), then will plan for discharge at that time. Likely tomorrow;
[2017-11-02] MEDS ORDERED: levoFLOXacin 750 MG TABLET PO SCH (09:00)
[2017-11-02] MEDS: Diltiazem CD (24hr) 300 MG CAPSULE PO SCH (09:18)
[2017-11-02] MEDS: Furosemide 40 MG/4 ML VIAL IVP SCH ×2 (09:18→17:05)
[2017-11-02] MEDS: Aspirin Enteric Coated 81 MG Tablet PO SCH (09:18)
--- NOTE | 2017-11-02 10:05 | Oncology Inp Consult Note ---
<Sarahi Dawkins L - Last Filed: 11/02/17 13:20> Date of Encounter: 11/02/17 Time of Encounter: 10:04 Assessment and Plan (1) Leukocytosis, unspecified Status: Acute Assessment and plan: WBC significantly elevated at 38.5 with associated neutrophilia, lymphocytosis, monocytosis and eosinophilia. No basophilia. Likely leukemoid reactive reaction given current inflammatory/infectious process. WBC counts while still high, are trending downward supporting this etiology. The patient has no other associated blood cell abnormalities with normal platelet and RBC counts. Likely he will need no further hematology work up given that these counts continue to improve. He has established with PCP Dr. Barahona and prefers to follow up with lab work with PCP versus appointment with hematology, agree that this is a reasonable plan. Appreciate the consult and would be happy to help with any further questions/ concerns or further consultation if WBC counts continue to stay elevated following complete resolution of inflammation/infection. Qualifiers: Leukocytosis type: unspecified Qualified Code(s): D72.829 - Elevated white blood cell count, unspecified - Data of Consult Requesting Physician: Angel Hernandez MD Primary Care Provider: PCP NONE Family Provider: ZConversion Provider - Consult Narrative History of present illness: Mr. Garzon is a 42 year old male presented to ER on 10/24/17 with complaints of abdominal pain, nausea, vomiting, diarrhea, fevers/chills and generalized malaise intermittently for the week prior. Patient admitted with diverticulitis of colon with perforation. Managed by surgical team, placement of abscess drain by IR with no surgical intervention at this time. Patient also developed new onset A fib with RVR and pleural effusion with thoracentesis performed yesterday. Oncology consulted for further evaluation for persistently elevated WBC. Past Med Surg Social Fam HX - Past Medical History Medical history: no medical history Psychiatric history: no psych history - Past Surgical History Surgical History: no surgical history - Social History Smoking Status: Current every day smoker Packs per day: 1pk Smokeless Tobacco Status: No Alcohol use: heavy Drug use: none Medications and Allergies No Known Home Drugs 10/24/17 [History] 3 Allergy/AdvReac Type Severity Reaction Status Date / Time No Known Allergies Allergy Verified 10/24/17 09:31 Constitutional: Absent: fatigue, fever(s), malaise, night sweats, weight loss Cardiovascular: Absent: chest pain, edema, palpitations Respiratory: Absent: cough, dyspnea Gastrointestinal: Absent: abdominal pain, diarrhea, nausea, vomiting Additional comments: denies urinary symptoms Musculoskeletal: Absent: muscle weakness, myalgias, numbness, tingling Integumentary: Absent: skin ulcer, wounds Neurological: Absent: focal weakness, vertigo Hematologic/Lymphatic: Absent: lymphadenopathy Oncology - Exam - Constitutional Vitals: Temp Pulse Resp BP Pulse Ox 98 F 105 16 125/81 93 11/02/17 06:28 11/02/17 06:28 11/02/17 06:28 11/02/17 06:28 11/02/17 06:28 General appearance: cooperative, no acute distress, no febrile - Head Head exam: Present: atraumatic - Neck Neck exam: Absent: lymphadenopathy, tenderness - Respiratory Respiratory exam: Present: CTAB. Absent: respiratory distress - Cardiovascular Cardiovascular exam: Present: RRR, +S1, +S2 - GI/Abdominal GI/Abdominal exam: Present: hypoactive bowel sounds, soft. Absent: tenderness - Rectal Additional comments: pelvic abscess drain with yellow drainage - Extremities Exam Extremities exam: Absent: calf tenderness, pedal edema - Neurological Exam Neurological exam: Present: alert, oriented X3, strengths equal and symetr throughout. Absent: no focal deficits - Psychiatric Psychiatric exam: Present: normal affect, normal mood - Skin Skin exam: Present: normal color, warm Oncology - Results Labs: Short CBC 11/01/17 11/02/17 Range/Units 12:47 05:40 WBC 39.6 H* 38.5 H* (4.3-11.1) K/mcL Hgb 16.5 14.4 D (12.9-16.9) g/dL Hct 48.1 42.6 (37.5-50.1) % Plt Count 430 H 364 (140-400) K/mcL Neutrophils # 31.7 H 28.5 H (1.6-8.9) K/mcL BMP 11/02/17 05:40 Sodium 130 L Potassium 4.0 Chloride 98 Carbon Dioxide 27 BUN 16 Creatinine 0.66 L Glucose 98 Calcium 7.9 L Liver Function 11/01/17 Range/Units 12:41 Total Bilirubin 0.8 (0.3-1.0) mg/dL Direct Bilirubin 0.2 (0.0-0.2) mg/dL AST 40 H (13-39) Units/L ALT 54 H (7-52) Units/L Alkaline Phosphatase 170 H (34-104) Units/L Albumin 3.1 L (3.5-5.7) g/dL Consult Discharge Plan - Plan Referrals: Manuel Webster MD [Partnered Physician] - 11/08/17 2:45 pm <DonavonWicho - Last Filed: 11/02/17 13:42> Date of Encounter: 11/02/17 - Data of Consult Requesting Physician: Angel Hernandez MD Primary Care Provider: PCP NONE Family Provider: ZConversion Provider - Consult Narrative History of present illness: Mr. Garzon is a 42 year old male Oncology - Exam - Constitutional Vitals: Temp Pulse Resp BP Pulse Ox 99.1 F 110 16 119/79 93 11/02/17 11:10 11/02/17 11:10 11/02/17 11:10 11/02/17 11:10 11/02/17 11:10 Oncology - Results Labs: Short CBC 11/02/17 Range/Units 05:40 WBC 38.5 H* (4.3-11.1) K/mcL Hgb 14.4 D (12.9-16.9) g/dL Hct 42.6 (37.5-50.1) % Plt Count 364 (140-400) K/mcL Neutrophils # 28.5 H (1.6-8.9) K/mcL BMP 11/02/17 05:40 Sodium 130 L Potassium 4.0 Chloride 98 Carbon Dioxide 27 BUN 16 Creatinine 0.66 L Glucose 98 Calcium 7.9 L - Attending Attestation I have seen and examined this patient and agree with A/P. He had a significant infection. He presents with a leukemoid reaction. Given his young age and thus robust bone marrow reserves and the severity of his infection, it is not surprising to see such a dramatic leukocytosis with a left shift. I anticipate that it will improve as it already is (dropping monocytes, granulocytes, and overall WBC count). Thank you for involving us in the care of this patient.
--- NOTE | 2017-11-02 13:35 | Infectious Disease Consult ---
Date of Encounter: 11/02/17 Time of Encounter: 13:35 Assessment and Plan (1) Diverticulitis of colon with perforation Status: Acute Assessment and plan: Symptoms started on 10/19/2017: Severe sigmoid diverticulitis with perforation noted on CT scan on 10/24/2017 Pelvic abscess noted and CT on 11/02/2017 reveals worsening abscess and it's a little bit larger dimension is about 4 x 3 cm. Currently patient has been on vancomycin, Zosyn and levofloxacin. Fluconazole was added yesterday. Status post PRIYA drain placement on 10/27/2017 revealing Escherichia coli that is pansensitive and Streptococcus anginosos. Patient is having about 10 mL drainage from the PRIYA drain per 24 hours At this point underwent a DC the vancomycin, Zosyn and levofloxacin Start the patient on Rocephin plus metronidazole and continued on Diflucan. Discussed with Dr. Hernandez from surgery, awaiting recommendation from surgery and IR regarding the new abscess that is getting larger. Duration of treatment depends on the clinical picture. The patient can start doing better clinically and the abscess is draining appropriately, we will consider switching to oral antibiotic including Augmentin and fluconazole. Monitor labs and for drug toxicity. Check baseline LFTs. Qualifiers: Diverticulitis bleeding: without bleeding Qualified Code(s): K57.20 - Diverticulitis of large intestine with perforation and abscess without bleeding (2) Atrial fibrillation with RVR Status: Acute Assessment and plan: Patient currently on Cardizem (3) SOB (shortness of breath) Status: Acute Assessment and plan: Improves after the paracentesis and removing 800 mL of fluid (4) Bilateral pleural effusion Status: Acute Assessment and plan: Status post paracentesis on 10/31/2017 Appears exudative Discuss with pulmonary Gram stain is negative I don't believe this is infected We'll continue to follow closely (5) Leukocytosis, unspecified Status: Acute Qualifiers: Leukocytosis type: unspecified Qualified Code(s): D72.829 - Elevated white blood cell count, unspecified Infectious Disease HPI - Data of Consult Patient: new to practice Consult date: 11/02/17 Requesting Physician: Angel Hernandez MD Primary Care Provider: PCP NONE Family Provider: ZConversion Provider - Consult Narrative Reason for consult: perforated diverticulitis History of present illness: Mr. Garzon is a 42 year old male Is a 42-year-old gentleman admitted to [facility] on 10/24/2017 for abdominal pain and diverticulitis of the colon with perforation. We are consulted on 11/02/2017 for perforated bowel and worsening leukocytosis. Patient is a 42-year-old gentleman who is otherwise healthy and does not have real medical issues and not taking any medication with the social history positive for tobacco use and heavy EtOH use came in to [facility] on 10/24/2017 complaining of abdominal pain that has been progressively getting worse for 4 days. Patient initially thought he had stomach flu but then it got worse and he had nausea and vomiting. Patient denied any fevers or chills. Denies any chest pain or shortness of breath. Patients pain continued to get worse and eventually came to the emergency department for evaluation. Since admission, patient has been afebrile with MAXIMUM TEMPERATURE of 99.1. Patient though was tachycardic with a heart rate in the 100s. His presenting WBC was 23,000 with neutrophilic predominance and no bands initially. One day after admission patient had bandemia of 40%. His lactic acid was 1.8. Blood cultures were obtained on 10/27/17 and are no growth to date. Abdominal CT done on 11/10 reveals acute severe sigmoid diverticulitis with free air extending up the level of the diaphragm with small amounts of relatively higher density free fluid adjacent to the liver and spleen suggesting free perforation. A chest x-ray showed no acute process. Patient also had a pelvic abscess and on 10/27/2017, patient underwent successful CT-guided placement of a 12 [place] transgluteal pelvic abscess drainage catheter. Intra-Op cultures were positive for Escherichia coli and streptococcus anginosos. Patient had a repeat CT chest on 10/30/2017 which showed no acute process evident compressive atelectasis of the lower lobes. Patient went into atrial fibrillation with RVR and has been started on Cardizem drip. Bilateral lower extremity venous Doppler was done on which came back negative. A thoracentesis was done on 11/01/2017 ultrasound- guided which revealed 850 mL straw-colored fluid was removed. The fluid appeared to be exudative (based on light criteria) with a WBC of 4700, LDH of 497 and a protein of 3.4 and LDH of 498. Cultures from the pleural fluids have been no growth to date. While in the hospital his maximum WBC went up to 42,000 08/30/18 and continues to hover in the high 30,000. Currently patient is on levofloxacin and Diflucan. Previously the patient was on vancomycin and Zosyn. We are asked to evaluate the patient and make further recommendations. Responsible laying in bed. is at bedside. Patient states that he ate all his diet for lunch. Denies abdominal pain. His breathing has improved. Denies any fevers or chills. CC: Angel Hernandez MD Past Med Surg Social Fam HX - Past Medical History Medical history: no medical history Psychiatric history: no psych history - Past Surgical History Surgical History: no surgical history - Social History Smoking Status: Current every day smoker Packs per day: 1pk Smokeless Tobacco Status: No Alcohol use: heavy Drug use: none Infectious Disease-CN:Meds No Known Home Drugs 10/24/17 [History] 3 Allergy/AdvReac Type Severity Reaction Status Date / Time No Known Allergies Allergy Verified 10/24/17 09:31 Review of systems: 10 point review of systems done, negative other for what mentioned in history of present illness. Exam - Constitutional Vitals: Temp Pulse Resp BP Pulse Ox 99.1 F 110 16 119/79 93 11/02/17 11:10 11/02/17 11:10 11/02/17 11:10 11/02/17 11:10 11/02/17 11:10 General appearance: cooperative, no acute distress, no febrile - Head Head exam: Present: atraumatic, normocephalic - Eye Eye exam: Present: EOMI, PERRL, sclera anicteric - ENT ENT exam: Present: mucous membranes moist Additional comments: No oral lesions - Neck Neck exam: Present: full ROM. Absent: meningismus - Respiratory Respiratory exam: Present: CTAB. Absent: rhonchi, wheezes - Cardiovascular Cardiovascular exam: Present: RRR, +S1, +S2 - GI/Abdominal GI/Abdominal exam: Present: distended, soft. Absent: tenderness Additional comments: Hypoactive bowel sounds. No tenderness. No guarding. No rebound. - Extremities Exam Extremities exam: Present: full ROM, normal inspection. Absent: pedal edema - Neurological Exam Neurological exam: Present: alert, oriented X3. Absent: no focal deficits - Psychiatric Psychiatric exam: Present: normal affect, normal mood - Skin Skin exam: Present: normal color. Absent: rash Infectious Disease CN: Results - Labs CBC & Chem 7: 11/02/17 05:40 11/02/17 05:40 Cultures: Cultures 11/01/17 10:00 Body Fluid Culture - Preliminary Pleural Fluid 10/27/17 22:32 Body Fluid Culture - Final Other-Specify in Comments Escherichia coli Streptococcus anginosus 10/27/17 22:32 Anaerobic Culture - Preliminary Aspirate At this time, no anaerobic growth is present. The culture will be finalized after 5 days of incubation. 10/27/17 14:18 Blood Culture - Preliminary Peripheral Venipuncture No growth. 10/27/17 15:42 Blood Culture - Preliminary Peripheral Venipuncture No growth. 10/27/17 20:00 Sputum Culture - Final Sputum Serology: Serology 11/01/17 11/01/17 Range/Units 09:45 09:45 Fluid LDH 497 (No Ref Range) Units/L Pleural Fluid Volume 850.0 mL Pleural Appearance Cloudy A (Clear) Pleural pH 8.00 (No Ref Range) pH Units Pleural RBC 0.013 H (0.000 - 0.002) M/mcL Pleural Tot Nuc Cell 4707 H (0-1000) TNC/mcL Pleural Neutrophils 64.3 % Pleural Band Neuts TNP Pleural Eosinophils 2.4 % Pleural Basophils TNP Pleural Lymphocytes % 9.5 % Pleural Monocytes % TNP Pleural Other Cells % 23.8 % Pleural Total Protein 3.4 (No Ref Range) g/dL Pleural Albumin 2.0 (No Ref Range) g/dL Pleural LDH 498 (No Ref Range) Units/L Pleural Glucose 123 (No Ref Range) mg/dL Pleural Amylase 26 (No Ref Range) Units/L Pleural Cholesterol 67 (No Ref Range) mg/dL Pleural Triglycerides 52 (No Ref Range) mg/dL - VTE Documentation of Mechanical Device: Intermittent pneumatic compression device Consult Discharge Plan - Plan Referrals: Manuel Webster MD [Partnered Physician] - 11/08/17 2:45 pm
[2017-11-02] MEDS ORDERED: Fluconazole 400 MG/200 ML 400 MG/200 ML BAG IVPB SCH (15:00)
[2017-11-02] MEDS: cefTRIAXone 2,000 MG in Water for inj. (sterile) 20 ML 20 ML IVP SCH (17:05)
[2017-11-02] MEDS: metroNIDAZOLE 500 MG TABLET PO SCH ×2 (17:05→21:11)
[2017-11-02] MEDS: Fluconazole 400 MG/200 ML 400 MG/200 ML BAG IVPB SCH (18:09)
--- NOTE | 2017-11-02 20:52 | Pulmonology Progress Note ---
Date of Encounter: 11/02/17 Time of Encounter: 14:30 Assessment and Plan (1) Acute respiratory failure with hypoxia Current Visit: Yes Status: Acute Patient reason for V/Q mismatch is bilateral pleural effusion with compressive atelectasis , this atelectasis is secondary to pleural effusion and splinting of diaphragm , now slowly getting better will do incentive spirometry for now to wean O2 as tolerated , very low probability this atelectasis caused by pneumonia. Since the patient V/Q mismatch is not getting better patient had right sided thoracentesis 850 ml of pleural fluid was removed , felt lot better patient is off oxygen , to continue diuresis as tolerated (2) Compression atelectasis Current Visit: Yes Status: Acute Atelectasis mainly due to bilateral pleural effusion and splinting of diaphragm to continue incentive spirometry very low probability airspace disease antibiotics according to infectious disease. (3) Bilateral pleural effusion Current Visit: Yes Status: Acute Bilateral pleural effusion with elevated BNP and ECHO shows dilated left atrium points towards exacerbation of diastolic heart failure rather parapneumonic effusion will continue diuresis according to cardiology . Patient had thoracentesis yesterday the fluid is darkish yellow fluid , according to lights criteria it looks exudative with long standing CHF effusion under diuresis can become pseudoexudative . Gram stain of the fluid didnt show any bacteria i dont think this is infected . Subjective Principal diagnosis: atrial fibrillation with RVR Interval history: Patient came with abdominal pain found to be in diverticular perforation leading to abscess which was drained , having persistent leukocytosis pulmonary was consulted whether leukocytosis is due to pneumonia or not . Patient today is doing well , no cough and sputum production , denies any chest pain or abdominal pain , CT abdomen and pelvis today enlarging abscess , had thoracentesis yesterday ,patient is off Oxygen feeling lot better . Objective PUL Vital signs: Last Vital Signs Temp 98.5 F 11/02/17 20:17 Pulse 102 11/02/17 20:17 Resp 17 11/02/17 20:17 BP 136/87 11/02/17 20:17 Pulse Ox 96 11/02/17 20:17 Auscultation: bilateral: diminished breath sounds Extremities: edema Results - Laboratory Findings CBC and BMP: 11/02/17 05:40 11/02/17 05:40 PT/INR, D-dimer PT 14.1 Seconds (9.4-12.1) H 10/30/17 10:52 D-Dimer 61616 ng/mLFEU (0-500) H 10/30/17 08:50 Abnormal lab findings: Abnormal lab results WBC 38.5 K/mcL (4.3-11.1) H* 11/02/17 05:40 MPV 9.1 fL (9.4-12.4) L 11/02/17 05:40 Immature Gran % 12.1 % (0-4) H 10/30/17 05:02 Band Neutrophils % 7.0 % (0-4) H 11/02/17 05:40 Metamyelocytes % 4.0 % (0) H 10/26/17 06:54 Myelocytes % 4.0 % (0) H 11/02/17 05:40 Neutrophils # 28.5 K/mcL (1.6-8.9) H 11/02/17 05:40 Lymphocytes # 5.4 K/mcL (0.6-4.6) H 11/02/17 05:40 Monocytes # 1.9 K/mcL (0.0-1.3) H 11/02/17 05:40 Eosinophils # 1.2 K/mcL (0.0-0.6) H 11/02/17 05:40 Nucleated RBCs/100 WBC 0.1 /100 WBC (0) H 10/24/17 09:47 Reactive Lymphocytes Present (Not Present) A 10/30/17 05:02 Toxic Granulation Present (Not Present) A 10/30/17 05:02 Large Platelets Present (Not Present) A 10/29/17 04:57 PT 14.1 Seconds (9.4-12.1) H 10/30/17 10:52 APTT 38.4 Seconds (26.0-36.0) H 10/31/17 05:23 D-Dimer 31050 ng/mLFEU (0-500) H 10/30/17 08:50 Sodium 130 mEq/L (136-145) L 11/02/17 05:40 Creatinine 0.66 mg/dL (0.70-1.30) L 11/02/17 05:40 POC Glucose 127 (58-89) H 11/01/17 11:27 Calculated Osmolality 271 (280-300) L 11/02/17 05:40 Calcium 7.9 mg/dL (8.6-10.3) L 11/02/17 05:40 AST 40 Units/L (13-39) H 11/01/17 12:41 ALT 54 Units/L (7-52) H 11/01/17 12:41 Alkaline Phosphatase 170 Units/L (34-104) H 11/01/17 12:41 B-Natriuretic Peptide 251 pg/mL (Less than 100) H 10/28/17 04:25 Serum Total Protein 6.2 g/dL (6.4-8.9) L 11/01/17 12:41 Albumin 3.1 g/dL (3.5-5.7) L 11/01/17 12:41 Albumin/Globulin Ratio 1.0 (1.1-2.2) L 11/01/17 12:41 Prealbumin 11.2 mg/dL (17.0-34.0) L 10/31/17 05:23 Triglycerides 232 mg/dL (< 150) H 10/27/17 10:46 Urine Clarity Cloudy (Clear) A 10/24/17 10:57 Ur Specific [place] > 1.030 (1.010-1.025) H 10/24/17 10:57 Urine Protein 30 mg/dL (Neg-Trace) H 10/24/17 10:57 Urine Ketones 15 mg/dL (Negative) H 10/24/17 10:57 Urine Bilirubin Small (Negative) H 10/24/17 10:57 Ur Squamous Epith Cells Many per lpf (None-Few) H 10/24/17 10:57 Granular Casts Few per lpf (None Seen) H 10/24/17 10:57 Pleural Appearance Cloudy (Clear) A 11/01/17 09:45 Pleural RBC 0.013 M/mcL (0.000-0.002) H 11/01/17 09:45 Pleural Tot Nuc Cell 4707 TNC/mcL (0-1000) H 11/01/17 09:45 - Microbiology Findings Microbiology Findings: Microbiology, Last 48 Hours 11/01/17 10:00 Body Fluid Culture - Preliminary Pleural Fluid 10/27/17 22:32 Body Fluid Culture - Final Other-Specify in Comments Escherichia coli Streptococcus anginosus 10/27/17 22:32 Anaerobic Culture - Preliminary Aspirate At this time, no anaerobic growth is present. The culture will be finalized after 5 days of incubation. - Clinical Findings Intake & Output: Intake & Output 11/02/17 11/02/17 11/02/17 07:59 15:59 23:59 Intake Total 990 / 990 480 / 480 Output Total 1650 / 1650 0 / 0 900 / 900 Balance -660 / -660 480 / 480 -900 / -900 Weight 107.8 kg - VTE Documentation of Mechanical Device: Intermittent pneumatic compression device Consult Discharge Plan - Plan Referrals: Manuel Webster MD [Partnered Physician] - 11/08/17 2:45 pm
[2017-11-03] MEDS: Ipratropium/Albuterol Neb 3 ML IH SCH ×4 (03:36→22:08)
[2017-11-03] MEDS: *HR* Enoxaparin 40 MG/0.4 ML SYRINGE SQ SCH (05:39)
[2017-11-03] MEDS: Diltiazem CD (24hr) 300 MG CAPSULE PO SCH (08:20)
[2017-11-03] MEDS: Aspirin Enteric Coated 81 MG Tablet PO SCH (08:20)
[2017-11-03] MEDS: Furosemide 40 MG/4 ML VIAL IVP SCH (08:20)
[2017-11-03] MEDS: metroNIDAZOLE 500 MG TABLET PO SCH (08:21)
[2017-11-03 08:43] LABS: Basophils % 0.2 %; Mean Corpuscular HGB Conc 33.8 g/dL (31.6-35.5); Red Cell Distribution Width 12.8 % (11.5-14.5)
[2017-11-03 08:44] LABS: Basophils # 0.1 K/mcL (0.0-0.2); Eosinophils # 0.3 K/mcL (0.0-0.6); Eosinophils % 0.7 %; Hematocrit 44.7 % (37.5-50.1); Hemoglobin 15.1 g/dL (12.9-16.9); Immature Granulocytes % 5.8 % (0-4); Lymphocytes # 2.3 K/mcL (0.6-4.6); Lymphocytes % 5.3 %; Mean Corpuscular Hemoglobin 31.1 pg (28.0-33.3); Mean Corpuscular Volume 92.2 fL (83.0-100.0); Mean Platelet Volume 8.9 fL (9.4-12.4); Monocytes # 2.2 K/mcL (0.0-1.3); Platelet Count 443 K/mcL (140-400); Red Blood Count 4.85 M/mcL (4.19-5.50)
[2017-11-03 09:01] LABS: Neutrophils # 36.6 K/mcL (1.6-8.9)
[2017-11-03 09:36] LABS: Platelet Estimate Increased (Normal)
--- NOTE | 2017-11-03 09:37 | General Surgery Progress Note ---
<Garrett Ramey - Last Filed: 11/03/17 09:30> Date of Encounter: 11/03/17 Time of Encounter: 09:30 - Assessment and Plan (1) Bilateral pleural effusion Current Visit: Yes Status: Acute Patient received thoracentesis 11/01/17. Per light's criteria, fluid is exudative. per pulm, possibly pseudo-exudative. Pleural gram stain and cultures - negative. (2) Diverticulitis of colon with perforation Current Visit: Yes Status: Acute hinchey class II diverticulitis complicated by afib with RVR. Patient remains stable and without pain. No drainage today. WBC remains elevated despite feeling better and afebrile. WBC came up again to 44.1, most likely due to second abscess. Onc states that is likely leukemoid reaction from inflammatory/ infectious process. - continue to follow WBC - continue to monitor drain - ct abx recommendations by infectious disease Qualifiers: Diverticulitis bleeding: without bleeding Qualified Code(s): K57.20 - Diverticulitis of large intestine with perforation and abscess without bleeding (3) Atrial fibrillation with RVR Current Visit: Yes Status: Acute AF w/ RVR. currently rate controlled. per management of cardiology Subjective Patient reports: no new complaints, feels better, voiding w/o difficulty, bowel movement, afebrile Objective Vital Signs - Last 8 Hours Temp Pulse Resp BP Pulse Ox 11/03/17 07:22 97.9 F 102 18 130/74 95 11/03/17 04:16 102 17 139/84 96 Intake and Output 11/02/17 11/03/17 11/03/17 23:59 07:59 15:59 Intake Total 480 / 480 Output Total 2600 / 2600 1250 / 1250 Balance -2600 / -2600 -1250 / -1250 480 / 480 Intake: Oral 480 / 480 Output: Urine 2600 / 2600 1250 / 1250 Other: Meal Breakfast Percent of Meal Consumed 75% Stool Size Small Stool Consistency formed Stool Characteristics Normal for Patient Stool Color Brown # Voids 1 1 # Bowel Movements 1 1 - General physical appearance well developed, well nourished, no distress - Eyes normal ocular movement - ENT no hearing loss, no congestion - Respiratory normal expansion, normal respiratory effort, clear to percussion, clear to auscultation - Abdomen Abdomen: Present: bowel sounds present, soft, non tender - Rectum no tenderness, no masses - Neurologic normal sensation - Psychiatric oriented to time, oriented to person, oriented to place, speech is normal, memory intact - Labs 11/03/17 08:35 11/02/17 05:40 - VTE Documentation of Mechanical Device: Intermittent pneumatic compression device Consult Discharge Plan - Plan Referrals: Manuel Webster MD [Partnered Physician] - 11/08/17 2:45 pm <Angel Hernandez - Last Filed: 11/03/17 12:28> Date of Encounter: 11/03/17 - Assessment and Plan (1) Diverticulitis of colon with perforation Current Visit: Yes Status: Acute Qualifiers: Diverticulitis bleeding: without bleeding Qualified Code(s): K57.20 - Diverticulitis of large intestine with perforation and abscess without bleeding Objective Vital Signs - Last 8 Hours Temp Pulse Resp BP Pulse Ox 11/03/17 10:16 18 95 11/03/17 07:22 97.9 F 102 18 130/74 95 Intake and Output 11/02/17 11/03/17 11/03/17 23:59 07:59 15:59 Intake Total 480 / 480 Output Total 2600 / 2600 1250 / 1250 Balance -2600 / -2600 -1250 / -1250 480 / 480 Intake: Oral 480 / 480 Output: Urine 2600 / 2600 1250 / 1250 Other: Meal Breakfast Percent of Meal Consumed 75% Stool Size Small Stool Consistency formed Stool Characteristics Normal for Patient Stool Color Brown # Voids 1 1 # Bowel Movements 1 1 - Labs 11/03/17 08:35 11/02/17 05:40 Diabetes panel 11/03/17 Range/Units 10:11 AST 24 (13-39) Units/L ALT 43 (7-52) Units/L Alkaline Phosphatase 154 H (34-104) Units/L Albumin 3.0 L (3.5-5.7) g/dL Calcium panel 11/03/17 Range/Units 10: Albumin 3.0 L (3.5-5.7) g/dL Adrenal panel 11/03/17 Range/Units 10:11 Total Bilirubin 0.7 (0.3-1.0) mg/dL AST 24 (13-39) Units/L ALT 43 (7-52) Units/L Alkaline Phosphatase 154 H (34-104) Units/L Albumin 3.0 L (3.5-5.7) g/dL - Attending Attestation I have personally seen and examined the patient. I have reviewed pertinent labs , imaging, progress notes, including this one. I agree with the above assessment and plan and wish to include the following... 42M with hinchey II diverticulitis complicated by afib with rvr, currently in NSR with low level tachycardia; no SOB/dyspnea, tolerating diet and having bowel function; abx per cultures, NO dvt, no concern for hematological disease; plan for discharge today; PO abx regimen per ID
--- NOTE | 2017-11-03 10:45 | Infectious Disease Progress No ---
Date of Encounter: 11/03/17 Time of Encounter: 10:43 - Assessment and Plan (1) Leukocytosis, unspecified Current Visit: Yes Status: Acute Likely secondary to infectious process. WBC worse this morning, but no bands, despite the patient being clinically improved. Hem/Onc consulted and believe this is likely secondary to infectious process. Continue to trend. Qualifiers: Leukocytosis type: unspecified Qualified Code(s): D72.829 - Elevated white blood cell count, unspecified (2) Diverticulitis of colon with perforation Current Visit: Yes Status: Acute Severe sigmoid diverticulitis with perforation noted on CT scan 10/24/17. Repeat CT scan on 10/27/17 showed improvement in free air, but a new developing abscess was noted within the pelvis. Status post drain placement 10/27/17. Culture grew E. coli and. S. anginosus. Repeat CT scan 11/02/17 showed resolution of the initial abscess, but also showed worsening of second abscess. Discussed with Dr. Dinh with IR and reviewed CT. Concerned that there are actually multiple small abscesses within the abdomen that are not able to be drained percutaneously. Also a larger 5cm x 7cm fluid collection along the liver that's concerning for abscess as well. Clinically, the patient looks great, but the large abscess on the liver is concerning. May need to consider draining at least the liver abscess. Case discussed with Dr. Hernandez. Planning on taking the patient to the OR for abdominal washout tomorrow due to the multiple intra-abdominal abscesses. Continue Rocephin 2 grams IV daily. Continue flagyl 500mg TID, but switch to IV. Continue fluconazole 400mg IV daily. Duration of treatment depends on the clinical picture. Monitor renal and liver function and dose-adjust antibiotics. Qualifiers: Diverticulitis bleeding: without bleeding Qualified Code(s): K57.20 - Diverticulitis of large intestine with perforation and abscess without bleeding (3) Bilateral pleural effusion Current Visit: Yes Status: Acute Status post paracentesis on 10/31/17. Appears exudative per Light's Criteria, but gram stain and culture are negative. Low index of suspicion that this is infected. Continue to monitor closely. (4) SOB (shortness of breath) Current Visit: Yes Status: Resolved Likely secondary to pleural effusions. Resolved. (5) Acute respiratory failure with hypoxia Current Visit: Yes Status: Acute Secondary to bilateral pleural effusions. Resolved. (6) Compression atelectasis Current Visit: Yes Status: Acute (7) Atrial fibrillation with RVR Current Visit: Yes Status: Resolved Likely secondary to infectious process. Still tachycardic, but improved and in sinus rhythm. Management per cardiology recommendations and the primary team. - Subjective Interval history: Patient seen and examined. No acute events noted overnight. Patient sitting up in the bedside chair. Has no complaints. States he feels great and wants to go home. Denies fevers, chills, or rigors. Denies chest pain, shortness of breath, or cough. Denies nausea, vomiting, or diarrhea. States he had two bowel movements this morning. Denies abdominal pain, urinary complaints, or appetite changes. Denies oral thrush or skin lesions. Infect Dis PN-Objective Data - Labs CBC & Chem 7: 11/03/17 08:35 11/02/17 05:40 Labs: Laboratory Results - last 24 hr 11/01/17 11/02/17 11/03/17 11:27 10:26 08:35 WBC 44.1 H* RBC 4.85 Hgb 15.1 Hct 44.7 MCV 92.2 MCH 31.1 MCHC 33.8 RDW 12.8 Plt Count 443 H MPV 8.9 L Immature Gran % 5.8 H Seg Neutrophils % 83.0 Lymphocytes % 5.3 Monocytes % 5.0 Eosinophils % 0.7 Basophils % 0.2 Neutrophils # 36.6 H Lymphocytes # 2.3 Monocytes # 2.2 H Eosinophils # 0.3 Basophils # 0.1 Platelet Estimate Increased H Smear Path Review See Below POC Glucose 127 H Cultures: Cultures 11/01/17 10:00 Body Fluid Culture - Preliminary Pleural Fluid 10/27/17 15:42 Blood Culture - Final Peripheral Venipuncture No growth. 10/27/17 14:18 Blood Culture - Final Peripheral Venipuncture No growth. 10/27/17 22:32 Anaerobic Culture - Final Aspirate No anaerobes were recovered. 10/27/17 22:32 Body Fluid Culture - Final Other-Specify in Comments Escherichia coli Streptococcus anginosus 10/27/17 20:00 Sputum Culture - Final Sputum Serology 11/01/17 11/01/17 Range/Units 09:45 09:45 Fluid LDH 497 (No Ref Range) Units/L Pleural Fluid Volume 850.0 mL Pleural Appearance Cloudy A (Clear) Pleural pH 8.00 (No Ref Range) pH Units Pleural RBC 0.013 H (0.000 - 0.002) M/mcL Pleural Tot Nuc Cell 4707 H (0-1000) TNC/mcL Pleural Neutrophils 64.3 % Pleural Band Neuts TNP Pleural Eosinophils 2.4 % Pleural Basophils TNP Pleural Lymphocytes % 9.5 % Pleural Monocytes % TNP Pleural Other Cells % 23.8 % Pleural Total Protein 3.4 (No Ref Range) g/dL Pleural Albumin 2.0 (No Ref Range) g/dL Pleural LDH 498 (No Ref Range) Units/L Pleural Glucose 123 (No Ref Range) mg/dL Pleural Amylase 26 (No Ref Range) Units/L Pleural Cholesterol 67 (No Ref Range) mg/dL Pleural Triglycerides 52 (No Ref Range) mg/dL - Impressions Impressions Abdomen/Pelvis CT 11/02/17 12:45 IMPRESSION: 1. The intrapelvic abscess adjacent to the sigmoid colon seen on the previous exam is slightly larger on today's study. 2. Perirectal pigtail drainage catheter in the lower pelvis is unchanged with no evidence of recurrent abscess in this region. 3. Dilated proximal small bowel loops raise concern for ileus, possibly related to distal small bowel inflammation from the adjacent intrapelvic abscess. No focal transition point is identified to indicate high grade obstruction. 4. Perihepatic ascites along the inferior margin of the liver appears stable. D/ / Leodan Perez MD / Leodan Perez MD Interpreting Provider: Leodan Perez MD Exam - Constitutional Vitals: Temp Pulse Resp BP Pulse Ox 97.9 F 102 18 130/74 95 11/03/17 07:22 11/03/17 07:22 11/03/17 10:16 11/03/17 07:22 11/03/17 10:16 General appearance: average body habitus, cooperative, no acute distress - Head Head exam: Present: atraumatic, normal inspection, normocephalic - Eye Eye exam: Present: EOMI, normal appearance, PERRL Pupils: Present: normal accommodation - ENT ENT exam: Present: mucous membranes moist - Neck Neck exam: Present: normal inspection - Respiratory Respiratory exam: Present: CTAB. Absent: rales, respiratory distress, rhonchi, wheezes - Cardiovascular Cardiovascular exam: Present: RRR, +S1, +S2 - GI/Abdominal GI/Abdominal exam: Present: normal bowel sounds, soft. Absent: distended, tenderness Additional comments: Pelvic abscess drain noted to the right gluteus with no drainage noted in the bulb. - Extremities Exam Extremities exam: Present: normal inspection, pedal edema (1+ BLE). Absent: joint swelling, tenderness - Neurological Exam Neurological exam: Present: alert, oriented X3, no focal deficits - Psychiatric Psychiatric exam: Present: normal affect, normal mood - Skin Skin exam: Present: dry, intact, normal color, warm - VTE Documentation of Mechanical Device: Intermittent pneumatic compression device Consult Discharge Plan - Plan Referrals: Manuel Webster MD [Partnered Physician] - 11/08/17 2:45 pm - Attending Attestation I examined this patient and my medical decision-making was reviewed with the Resident Physician. I agree with the documented findings, disposition and treatment plan as described except to the extent set forth below. I went down to radiology and discussed both CT's. there is one new large abscess 6x7 cm subhepatic and multiple small abscesses through the abdomen. I called and notified Dr. Hernandez. plan is to take the patient to surgery tomorrow for ex lap. continue rocephin and metronidazole; please send intra op cultures for routine, anaerobic, fungal switch to IV flagyl since pt NPO for surgery after midnight
[2017-11-03 10:50] LABS: Bilirubin,Direct 0.1 mg/dL (0.0-0.2); Bilirubin,Indirect 0.6 mg/dL (0.0-1.2); Bilirubin,Total 0.7 mg/dL (0.3-1.0)
--- NOTE | 2017-11-03 12:05 | Pulmonology Progress Note ---
Date of Encounter: 11/03/17 Time of Encounter: 12:00 Assessment and Plan (1) Acute respiratory failure with hypoxia Current Visit: Yes Status: Acute Patient reason for V/Q mismatch is bilateral pleural effusion with compressive atelectasis , this atelectasis is secondary to pleural effusion and splinting of diaphragm , now slowly getting better will do incentive spirometry for now to wean O2 as tolerated , very low probability this atelectasis caused by pneumonia. Since the patient V/Q mismatch is not getting better patient had right sided thoracentesis 850 ml of pleural fluid was removed , felt lot better patient is off oxygen , to continue diuresis as tolerated (2) Compression atelectasis Current Visit: Yes Status: Acute Atelectasis mainly due to bilateral pleural effusion and splinting of diaphragm to continue incentive spirometry very low probability airspace disease antibiotics according to infectious disease. Patient has intrabdominal abscess that is the main reason for leukocytosis doubt it is pneumonia or infected pleural fluid . (3) Bilateral pleural effusion Current Visit: Yes Status: Acute Bilateral pleural effusion with elevated BNP and ECHO shows dilated left atrium points towards exacerbation of diastolic heart failure rather parapneumonic effusion will continue diuresis according to cardiology . Patient had thoracentesis the fluid is darkish yellow fluid , according to lights criteria it looks exudative with long standing CHF effusion under diuresis can become pseudoexudative . Gram stain of the fluid didnt show any bacteria i dont think this is infected . Infectious disease following will sign off call with questions . Subjective Principal diagnosis: atrial fibrillation with RVR Interval history: Patient came with abdominal pain found to be in diverticular perforation leading to abscess which was drained , having persistent leukocytosis pulmonary was consulted whether leukocytosis is due to pneumonia or not . Patient today is doing well , no cough and sputum production , denies any chest pain or abdominal pain , CT abdomen and pelvis today enlarging abscess , had thoracentesis ,patient is off Oxygen feeling lot better . Repeat CT scan shows concerning for liver abscess . Objective PUL Vital signs: Last Vital Signs Temp 97.9 F 11/03/17 07:22 Pulse 102 11/03/17 07:22 Resp 18 11/03/17 10:16 BP 130/74 11/03/17 07:22 Pulse Ox 95 11/03/17 10:16 Auscultation: bilateral: diminished breath sounds Results - Laboratory Findings CBC and BMP: 11/03/17 08:35 11/02/17 05:40 PT/INR, D-dimer PT 14.1 Seconds (9.4-12.1) H 10/30/17 10:52 D-Dimer 60899 ng/mLFEU (0-500) H 10/30/17 08:50 Abnormal lab findings: Abnormal lab results WBC 44.1 K/mcL (4.3-11.1) H* 11/03/17 08:35 Plt Count 443 K/mcL (140-400) H 11/03/17 08:35 MPV 8.9 fL (9.4-12.4) L 11/03/17 08:35 Immature Gran % 5.8 % (0-4) H 11/03/17 08:35 Band Neutrophils % 7.0 % (0-4) H 11/02/17 05:40 Metamyelocytes % 4.0 % (0) H 10/26/17 06:54 Myelocytes % 4.0 % (0) H 11/02/17 05:40 Neutrophils # 36.6 K/mcL (1.6-8.9) H 11/03/17 08:35 Monocytes # 2.2 K/mcL (0.0-1.3) H 11/03/17 08:35 Nucleated RBCs/100 WBC 0.1 /100 WBC (0) H 10/24/17 09:47 Reactive Lymphocytes Present (Not Present) A 10/30/17 05:02 Toxic Granulation Present (Not Present) A 10/30/17 05:02 Platelet Estimate Increased (Normal) H 11/03/17 08:35 Large Platelets Present (Not Present) A 10/29/17 04:57 PT 14.1 Seconds (9.4-12.1) H 10/30/17 10:52 APTT 38.4 Seconds (26.0-36.0) H 10/31/17 05:23 D-Dimer 96224 ng/mLFEU (0-500) H 10/30/17 08:50 Sodium 130 mEq/L (136-145) L 11/02/17 05:40 Creatinine 0.66 mg/dL (0.70-1.30) L 11/02/17 05:40 POC Glucose 127 (58-89) H 11/01/17 11:27 Calculated Osmolality 271 (280-300) L 11/02/17 05:40 Calcium 7.9 mg/dL (8.6-10.3) L 11/02/17 05:40 Alkaline Phosphatase 154 Units/L (34-104) H 11/03/17 10:11 B-Natriuretic Peptide 251 pg/mL (Less than 100) H 10/28/17 04:25 Serum Total Protein 6.0 g/dL (6.4-8.9) L 11/03/17 10:11 Albumin 3.0 g/dL (3.5-5.7) L 11/03/17 10:11 Albumin/Globulin Ratio 1.0 (1.1-2.2) L 11/03/17 10:11 Prealbumin 11.2 mg/dL (17.0-34.0) L 10/31/17 05:23 Triglycerides 232 mg/dL (< 150) H 10/27/17 10:46 Urine Clarity Cloudy (Clear) A 10/24/17 10:57 Ur Specific [place] > 1.030 (1.010-1.025) H 10/24/17 10:57 Urine Protein 30 mg/dL (Neg-Trace) H 10/24/17 10:57 Urine Ketones 15 mg/dL (Negative) H 10/24/17 10:57 Urine Bilirubin Small (Negative) H 10/24/17 10:57 Ur Squamous Epith Cells Many per lpf (None-Few) H 10/24/17 10:57 Granular Casts Few per lpf (None Seen) H 10/24/17 10:57 Pleural Appearance Cloudy (Clear) A 11/01/17 09:45 Pleural RBC 0.013 M/mcL (0.000-0.002) H 11/01/17 09:45 Pleural Tot Nuc Cell 4707 TNC/mcL (0-1000) H 11/01/17 09:45 - Microbiology Findings Microbiology Findings: Microbiology, Last 48 Hours 11/01/17 10:00 Body Fluid Culture - Preliminary Pleural Fluid 10/27/17 15:42 Blood Culture - Final Peripheral Venipuncture No growth. 10/27/17 14:18 Blood Culture - Final Peripheral Venipuncture No growth. 10/27/17 22:32 Anaerobic Culture - Final Aspirate No anaerobes were recovered. - Clinical Findings Intake & Output: Intake & Output 11/02/17 11/03/17 11/03/17 23:59 07:59 15:59 Intake Total 480 / 480 Output Total 2600 / 2600 1250 / 1250 Balance -2600 / -2600 -1250 / -1250 480 / 480 - VTE Documentation of Mechanical Device: Intermittent pneumatic compression device Consult Discharge Plan - Plan Referrals: Manuel Webster MD [Partnered Physician] - 11/08/17 2:45 pm
[2017-11-03] MEDS: cefTRIAXone 2,000 MG in Water for inj. (sterile) 20 ML 20 ML IVP SCH (17:10)
[2017-11-03] MEDS: MetroNIDAZOLE 500 MG/100 ML 500 MG/100 ML BAG IVPB SCH (17:13)
[2017-11-03] MEDS: Fluconazole 400 MG/200 ML 400 MG/200 ML BAG IVPB SCH (18:52)
[2017-11-04] MEDS ORDERED: 0.9 % Sodium Chloride 1,000 ML IVC SCH (00:01)
[2017-11-04] MEDS: MetroNIDAZOLE 500 MG/100 ML 500 MG/100 ML BAG IVPB SCH ×2 (00:16→08:27)
--- NOTE | 2017-11-04 00:22 | Anesthesia Evaluation PreOp ---
Date of Encounter: 11/04/17 Time of Encounter: 00:20 - Past History Planned Operation: Lap peritoneal lavage s/p Dx Lap 10/27/17. [Admitted 10/24] Cardiac History: Arrhythmia (episode of AFib w/RVR this hospitalization. Currently resolved) Pulmonary History: Smoker, Other (B-pleural effusions s/p ultrasound guided thoracentesis on 11/01/2017 w/improvement of SOB & associated hypoxia) Other Medical History: Other (Hx colonic diverticulitis w/perforation & abcess. Severe sigmoid diverticulitis with perforation noted on CT scan 10/24/17. Repeat CT scan on 10/27/17 showed improvement in free air and a new developing abscess within the pelvis. Status post drain placement 10/27/17. Culture grew E. coli and. S. anginosus. Repeat CT scan 11/02/17 showed resolution of the initial abscess, and worsening of second abscess.) Anesthesia History: Past Anesthesia (Dental extraction/wisdom teet), MH (NO FamHx of ) Alcohol Use: heavy Drug use: none Medications and Allergies No Known Home Drugs 10/24/17 [History] 3 Allergy/AdvReac Type Severity Reaction Status Date / Time No Known Allergies Allergy Verified 10/24/17 09:31 - Meds/Allergy Pre-op Review Medications Reviewed: Yes Allergies Reviewed: Yes Beta Blockers on Current Med List: No Anesthesia Results - Labs 11/03/17 08:35 11/02/17 05:40 Laboratory Results Impressions Retroperitoneal Abscess Drainage 10/27/17 00:00 IMPRESSION: Successful CT guided placement of a 12 Divehi trans gluteal pelvic abscess drainage catheter. D/ / Sheldon Dinh MD / Sheldon Dinh MD Interpreting Provider: Sheldon Dinh MD Chest CT 10/27/17 11:15 IMPRESSION: Near complete resolution of intra-abdominal free air. There is a developing abscess seen within the pelvis posteriorly, and a small loculated fluid component anteriorly on the right. Scattered areas of inflammation are seen within the lower abdominal -pelvic mesentery. , likely secondary to perforated diverticulitis Proximal small bowel loops are dilated secondary to small bowel wall thickening in the right lower quadrant. Inflammatory process within the pelvis likely accounts for the small bowel wall thickening in the right lower quadrant, creating a partial small bowel obstruction. Oral contrast is seen in the colon D/ / Raphael Gandhi MD / Raphael Gandhi MD Interpreting Provider: Raphael Gandhi MD Echocardiogram 10/28/17 20:56 Impressions: LVEF 60-65%. Normal LV chamber size and function. Mild to moderate concentric left ventricular hypertrophy. Indeterminate diastolic function. Normal right ventricular structure and function. Moderately dilated left atrium. No significant valvular dysfunction. No evidence of pulmonary hypertension. Left Ventricular Wall Motion: Rest Echo Findings All wall segments showed normal motion. Findings: Study Quality * Technically adequate exam. ECG Findings * Atrial fibrillation. Left Ventricle * LVEF 60-65%. * Normal LV chamber size and function. * Mild to moderate concentric left ventricular hypertrophy. * Indeterminate diastolic function. Right Ventricle * Normal right ventricular structure and function. Left Atrium * Moderately dilated left atrium. Right Atrium * Mildly dilated right atrium. Aortic Valve * Aortic valve not well visualized. * No aortic regurgitation. * No aortic stenosis. Mitral Valve * Normal mitral valve structure and function. * No mitral stenosis. * Trace mitral regurgitation. Tricuspid Valve * Normal tricuspid valve structure and function. * Trace tricuspid regurgitation. * No evidence of pulmonary hypertension. Pulmonic Valve * Normal pulmonic valve structure and function. * No pulmonic regurgitation. Aorta * Normally sized aortic root. Pericardium * The pericardium appears normal. IVC * Normal IVC dimensions and inspiratory collapse. Pulmonary Artery * Normal visualized portions of the main pulmonary artery. Chest CTA 10/30/17 09:45 IMPRESSION: 1. No acute pulmonary emboli, aortic dissection or aneurysm 2. Moderate pleural effusions with significant compressive atelectasis of the lower lobes. D/ / Tunde Aburto MD / Tunde Aburto MD Interpreting Provider: Tunde Aburto MD Thoracentesis Ultrasound 11/01/17 00:00 IMPRESSION: Successful ultrasound guided thoracentesis. D/ / Raphael Jackson MD / Raphael Jackson MD Interpreting Provider: Raphael Jackson MD Chest X-Ray 11/01/17 10:12 IMPRESSION: Slight interval decrease in size of right pleural effusion. Persistent bibasilar opacities. No pneumothorax. D/ / Lennie Arnett MD / Lennie Arnett MD Interpreting Provider: Lennie Arnett MD Abdomen/Pelvis CT 11/02/17 12:45 IMPRESSION: 1. The intrapelvic abscess adjacent to the sigmoid colon seen on the previous exam is slightly larger on today's study. 2. Perirectal pigtail drainage catheter in the lower pelvis is unchanged with no evidence of recurrent abscess in this region. 3. Dilated proximal small bowel loops raise concern for ileus, possibly related to distal small bowel inflammation from the adjacent intrapelvic abscess. No focal transition point is identified to indicate high grade obstruction. 4. Perihepatic ascites along the inferior margin of the liver appears stable. D/ / Leodan Perez MD / Leodan Perez MD Interpreting Provider: Leodan Perez MD - Imaging EKG: image reviewed (102bpm STach) Anesthesia Exam Vital Signs Temp Pulse Resp BP Pulse Ox 11/03/17 22:10 16 92 11/03/17 20:17 98.4 F 110 16 142/87 97 11/03/17 15:55 18 93 11/03/17 15:40 97.9 F 100 16 136/79 95 11/03/17 10:16 18 95 11/03/17 07:22 97.9 F 102 18 130/74 95 11/03/17 04:16 102 17 139/84 96 Intake and Output 11/03/17 11/03/17 11/04/17 15:59 23:59 07:59 Intake Total 720 / 720 220 / 220 Output Total 1300 / 1300 0 / 0 Balance -580 / -580 220 / 220 Intake: IV Fluids 100 / 100 Flagyl Premix 500 MG/100 ML 500 100 / 100 mg In 100 ml @ 100 mls/hr IVPB Q8HR [facility] Rx#:[id number] Oral 720 / 720 120 / 120 Output: Urine 1300 / 1300 Wound Drainage 0 / 0 Right Lower Lateral Back 0 / 0 Other: Meal Lunch Dinner Percent of Meal Consumed 100% 100% Stool Size Moderate Stool Consistency soft Stool Color Brown Height: 6'1 Weight: 237# BMI = 31 NPO (# of Hours): MNOc - HEENT Pupil (Motor): Pupils equal, EOMI Mallampati: III Teeth: Normal Oral Opening: Greater than 3 - [employer] LOC: Oriented [employer] Motor: Normal RUE, Normal LUE, Normal RLE, Normal LLE, Normal Face [employer] Sensory: Normal: RUE, LUE, RLE, LLE, Face - Cardiac Rhythm: Regular Murmur: None - Pulmonary Breath Sounds: bilateral Clear Respiratory Effort: Symmetrical Anesthesia Assess/Plan ASA Score: 3 (Smoker, EtOH, Sepsis/perfed divertic) Modified [place] Scale for Level of Consciousness: Cooperative, oriented, and tranquil Anesthetic Plan: General, Regional Monitoring Plan: Standard Monitors Recovery Plan: PACU
[2017-11-04 03:22] LABS: BUN/Creatinine Ratio 18 (6-26); Blood Urea Nitrogen 15 mg/dL (6-20); Carbon Dioxide 27 mEq/L (23-29); Chloride 99 mEq/L (98-107); Glucose 102 mg/dL (70-105); Osmolality,Calculated 273 (280-300); Potassium 3.8 mEq/L (3.5-5.1); Sodium 131 mEq/L (136-145); eGFR For African Americans > 60 (> 60); eGFR For Non-African Americans > 60 (> 60)
[2017-11-04] MEDS: Ipratropium/Albuterol Neb 3 ML IH SCH ×4 (04:10→22:22)
[2017-11-04 07:57] LABS: Basophils % 0.8 %; Hemoglobin 14.6 g/dL (12.9-16.9)
[2017-11-04 07:58] LABS: Basophils # 0.3 K/mcL (0.0-0.2); Eosinophils # 0.3 K/mcL (0.0-0.6); Eosinophils % 0.8 %; Hematocrit 42.7 % (37.5-50.1); Immature Granulocytes % 4.3 % (0-4); Lymphocytes % 5.3 %; Mean Corpuscular HGB Conc 34.2 g/dL (31.6-35.5); Mean Corpuscular Hemoglobin 31.5 pg (28.0-33.3); Mean Corpuscular Volume 92.2 fL (83.0-100.0); Mean Platelet Volume 8.9 fL (9.4-12.4); Monocytes # 2.1 K/mcL (0.0-1.3); Monocytes % 5.4 %; Neutrophils # 31.7 K/mcL (1.6-8.9); Platelet Count 468 K/mcL (140-400); Red Blood Count 4.63 M/mcL (4.19-5.50); Red Cell Distribution Width 12.8 % (11.5-14.5); Segmented Neutrophils % 83.4 %
[2017-11-04 08:17] LABS: Platelet Estimate Increased (Normal)
[2017-11-04] MEDS: Aspirin Enteric Coated 81 MG Tablet PO SCH (08:27)
[2017-11-04] MEDS: Diltiazem CD (24hr) 300 MG CAPSULE PO SCH (08:33)
[2017-11-04] MEDS: *HR* Enoxaparin 40 MG/0.4 ML SYRINGE SQ SCH (08:33)
--- NOTE | 2017-11-04 10:46 | Infectious Disease Progress No ---
Date of Encounter: 11/04/17 Time of Encounter: 10:44 - Assessment and Plan (1) Leukocytosis, unspecified Current Visit: Yes Status: Acute Likely secondary to infectious process. WBC improved, but still very elevated. Hem/Onc consulted and believe this is likely secondary to infectious process. Continue to trend. Qualifiers: Leukocytosis type: unspecified Qualified Code(s): D72.829 - Elevated white blood cell count, unspecified (2) Diverticulitis of colon with perforation Current Visit: Yes Status: Acute Severe sigmoid diverticulitis with perforation noted on CT scan 10/24/17. Repeat CT scan on 10/27/17 showed improvement in free air, but a new developing abscess was noted within the pelvis. Status post drain placement 10/27/17. Culture grew E. coli and. S. anginosus. Repeat CT scan 11/02/17 showed resolution of the initial abscess, but also showed worsening of second abscess. Discussed with Dr. Dinh with IR and reviewed CT. Concerned that there are actually multiple small abscesses within the abdomen that are not able to be drained percutaneously. Also a larger 5cm x 7cm fluid collection along the liver that's concerning for abscess as well. Clinically, the patient looks great, but the large abscess on the liver is concerning. Case discussed with Dr. Hernandez. Planning on taking the patient to the OR for abdominal washout today due to the multiple intra-abdominal abscesses. Continue Rocephin 2 grams IV daily. Continue flagyl 500mg TID IV. Continue fluconazole 400mg IV daily. Duration of treatment depends on the clinical picture. Monitor renal and liver function and dose-adjust antibiotics. Qualifiers: Diverticulitis bleeding: without bleeding Qualified Code(s): K57.20 - Diverticulitis of large intestine with perforation and abscess without bleeding (3) Bilateral pleural effusion Current Visit: Yes Status: Acute Status post paracentesis on 10/31/17. Appears exudative per Light's Criteria, but gram stain and culture are negative. Low index of suspicion that this is infected. Continue to monitor closely. (4) SOB (shortness of breath) Current Visit: Yes Status: Resolved Likely secondary to pleural effusions. Resolved. (5) Acute respiratory failure with hypoxia Current Visit: Yes Status: Resolved Secondary to bilateral pleural effusions. Resolved. (6) Compression atelectasis Current Visit: Yes Status: Acute (7) Atrial fibrillation with RVR Current Visit: Yes Status: Resolved Likely secondary to infectious process. Still tachycardic, but improved and in sinus rhythm. Management per cardiology recommendations and the primary team. - Subjective Interval history: Patient seen and examined. No acute events noted overnight. Patient sitting up in bed. Surgery planned for later today. Has no complaints. States he feels great. Denies fevers, chills, or rigors. Denies chest pain, shortness of breath , or cough. Denies nausea, vomiting, or diarrhea. Denies abdominal pain, urinary complaints, or appetite changes. Denies oral thrush or skin lesions. Infect Dis PN-Objective Data - Labs CBC & Chem 7: 11/04/17 07:46 11/04/17 02:41 Labs: Laboratory Results - last 24 hr 11/03/17 11/04/17 11/04/17 10:11 02:41 07:46 WBC 38.0 H* RBC 4.63 Hgb 14.6 Hct 42.7 MCV 92.2 MCH 31.5 MCHC 34.2 RDW 12.8 Plt Count 468 H MPV 8.9 L Immature Gran % 4.3 H Seg Neutrophils % 83.4 Lymphocytes % 5.3 Monocytes % 5.4 Eosinophils % 0.8 Basophils % 0.8 Neutrophils # 31.7 H Lymphocytes # 2.0 Monocytes # 2.1 H Eosinophils # 0.3 Basophils # 0.3 H Platelet Estimate Increased H Sodium 131 L Potassium 3.8 Chloride 99 Carbon Dioxide 27 BUN 15 Creatinine 0.85 Est GFR ( Amer) > 60 Est GFR (Non-Af Amer) > 60 BUN/Creatinine Ratio 18 Glucose 102 Calculated Osmolality 273 L Calcium 8.0 L Total Bilirubin 0.7 Direct Bilirubin 0.1 Indirect Bilirubin 0.6 AST 24 ALT 43 Alkaline Phosphatase 154 H Serum Total Protein 6.0 L Albumin 3.0 L Globulin 3.0 Albumin/Globulin Ratio 1.0 L Cultures: Cultures 11/01/17 10:00 Body Fluid Culture - Preliminary Pleural Fluid 11/02/17 14:15 Catheter Tip Culture - Preliminary Intravenous or Arterial Cath No growth in 24 hours. 11/01/17 10:00 Acid Fast Stain - Final Pleural Fluid 10/27/17 15:42 Blood Culture - Final Peripheral Venipuncture No growth. 10/27/17 14:18 Blood Culture - Final Peripheral Venipuncture No growth. 10/27/17 22:32 Anaerobic Culture - Final Aspirate No anaerobes were recovered. 10/27/17 22:32 Body Fluid Culture - Final Other-Specify in Comments Escherichia coli Streptococcus anginosus 10/27/17 20:00 Sputum Culture - Final Sputum Serology 11/01/17 11/01/17 Range/Units 09:45 09:45 Fluid LDH 497 (No Ref Range) Units/L Pleural Fluid Volume 850.0 mL Pleural Appearance Cloudy A (Clear) Pleural pH 8.00 (No Ref Range) pH Units Pleural RBC 0.013 H (0.000 - 0.002) M/mcL Pleural Tot Nuc Cell 4707 H (0-1000) TNC/mcL Pleural Neutrophils 64.3 % Pleural Band Neuts TNP Pleural Eosinophils 2.4 % Pleural Basophils TNP Pleural Lymphocytes % 9.5 % Pleural Monocytes % TNP Pleural Other Cells % 23.8 % Pleural Total Protein 3.4 (No Ref Range) g/dL Pleural Albumin 2.0 (No Ref Range) g/dL Pleural LDH 498 (No Ref Range) Units/L Pleural Glucose 123 (No Ref Range) mg/dL Pleural Amylase 26 (No Ref Range) Units/L Pleural Cholesterol 67 (No Ref Range) mg/dL Pleural Triglycerides 52 (No Ref Range) mg/dL Exam - Constitutional Vitals: Temp Pulse Resp BP Pulse Ox 98.1 F 109 16 128/64 94 11/04/17 08:04 11/04/17 08:04 11/04/17 08:04 11/04/17 08:04 11/04/17 09:03 General appearance: average body habitus, cooperative, no acute distress - Head Head exam: Present: atraumatic, normal inspection, normocephalic - Eye Eye exam: Present: EOMI, normal appearance, PERRL Pupils: Present: normal accommodation - ENT ENT exam: Present: mucous membranes moist - Neck Neck exam: Present: normal inspection - Respiratory Respiratory exam: Present: CTAB. Absent: rales, respiratory distress, rhonchi, wheezes - Cardiovascular Cardiovascular exam: Present: +S1, +S2, tachycardia. Absent: irregular rhythm - GI/Abdominal GI/Abdominal exam: Present: normal bowel sounds, soft. Absent: distended, tenderness Additional comments: Pelvic abscess drain with no drainage noted in the collection bulb. - Extremities Exam Extremities exam: Present: normal inspection, pedal edema (Trace BLE). Absent: joint swelling, tenderness - Neurological Exam Neurological exam: Present: alert, oriented X3, no focal deficits - Psychiatric Psychiatric exam: Present: normal affect, normal mood - Skin Skin exam: Present: dry, intact, normal color, warm - VTE Documentation of Mechanical Device: Intermittent pneumatic compression device Consult Discharge Plan - Plan Referrals: Manuel Webster MD [Partnered Physician] - 11/08/17 2:45 pm - Attending Attestation I examined this patient and my medical decision-making was reviewed with the Resident Physician. I agree with the documented findings, disposition and treatment plan as described except to the extent set forth below. Patient was a little bit anxious for surgery. He is nothing by mouth. Plan for surgery is unknown. With appreciate sending Intra-Op cultures are again for routine, anaerobic and fungal. Continue current antibiotic regimen for now We'll continue to follow.
[2017-11-04] MEDS ORDERED: Furosemide 20 MG/2 ML VIAL IVP STA (13:08)
--- NOTE | 2017-11-04 17:22 | General Surgery Progress Note ---
Date of Encounter: 11/04/17 Time of Encounter: 07:15 - Assessment and Plan (1) Diverticulitis of colon with perforation Current Visit: Yes Status: Acute 42M with hinchey class II diverticulitis; multiple abscess pockets; plan for OR today OR for lap peritoneal lavage Qualifiers: Diverticulitis bleeding: without bleeding Qualified Code(s): K57.20 - Diverticulitis of large intestine with perforation and abscess without bleeding Subjective Patient reports: no new complaints, feels better, tolerating liquids well, tolerating a regular diet, voiding w/o difficulty, flatus, bowel movement, afebrile Objective Vital Signs - Last 8 Hours Temp Pulse Resp BP Pulse Ox 11/04/17 15:55 99.1 F 96 16 127/72 96 11/04/17 11:51 98.4 F 102 17 121/91 93 11/04/17 11:45 20 93 Intake and Output 11/04/17 11/04/17 11/04/17 07:59 15:59 23:59 Intake Total 100 / 100 300 / 300 Output Total 1300 / 1300 0 / 0 0 / 0 Balance -1200 / -1200 300 / 300 0 / 0 Intake: IV Fluids 100 / 100 300 / 300 0.9 % Sodium Chloride 1,000 ML 300 / 300 @ 125 mls/hr IVC .Q8H [facility] Rx#: [id number] Flagyl Premix 500 MG/100 ML 500 100 / 100 mg In 100 ml @ 100 mls/hr IVPB Q8HR [facility] Rx#:[id number] Output: Urine 1300 / 1300 Wound Drainage 0 / 0 0 / 0 0 / 0 Right Lower Lateral Back 0 / 0 0 / 0 0 / 0 Other: Meal npo - General physical appearance well developed, no distress - Respiratory normal expansion, normal respiratory effort - Cardiovascular Cardiovascular exam: Present: RRR - Abdomen Abdomen: Present: soft, non tender - Neurologic CN 2-12 grossly intact - Psychiatric oriented to time, oriented to person, oriented to place - Labs 11/04/17 07:46 11/04/17 02:41 Diabetes panel 11/04/17 Range/Units 02:41 Sodium 131 L (136-145) mEq/L Potassium 3.8 (3.5-5.1) mEq/L Chloride 99 (98-107) mEq/L Carbon Dioxide 27 (23-29) mEq/L BUN 15 (6-20) mg/dL Creatinine 0.85 (0.70-1.30) mg/dL Glucose 102 (70-105) mg/dL Calcium 8.0 L (8.6-10.3) mg/dL Calcium panel 11/04/17 Range/Units 02:41 Calcium 8.0 L (8.6-10.3) mg/dL Pituitary panel 11/04/17 Range/Units 02:41 Sodium 131 L (136-145) mEq/L Potassium 3.8 (3.5-5.1) mEq/L Chloride 99 (98-107) mEq/L Carbon Dioxide 27 (23-29) mEq/L BUN 15 (6-20) mg/dL Creatinine 0.85 (0.70-1.30) mg/dL Glucose 102 (70-105) mg/dL Calcium 8.0 L (8.6-10.3) mg/dL Adrenal panel 11/04/17 Range/Units 02:41 Sodium 131 L (136-145) mEq/L Potassium 3.8 (3.5-5.1) mEq/L Chloride 99 (98-107) mEq/L Carbon Dioxide 27 (23-29) mEq/L BUN 15 (6-20) mg/dL Creatinine 0.85 (0.70-1.30) mg/dL Glucose 102 (70-105) mg/dL Calcium 8.0 L (8.6-10.3) mg/dL - VTE Documentation of Mechanical Device: Intermittent pneumatic compression device Consult Discharge Plan - Plan Referrals: Manuel Webster MD [Partnered Physician] - 11/08/17 2:45 pm
[2017-11-04] MEDS ORDERED: Ondansetron 4 MG/2 ML VIAL ONE (17:56)
[2017-11-04] MEDS ORDERED: Lidocaine -MPF 2% 2 ML VIAL ONE (17:56)
[2017-11-04] MEDS ORDERED: *HR* Propofol 200 MG/20 ML VIAL IVP ONE (17:56)
[2017-11-04] MEDS ORDERED: *HR* Midazolam HCl 2 MG/2 ML VIAL ONE (17:56)
[2017-11-04] MEDS ORDERED: *HR* FentaNYL (PF) 100 MCG/2 ML VIAL ONE ×2 (17:56→18:52)
[2017-11-04] MEDS ORDERED: *HR* Rocuronium Bromide 50 MG/5 ML VIAL ONE ×2 (17:56→18:38)
[2017-11-04] MEDS ORDERED: Lidocaine -MPF 4% 5 ML AMPUL ONE (17:59)
[2017-11-04] MEDS ORDERED: Dexamethasone 4 MG/ML VIAL ONE (18:39)
[2017-11-04] MEDS ORDERED: Neostigmine Methylsulfate 3 MG/3 ML SYRINGE ONE (18:59)
[2017-11-04] MEDS ORDERED: Ondansetron 4 MG/2 ML VIAL IVP ONE (19:02)
[2017-11-04] MEDS ORDERED: *HR* Promethazine 25 MG/ML VIAL IVP PRN (19:02)
[2017-11-04] MEDS ORDERED: *HR* Labetalol 20 MG/4 ML SYRINGE IVP PRN (19:02)
[2017-11-04] MEDS ORDERED: *HR* HYDROmorphone (PF) 1 MG/ML SYRINGE IVP PRN (19:02)
[2017-11-04] MEDS ORDERED: *HR* Morphine 2 MG/ML SYRINGE IVP PRN (19:02)
[2017-11-04] MEDS ORDERED: Acetaminophen IV 1,000 MG/100 ML INFUS..BTL ONE (19:46)
[2017-11-04] MEDS ORDERED: Famotidine 20 MG/2 ML VIAL ONE (19:46)
[2017-11-04] MEDS ORDERED: *HR* HYDROmorphone 2 MG/ML SYRINGE ONE (21:22)
--- NOTE | 2017-11-04 23:48 | Anesthesia Evaluation Post Op ---
Date of Encounter: 11/04/17 Time of Encounter: 23:46 - Vital Signs Vital Signs: Vital Signs/O2 Sat/Glucose, Most Current Temp Pulse Resp BP Pulse Ox 11/04/17 23:30 95 20 120/83 95 11/04/17 23:20 97 20 125/77 94 11/04/17 23:10 97.7 F 108 20 121/69 92 - Lungs Lungs: Clear Ascult./Percussion - Airway Airway: Non-obstructed - Cardiovascular Baseline Rhythm - Mental Status Mental Status: Alert & Oriented, Answers Appropriately - Pain Pain Scale: 0 Pain Scale used: Numeric (1 - 10) - Nausea Vomiting Nausea Vomiting: Not Present - Hydration Hydration: NPO, Has not voided - Discharge PostOp Status: Transfer Patient to floor Anes Supervising Prov Stmt: Pt seen/evaluated, VSS And pt has met criteria for discharge to floor. - MD Brianna
[2017-11-05] MEDS ORDERED: Naloxone 0.4 MG/ML INJ IVP PRN (00:26)
[2017-11-05] MEDS ORDERED: Ondansetron 4 MG/2 ML VIAL IVP PRN (00:26)
[2017-11-05] MEDS ORDERED: Ipratropium/Albuterol Neb 3 ML IH PRN (00:26)
[2017-11-05] MEDS ORDERED: *HR* Metoprolol 5 MG/5 ML VIAL IVP PRN (00:26)
[2017-11-05] MEDS ORDERED: D5% in 0.9% NACL 1,000 ML IVC SCH (00:26)
[2017-11-05] MEDS ORDERED: 0.9 % Sodium Chloride 1,000 ML ONE (01:27)
[2017-11-05] MEDS: *HR* Morphine 30 MG/ 30 ML PCA IVC PRN ×3 (01:53→23:40)
[2017-11-05] MEDS: *HR* Enoxaparin 40 MG/0.4 ML SYRINGE SQ SCH (06:19)
[2017-11-05] MEDS: MetroNIDAZOLE 500 MG/100 ML 500 MG/100 ML BAG IVPB SCH ×3 (10:37→23:41)
--- NOTE | 2017-11-05 11:23 | General Surgery Progress Note ---
<Garrett Ramey - Last Filed: 11/05/17 11:21> Date of Encounter: 11/05/17 Time of Encounter: 11:21 - Assessment and Plan (1) Diverticulitis of colon with perforation Current Visit: Yes Status: Acute POD #1 - bowel wash 2/2 hinchey class II diverticulitis complicated by afib with RVR. Patient remains stable and without pain. PRIYA drains are producing serosanguinous fluid. 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 Pleural gram stain and cultures - negative. Per management of pulm (3) Atrial fibrillation with RVR Current Visit: Yes Status: Resolved AF w/ RVR. currently rate controlled. per management of cardiology Subjective Patient reports: feels better, still having pain, no flatus, no bowel movement, afebrile Objective Vital Signs - Last 8 Hours Temp Pulse Resp BP Pulse Ox 11/05/17 08:12 97.8 F 94 14 127/80 93 11/05/17 04:00 98.1 F 110 16 126/81 93 Intake and Output 11/04/17 11/05/17 11/05/17 23:59 07:59 15:59 Intake Total 0 / 0 Output Total 270 / 270 80 / 80 720 / 720 Balance -270 / -270 -79 / -79 -720 / -720 Intake: IV Fluids 0.9 % Sodium Chloride 1,000 ML As .ROUTE .[facility] Rx#: [id number] Oral 0 / 0 0 / 0 Output: Urine 0 / 0 700 / 700 Gastric Tube Lavage Amount 0 / 0 0 / 0 Right Nare 0 / 0 0 / 0 Estimated Blood Loss 200 / 200 Wound Drainage 70 / 70 80 / 80 20 / 20 L Lower ABD (3) 0 / 0 0 / 0 Medial Lower ABD (2) 50 / 50 10 / 10 R Lower ABD (1) 30 / 30 10 / 10 Right Lower Lateral Back 0 / 0 Other: Meal Breakfast Percent of Meal Consumed 0% Weight 108.8 kg Blood Glucose* 131 Patient Weight 11/05/17 23:59 Weight 108.8 kg - General physical appearance well developed, well nourished, no distress, moderate pain - Eyes normal ocular movement - ENT normal mucosa, no hearing loss, no congestion - Respiratory normal expansion, normal respiratory effort, clear to percussion, clear to auscultation - Cardiovascular Cardiovascular exam: Present: RRR - Abdomen Abdomen: Present: bowel sounds present, soft, non tender. Absent: distended, tender, guarding, rebound Additional Comments: 3 PRIYA drains - 0 fluid from L, 30 from Middle, 20 from Right - all serosanguinous fluid - Incision Incision: Present: clean and dry, intact - Integumentary no rash, no growths, no abnormal pigmentation - Psychiatric oriented to time, oriented to person, oriented to place, speech is normal, memory intact - Labs 11/04/17 07:46 11/04/17 02:41 - VTE Documentation of Mechanical Device: Intermittent pneumatic compression device Consult Discharge Plan - Plan Referrals: Manuel Webster MD [Partnered Physician] - 11/08/17 2:45 pm <Angel Hernandez - Last Filed: 11/05/17 11:50> Date of Encounter: 11/05/17 - Assessment and Plan (1) Diverticulitis of colon with perforation Current Visit: Yes Status: Acute Qualifiers: Diverticulitis bleeding: without bleeding Qualified Code(s): K57.20 - Diverticulitis of large intestine with perforation and abscess without bleeding Objective Vital Signs - Last 8 Hours Temp Pulse Resp BP Pulse Ox 11/05/17 08:12 97.8 F 94 14 127/80 93 11/05/17 04:00 98.1 F 110 16 126/81 93 Intake and Output 11/04/17 11/05/17 11/05/17 23:59 07:59 15:59 Intake Total 0 / 0 Output Total 270 / 270 80 / 80 720 / 720 Balance -270 / -270 -79 / -79 -720 / -720 Intake: IV Fluids 0.9 % Sodium Chloride 1,000 ML As .ROUTE .[facility] Rx#: [id number] Oral 0 / 0 0 / 0 Output: Urine 0 / 0 700 / 700 Gastric Tube Lavage Amount 0 / 0 0 / 0 Right Nare 0 / 0 0 / 0 Estimated Blood Loss 200 / 200 Wound Drainage 70 / 70 80 / 80 20 / 20 L Lower ABD (3) 0 / 0 0 / 0 Medial Lower ABD (2) 50 / 50 10 / 10 R Lower ABD (1) 30 / 30 10 / 10 Right Lower Lateral Back 0 / 0 Other: Meal Breakfast Percent of Meal Consumed 0% Weight 108.8 kg Blood Glucose* 131 Patient Weight 11/05/17 23:59 Weight 108.8 kg - Labs 11/05/17 11:32 11/04/17 02:41 - Attending Attestation I have personally seen and examined the patient. I have reviewed pertinent labs , imaging, progress notes, including this one. I agree with the above assessment and plan and wish to include the following... 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 will cont supportive care today, encourage ambulation and pulm toileting;
[2017-11-05 11:42] LABS: Mean Platelet Volume 8.9 fL (9.4-12.4); Monocytes % 4.8 %
[2017-11-05 11:43] LABS: Basophils # 0.1 K/mcL (0.0-0.2); Basophils % 0.1 %; Hematocrit 44.2 % (37.5-50.1); Hemoglobin 14.8 g/dL (12.9-16.9); Immature Granulocytes % 3.6 % (0-4); Lymphocytes # 1.3 K/mcL (0.6-4.6); Lymphocytes % 2.6 %; Mean Corpuscular HGB Conc 33.5 g/dL (31.6-35.5); Mean Corpuscular Volume 92.7 fL (83.0-100.0); Monocytes # 2.3 K/mcL (0.0-1.3); Platelet Count 554 K/mcL (140-400); Red Blood Count 4.77 M/mcL (4.19-5.50); Red Cell Distribution Width 12.8 % (11.5-14.5); Segmented Neutrophils % 88.9 %
[2017-11-05 11:44] LABS: Neutrophils # 42.8 K/mcL (1.6-8.9)
--- NOTE | 2017-11-05 11:52 | Operative Note ---
Date of procedure: 11/04/17 Pre-op diagnosis: diverticulitis Post-op diagnosis: same Procedure: laparoscopc converted to open abdominal washout Anesthesia: GETA Local Anesthetics: 0.5% Sensorcaine HCL SubQ (cc) Surgeon: Angel Hernandez Was there an child center assistant present: No Estimated blood loss (cc): 200 Specimen: peritoneal lavage Condition: stable Disposition: PACU Procedure in Detail: the patient was brought into the operating room suite. Mechanical dvt prophylaxis was placed. The patient was in the supine position. He underwent smooth induction of anesthesia. Prepped and draped in the usual fashion. Preoperative antibiotics were already given. A timeout was held identifying correct patient, pathology, procedure, and physician. Incision to conversion I started by creating a 10mm supraumbilical incision. Via open jenn technique I did enter into the abdomen. I inserted the camera port. Immediately upon entry there was evidence of significant inflammation in all areas of the abdomen. There was no obvious purulent material, but there was dilated small bowel adherent to other loops of bowel and the abdominal wall. There was difficulty establishing sufficient insuffluation. I made 3 5mm incision one in the left and riht abdomen and one in the suprapubic region. I had 4 bags of 3L of saline impregnated with zosyn and I began in the right upper quadrant and then went to the right lower quadrant. There was very little fluid actually getting between the loops of bowel after 6 L of fluids inserted. I broke scrub and discussed with the my findings. In addition there was difficulty maintaining continued insufflation. It was at this time that I elected to open the abdomen. Washout to closure I opened the incision, dissected through the subcutaneous fat and entered the abdomen. I suctioned out the six Liters of fluid within the abdomen. I then irrigated the rest of the abdomen, RUQ, LLQ, RLQ and LUQ wit the remaining 6 L of fluid. I spent appropriately 45 minutes lysing adhesions, breaking up interloop adhesions, and lysing adhesions between the small bowel and the abdominal wall. Due to the adhesions to the abdominal wall there was a predominant loop of dialted small bowel. After lysing, it did decompress. I was able to position the NG tube appropriately in the stomach. It should be stated that in the RUQ there was a moderate amount of purulent material that was suctioned. A sample of the lavaged fluid was sent for culture. In addition there were several pockets of purulent drainage encountered. i was able to open these pockets. There were small serosal tears, but nothing requiring repair. I placed three 19fr josie drains: one from the right abdominal incision that tracked above the liver and within the liver bed, another in the suprapubic incision that was placed in the pelvis, and a third in the left abdominal abdomen that tracked in the middle of his abdomen. I then closed the abdomen in a running fashion with a looped PDS. I then used 3- 0 vicryl in an interrupted fashion to reapproximate the deep dermal layer and cheryl to close the skin. The patient tolerated the procedure well and was escorted back to PACU in stable condition.
[2017-11-05 11:57] LABS: Alanine Aminotransferase 27 Units/L (7-52); Albumin 2.4 g/dL (3.5-5.7); Albumin/Globulin Ratio 0.9 (1.1-2.2); Alkaline Phosphatase 93 Units/L (34-104); Aspartate Amino Transferase 19 Units/L (13-39); BUN/Creatinine Ratio 20 (6-26); Bilirubin,Total 0.8 mg/dL (0.3-1.0); Blood Urea Nitrogen 15 mg/dL (6-20); Calcium 7.4 mg/dL (8.6-10.3); Carbon Dioxide 21 mEq/L (23-29); Chloride 109 mEq/L (98-107); Globulin 2.6 g/dL (2.4-3.5); Glucose 148 mg/dL (70-105); Osmolality,Calculated 284 (280-300); Potassium 4.3 mEq/L (3.5-5.1); Sodium 135 mEq/L (136-145); eGFR For African Americans > 60 (> 60); eGFR For Non-African Americans > 60 (> 60)
[2017-11-05] MEDS ORDERED: D5% in Lactated Ringers 1,000 ML IVC SCH (12:45)
[2017-11-05] MEDS: D5% in Lactated Ringers 1,000 ML IVC SCH (14:12)
[2017-11-05] MEDS: cefTRIAXone 2,000 MG in Water for inj. (sterile) 20 ML 20 ML IVP SCH (16:02)
[2017-11-05] MEDS ORDERED: 0.9 % Sodium Chloride 1,000 ML IVC ONE (17:01)
[2017-11-05] MEDS: Chloraseptic Spray 177 ML BOTTLE MM PRN ×2 (18:06→23:40)
[2017-11-06 04:02] LABS: Basophils # 0.1 K/mcL (0.0-0.2); Basophils % 0.2 %; Eosinophils # 0.1 K/mcL (0.0-0.6); Eosinophils % 0.3 %; Hematocrit 42.2 % (37.5-50.1); Hemoglobin 13.8 g/dL (12.9-16.9); Immature Granulocytes % 3.9 % (0-4); Lymphocytes # 1.8 K/mcL (0.6-4.6); Lymphocytes % 4.6 %; Mean Corpuscular HGB Conc 32.7 g/dL (31.6-35.5); Mean Corpuscular Hemoglobin 30.9 pg (28.0-33.3); Mean Corpuscular Volume 94.6 fL (83.0-100.0); Monocytes # 2.4 K/mcL (0.0-1.3); Monocytes % 6.1 %; Neutrophils # 33.6 K/mcL (1.6-8.9); Platelet Count 556 K/mcL (140-400); Red Blood Count 4.46 M/mcL (4.19-5.50); Red Cell Distribution Width 12.9 % (11.5-14.5); Segmented Neutrophils % 84.9 %
[2017-11-06 04:16] LABS: Alanine Aminotransferase 23 Units/L (7-52); Albumin 2.5 g/dL (3.5-5.7); Alkaline Phosphatase 80 Units/L (34-104); Aspartate Amino Transferase 16 Units/L (13-39); BUN/Creatinine Ratio 20 (6-26); Bilirubin,Total 0.6 mg/dL (0.3-1.0); Blood Urea Nitrogen 14 mg/dL (6-20); Calcium 7.6 mg/dL (8.6-10.3); Carbon Dioxide 23 mEq/L (23-29); Chloride 109 mEq/L (98-107); Globulin 2.6 g/dL (2.4-3.5); Glucose 129 mg/dL (70-105); Osmolality,Calculated 288 (280-300); Potassium 4.3 mEq/L (3.5-5.1); Sodium 138 mEq/L (136-145); Total Protein 5.1 g/dL (6.4-8.9); eGFR For African Americans > 60 (> 60); eGFR For Non-African Americans > 60 (> 60)
[2017-11-06 04:17] LABS: Magnesium 2.1 mg/dL (1.6-2.6); Phosphorous 2.4 mg/dL (2.7-4.5)
[2017-11-06 04:29] LABS: Platelet Estimate Increased (Normal)
[2017-11-06] MEDS: D5% in Lactated Ringers 1,000 ML IVC SCH ×2 (06:45→16:07)
[2017-11-06] MEDS: *HR* Enoxaparin 40 MG/0.4 ML SYRINGE SQ SCH (06:47)
[2017-11-06] MEDS: MetroNIDAZOLE 500 MG/100 ML 500 MG/100 ML BAG IVPB SCH ×2 (08:43→16:05)
[2017-11-06] MEDS: *HR* Morphine 30 MG/ 30 ML PCA IVC PRN (08:43)
[2017-11-06] MEDS ORDERED: Ringers Solution, Lactated 2,000 ML IVC ONE (10:09)
[2017-11-06] MEDS ORDERED: D5% in Lactated Ringers 1,000 ML IVC SCH (10:12)
--- NOTE | 2017-11-06 11:20 | General Surgery Progress Note ---
Date of Encounter: 11/06/17 Time of Encounter: 11:16 - Assessment and Plan (1) Diverticulitis of colon with perforation Current Visit: Yes Status: Acute 42M with hinchey class II diverticulitis; multiple abscess pockets; POD #2 s/p abdominal washout; intermittently tachycardic; keep nPO, cont NG tube; await return of bowel function cont abx keep drains: plan for d/c drain 3 in AM OOBTC; ambulate as tolerated cont current pain regimen patient progressing as expected draw cbc in AM Qualifiers: Diverticulitis bleeding: without bleeding Qualified Code(s): K57.20 - Diverticulitis of large intestine with perforation and abscess without bleeding Subjective Patient reports: no new complaints, feels better, still having pain, pain is less, no flatus, no bowel movement, afebrile, other (intermittently tachycardic) Objective Vital Signs - Last 8 Hours Temp Pulse Resp BP Pulse Ox 11/06/17 07:40 98.0 F 97 14 136/90 93 11/06/17 05:27 99.2 F 120 15 130/84 93 Intake and Output 11/05/17 11/06/17 11/06/17 23:59 07:59 15:59 Intake Total 100 / 100 1100 / 1100 0 / 0 Output Total 705 / 705 500 / 500 Balance -605 / -605 600 / 600 0 / 0 Intake: IV Fluids 100 / 100 1100 / 1100 D5% & Lact. Ringers 1000 Ml Bag 1000 / 1000 1,000 ML @ 75 mls/hr IVC . [id number] REJI Rx#:[id number] Flagyl Premix 500 MG/100 ML 500 100 / 100 100 / 100 mg In 100 ml @ 100 mls/hr IVPB Q8HR REJI Rx#:[id number] Oral 0 / 0 0 / 0 Output: Urine 300 / 300 300 / 300 Gastric Tube Lavage Amount 350 / 350 200 / 200 Right Nare 350 / 350 200 / 200 Wound Drainage 55 / 55 L Lower ABD (3) 0 / 0 Medial Lower ABD (2) 25 / 25 R Lower ABD (1) 30 / 30 Other: Meal Dinner Breakfast Percent of Meal Consumed 0% 0% # Voids 0 Weight 110.5 kg Blood Glucose* 117 106 - General physical appearance well developed, no distress - Respiratory normal expansion, normal respiratory effort - Cardiovascular Cardiovascular exam: Present: RRR - Abdomen Abdomen: Present: soft, tender (appropriately tender at midline) - Neurologic CN 2-12 grossly intact - Labs 11/06/17 03:34 11/06/17 03:34 Diabetes panel 11/05/17 11/06/17 Range/Units 11:32 03:34 Sodium 135 L 138 (136-145) mEq/L Potassium 4.3 4.3 (3.5-5.1) mEq/L Chloride 109 H 109 H (98-107) mEq/L Carbon Dioxide 21 L 23 (23-29) mEq/L BUN 15 14 (6-20) mg/dL Creatinine 0.76 0.70 (0.70-1.30) mg/dL Glucose 148 H 129 H (70-105) mg/dL Calcium 7.4 L 7.6 L (8.6-10.3) mg/dL AST 19 16 (13-39) Units/L ALT 27 23 (7-52) Units/L Alkaline Phosphatase 93 80 (34-104) Units/L Albumin 2.4 L 2.5 L (3.5-5.7) g/dL Calcium panel 11/05/17 11/06/17 11/06/17 Range/Units 11:32 03:34 03:34 Calcium 7.4 L 7.6 L (8.6-10.3) mg/dL Phosphorus 2.4 L (2.7-4.5) mg/dL Albumin 2.4 L 2.5 L (3.5-5.7) g/dL Pituitary panel 11/05/17 11/06/17 Range/Units 11:32 03:34 Sodium 135 L 138 (136-145) mEq/L Potassium 4.3 4.3 (3.5-5.1) mEq/L Chloride 109 H 109 H (98-107) mEq/L Carbon Dioxide 21 L 23 (23-29) mEq/L BUN 15 14 (6-20) mg/dL Creatinine 0.76 0.70 (0.70-1.30) mg/dL Glucose 148 H 129 H (70-105) mg/dL Calcium 7.4 L 7.6 L (8.6-10.3) mg/dL Adrenal panel 11/05/17 11/06/17 Range/Units 11:32 03:34 Sodium 135 L 138 (136-145) mEq/L Potassium 4.3 4.3 (3.5-5.1) mEq/L Chloride 109 H 109 H (98-107) mEq/L Carbon Dioxide 21 L 23 (23-29) mEq/L BUN 15 14 (6-20) mg/dL Creatinine 0.76 0.70 (0.70-1.30) mg/dL Glucose 148 H 129 H (70-105) mg/dL Calcium 7.4 L 7.6 L (8.6-10.3) mg/dL Total Bilirubin 0.8 0.6 (0.3-1.0) mg/dL AST 19 16 (13-39) Units/L ALT 27 23 (7-52) Units/L Alkaline Phosphatase 93 80 (34-104) Units/L Albumin 2.4 L 2.5 L (3.5-5.7) g/dL - VTE Documentation of Mechanical Device: Intermittent pneumatic compression device Consult Discharge Plan - Plan Referrals: Manuel Webster MD [Partnered Physician] - 11/08/17 2:45 pm
[2017-11-06] MEDS: Chloraseptic Spray 177 ML BOTTLE MM PRN ×2 (12:49→18:42)
[2017-11-06] MEDS: cefTRIAXone 2,000 MG in Water for inj. (sterile) 20 ML 20 ML IVP SCH (16:05)
[2017-11-07] MEDS: MetroNIDAZOLE 500 MG/100 ML 500 MG/100 ML BAG IVPB SCH ×3 (01:02→15:38)
[2017-11-07] MEDS: D5% in Lactated Ringers 1,000 ML IVC SCH (06:09)
[2017-11-07] MEDS: *HR* Enoxaparin 40 MG/0.4 ML SYRINGE SQ SCH (06:09)
[2017-11-07 08:37] LABS: Basophils # 0.1 K/mcL (0.0-0.2); Basophils % 0.4 %; Eosinophils # 0.1 K/mcL (0.0-0.6); Eosinophils % 0.5 %; Hematocrit 41.1 % (37.5-50.1); Hemoglobin 13.3 g/dL (12.9-16.9); Immature Granulocytes % 1.5 % (0-4); Lymphocytes # 1.2 K/mcL (0.6-4.6); Mean Corpuscular HGB Conc 32.4 g/dL (31.6-35.5); Mean Corpuscular Hemoglobin 30.4 pg (28.0-33.3); Mean Corpuscular Volume 94.1 fL (83.0-100.0); Mean Platelet Volume 8.8 fL (9.4-12.4); Monocytes # 1.1 K/mcL (0.0-1.3); Monocytes % 5.5 %; Neutrophils # 17.2 K/mcL (1.6-8.9); Platelet Count 538 K/mcL (140-400); Red Blood Count 4.37 M/mcL (4.19-5.50); Red Cell Distribution Width 12.5 % (11.5-14.5); Segmented Neutrophils % 86.1 %
--- NOTE | 2017-11-07 09:17 | General Surgery Progress Note ---
<GualbertoLorene - Last Filed: 11/07/17 10:43> Date of Encounter: 11/07/17 Time of Encounter: 09:14 - Assessment and Plan (1) Diverticulitis of colon with perforation Current Visit: Yes Status: Acute 42M with hinchey class II diverticulitis; multiple abscess pockets; POD #3 s/p abdominal washout; remains intermittently tachycardic overnight. HR high of 109 overnight. -WBC downtrending. CBC reviewed. Cont abx -Pain Management: Has utilized 3.1 mg morphine in last 24 hours -Patient's NG output approx reviewed, pt admitted to intake of 2-3 cups of ice chips over last night and output likely 2/2 to fluid intake. Will clamp NG tube now, if output less than 301 cc over next 4-hr period, will consider discontinuing NG then -Successful Removal of Drain #3 this AM -Monitoring bowel function. Will consider liquid sips tonight. -If tolerating, plan to transition to PO Abx -Encourage ambulation, Incentive Spirometry -CBC, BMP in AM Qualifiers: Diverticulitis bleeding: without bleeding Qualified Code(s): K57.20 - Diverticulitis of large intestine with perforation and abscess without bleeding (2) DVT prophylaxis Current Visit: Yes Status: Acute Lovenox SCDs in place Subjective Patient reports: feels better, pain is less, flatus, no bowel movement, afebrile Narrative: Rates Pain 2/10. Endorses appetite. No Nausea. No vomiting. Tolerating ice chips well. Passed Flatus. No bowel movements. Pt Ambulating.Awaiting removal of NG tube. Objective Vital Signs - Last 8 Hours Temp Pulse Resp BP Pulse Ox 11/07/17 06:28 99.1 F 106 16 143/90 90 11/07/17 03:38 97.8 F 109 17 149/92 92 Intake and Output 11/06/17 11/07/17 11/07/17 23:59 07:59 15:59 Intake Total 220 / 220 1100 / 1100 Output Total 2105 / 2105 3830 / 3830 350 / 350 Balance -1885 / -1885 -2730 / -2730 -350 / -350 Intake: IV Fluids 100 / 100 1100 / 1100 D5% & Lact. Ringers 1000 Ml Bag 1000 / 1000 1,000 ML @ 75 mls/hr IVC . [id number] REJI Rx#:[id number] Flagyl Premix 500 MG/100 ML 500 100 / 100 100 / 100 mg In 100 ml @ 100 mls/hr IVPB Q8HR REJI Rx#:[id number] Oral 120 / 120 0 / 0 Output: Urine 775 / 775 700 / 700 350 / 350 Gastric Tube Lavage Amount 1300 / 1300 3100 / 3100 Right Nare 1300 / 1300 3100 / 3100 Wound Drainage 30 / 30 30 / 30 L Lower ABD (3) 0 / 0 0 / 0 Medial Lower ABD (2) R Lower ABD (1) Other: Meal Dinner Percent of Meal Consumed 0% Weight 103.2 kg Patient Weight 11/07/17 23:59 Weight 103.2 kg - General physical appearance well developed, no distress - Eyes normal ocular movement - Respiratory normal expansion, normal respiratory effort, clear to auscultation - Cardiovascular Cardiovascular exam: Present: tachycardia. Absent: irregular rhythm - Abdomen Abdomen: Present: bowel sounds present, soft, non tender, tender. Absent: distended, rebound Additional Comments: Midline incision. [place] in place. No drainage and oozing. Drains in place. - Incision Incision: Present: clean and dry, intact, erythema (lower abdominal area ). Absent: draining - Psychiatric oriented to person, oriented to place, speech is normal, other (Oriented to Situation ) - Labs 11/07/17 08:18 11/07/17 08:18 Calcium panel 11/07/17 Range/Units 08:18 Phosphorus 3.0 (2.7-4.5) mg/dL - VTE Documentation of Mechanical Device: Intermittent pneumatic compression device Consult Discharge Plan - Plan Referrals: Manuel Webster MD [Partnered Physician] - 11/08/17 2:45 pm <Angel Hernandez - Last Filed: 11/07/17 11:38> Date of Encounter: 11/07/17 - Assessment and Plan (1) Diverticulitis of colon with perforation Current Visit: Yes Status: Acute Qualifiers: Diverticulitis bleeding: without bleeding Qualified Code(s): K57.20 - Diverticulitis of large intestine with perforation and abscess without bleeding Objective Vital Signs - Last 8 Hours Temp Pulse Resp BP Pulse Ox 11/07/17 10:44 99.4 F 107 16 130/80 91 11/07/17 06:28 99.1 F 106 16 143/90 90 11/07/17 03:38 97.8 F 109 17 149/92 92 Intake and Output 11/06/17 11/07/17 11/07/17 23:59 07:59 15:59 Intake Total 220 / 220 1100 / 1100 Output Total 2105 / 2105 3830 / 3830 1400 / 1400 Balance -1885 / -1885 -2730 / -2730 -1400 / -1400 Intake: IV Fluids 100 / 100 1100 / 1100 D5% & Lact. Ringers 1000 Ml Bag 1000 / 1000 1,000 ML @ 75 mls/hr IVC . [id number] REJI Rx#:[id number] Flagyl Premix 500 MG/100 ML 500 100 / 100 100 / 100 mg In 100 ml @ 100 mls/hr IVPB Q8HR REJI Rx#:[id number] Oral 120 / 120 0 / 0 Output: Urine 775 / 775 700 / 700 500 / 500 Gastric Tube Lavage Amount 1300 / 1300 3100 / 3100 900 / 900 Right Nare 1300 / 1300 3100 / 3100 900 / 900 Wound Drainage 30 / 30 30 / 30 L Lower ABD (3) 0 / 0 0 / 0 Medial Lower ABD (2) R Lower ABD (1) Other: Meal Dinner Percent of Meal Consumed 0% Weight 103.2 kg Patient Weight 11/07/17 23:59 Weight 103.2 kg - Labs 11/07/17 08:18 11/07/17 08:18 Diabetes panel 11/07/17 Range/Units 08:18 Sodium 146 H (136-145) mEq/L Potassium 3.2 L (3.5-5.1) mEq/L Chloride 102 (98-107) mEq/L Carbon Dioxide 37 H (23-29) mEq/L BUN 11 (6-20) mg/dL Creatinine 0.62 L (0.70-1.30) mg/dL Glucose 128 H (70-105) mg/dL Calcium 8.3 L (8.6-10.3) mg/dL Calcium panel 11/07/17 11/07/17 Range/Units 08:18 08:18 Calcium 8.3 L (8.6-10.3) mg/dL Phosphorus 3.0 (2.7-4.5) mg/dL Pituitary panel 11/07/17 Range/Units 08:18 Sodium 146 H (136-145) mEq/L Potassium 3.2 L (3.5-5.1) mEq/L Chloride 102 (98-107) mEq/L Carbon Dioxide 37 H (23-29) mEq/L BUN 11 (6-20) mg/dL Creatinine 0.62 L (0.70-1.30) mg/dL Glucose 128 H (70-105) mg/dL Calcium 8.3 L (8.6-10.3) mg/dL Adrenal panel 11/07/17 Range/Units 08:18 Sodium 146 H (136-145) mEq/L Potassium 3.2 L (3.5-5.1) mEq/L Chloride 102 (98-107) mEq/L Carbon Dioxide 37 H (23-29) mEq/L BUN 11 (6-20) mg/dL Creatinine 0.62 L (0.70-1.30) mg/dL Glucose 128 H (70-105) mg/dL Calcium 8.3 L (8.6-10.3) mg/dL - Attending Attestation I have personally seen and examined the patient. I have reviewed pertinent labs , imaging, progress notes, including this one. I agree with the above assessment and plan and wish to include the following... 42M POD#3 s/p abdominal washout 2/2 hinchey class II diveticulitis; sepsis resolving; afebrile; NSR, tachycardia improving; non peritoneal on exam, but is appropriately tender; slight erythema at the base of the wound, likely dependent serous drainage; WBC with signiicant drop; will plan for d/c NG tube pending residuals 4 hours after clamping; cont abx; cont to monitor wound; will remove cheryl if need; d/c drain #3; expect him to be able to tolerate a diet this evening, advancement in AM, will plans for d/c on PO antibiotics 11/08 vs ;
[2017-11-07 09:55] LABS: BUN/Creatinine Ratio 18 (6-26); Blood Urea Nitrogen 11 mg/dL (6-20); Calcium 8.3 mg/dL (8.6-10.3); Carbon Dioxide 37 mEq/L (23-29); Chloride 102 mEq/L (98-107); Glucose 128 mg/dL (70-105); Magnesium 2.3 mg/dL (1.6-2.6); Osmolality,Calculated 303 (280-300); Potassium 3.2 mEq/L (3.5-5.1); Sodium 146 mEq/L (136-145); eGFR For African Americans > 60 (> 60); eGFR For Non-African Americans > 60 (> 60)
[2017-11-07] MEDS ORDERED: D5% in Lactated Ringers 1,000 ML IVC SCH (11:39)
[2017-11-07] MEDS ORDERED: Fluconazole 100 MG TABLET PO SCH (15:00)
[2017-11-07] MEDS: cefTRIAXone 2,000 MG in Water for inj. (sterile) 20 ML 20 ML IVP SCH (15:37)
--- NOTE | 2017-11-07 16:56 | Infectious Disease Progress No ---
Date of Encounter: 11/07/17 Time of Encounter: 09:15 - Assessment and Plan (1) Leukocytosis, unspecified Current Visit: Yes Status: Acute Likely secondary to infectious process. WBC improved to 20 today. Hem/Onc consulted and believe this is likely secondary to infectious process. Continue to trend. Qualifiers: Leukocytosis type: unspecified Qualified Code(s): D72.829 - Elevated white blood cell count, unspecified (2) Diverticulitis of colon with perforation Current Visit: Yes Status: Acute Severe sigmoid diverticulitis with perforation noted on CT scan 10/24/17. Repeat CT scan on 10/27/17 showed improvement in free air, but a new developing abscess was noted within the pelvis. Status post drain placement 10/27/17. Culture grew E. coli and. S. anginosus. Repeat CT scan 11/02/17 showed resolution of the initial abscess, but also showed worsening of second abscess. Discussed with Dr. Dinh with IR and reviewed CT. Concerned that there are actually multiple small abscesses within the abdomen that are not able to be drained percutaneously. Also a larger 5cm x 7cm fluid collection along the liver that's concerning for abscess as well. Status post lab converted to open peritoneal washout on Tuesday. Peritoneal fluid culture obtained and negative. Continue Rocephin 2 grams IV daily. Continue flagyl 500mg TID IV. Restart fluconazole 400mg PO daily. Duration of treatment depends on the clinical picture. Monitor renal and liver function and dose-adjust antibiotics. Qualifiers: Diverticulitis bleeding: without bleeding Qualified Code(s): K57.20 - Diverticulitis of large intestine with perforation and abscess without bleeding (3) Bilateral pleural effusion Current Visit: Yes Status: Acute Status post paracentesis on 10/31/17. Appears exudative per Light's Criteria, but gram stain and culture are negative. Low index of suspicion that this is infected. Continue to monitor closely. (4) SOB (shortness of breath) Current Visit: Yes Status: Resolved Likely secondary to pleural effusions. Resolved. (5) Acute respiratory failure with hypoxia Current Visit: Yes Status: Resolved Secondary to bilateral pleural effusions. Resolved. (6) Compression atelectasis Current Visit: Yes Status: Acute (7) Atrial fibrillation with RVR Current Visit: Yes Status: Resolved Likely secondary to infectious process. Still tachycardic, but improved and in sinus rhythm. Management per cardiology recommendations and the primary team. - Subjective Interval history: Patient seen and examined. Weekend notes reviewed. No acute events noted overnight. Patient sitting up in bed. Status post peritoneal washout Tuesday. Has no complaints. States he feels good and is ready to get his NG tube out. Denies fevers, chills, or rigors. Denies chest pain, shortness of breath, or cough. Denies nausea, vomiting, or diarrhea. Denies abdominal pain, urinary complaints, or appetite changes. Denies oral thrush or skin lesions. Is tolerating ice chips. Infect Dis PN-Objective Data - Labs CBC & Chem 7: 11/08/17 05:07 11/08/17 05:07 Labs: Laboratory Results - last 24 hr 11/07/17 11/07/17 11/07/17 08:18 08:18 08:18 WBC 20.0 H RBC 4.37 Hgb 13.3 Hct 41.1 MCV 94.1 MCH 30.4 MCHC 32.4 RDW 12.5 Plt Count 538 H MPV 8.8 L Immature Gran % 1.5 Seg Neutrophils % 86.1 Lymphocytes % 6.0 Monocytes % 5.5 Eosinophils % 0.5 Basophils % 0.4 Neutrophils # 17.2 H Lymphocytes # 1.2 Monocytes # 1.1 Eosinophils # 0.1 Basophils # 0.1 Sodium 146 H Potassium 3.2 L Chloride 102 Carbon Dioxide 37 H BUN 11 Creatinine 0.62 L Est GFR ( Amer) > 60 Est GFR (Non-Af Amer) > 60 BUN/Creatinine Ratio 18 Glucose 128 H Calculated Osmolality 303 H Calcium 8.3 L Phosphorus 3.0 Magnesium 2.3 Cultures: Cultures 11/04/17 20:17 Gram Stain - Final Peritoneal Fluid Body Fluid Culture - Preliminary 11/02/17 14:15 Catheter Tip Culture - Final Intravenous or Arterial Cath No growth. 11/01/17 10:00 Body Fluid Culture - Final Pleural Fluid 11/01/17 10:00 Acid Fast Stain - Final Pleural Fluid 10/27/17 15:42 Blood Culture - Final Peripheral Venipuncture No growth. 10/27/17 14:18 Blood Culture - Final Peripheral Venipuncture No growth. 10/27/17 22:32 Anaerobic Culture - Final Aspirate No anaerobes were recovered. 10/27/17 22:32 Body Fluid Culture - Final Other-Specify in Comments Escherichia coli Streptococcus anginosus 10/27/17 20:00 Sputum Culture - Final Sputum Serology 11/01/17 11/01/17 Range/Units 09:45 09:45 Fluid LDH 497 (No Ref Range) Units/L Pleural Fluid Volume 850.0 mL Pleural Appearance Cloudy A (Clear) Pleural pH 8.00 (No Ref Range) pH Units Pleural RBC 0.013 H (0.000 - 0.002) M/mcL Pleural Tot Nuc Cell 4707 H (0-1000) TNC/mcL Pleural Neutrophils 64.3 % Pleural Band Neuts TNP Pleural Eosinophils 2.4 % Pleural Basophils TNP Pleural Lymphocytes % 9.5 % Pleural Monocytes % TNP Pleural Other Cells % 23.8 % Pleural Total Protein 3.4 (No Ref Range) g/dL Pleural Albumin 2.0 (No Ref Range) g/dL Pleural LDH 498 (No Ref Range) Units/L Pleural Glucose 123 (No Ref Range) mg/dL Pleural Amylase 26 (No Ref Range) Units/L Pleural Cholesterol 67 (No Ref Range) mg/dL Pleural Triglycerides 52 (No Ref Range) mg/dL Exam - Constitutional Vitals: Temp Pulse Resp BP Pulse Ox 99.8 F H 109 16 133/91 92 11/07/17 15:37 11/07/17 15:37 11/07/17 15:37 11/07/17 15:37 11/07/17 15:37 General appearance: average body habitus, no acute distress - Head Head exam: Present: atraumatic, normal inspection, normocephalic - Eye Eye exam: Present: EOMI, normal appearance, PERRL Pupils: Present: normal accommodation - ENT ENT exam: Present: mucous membranes moist Additional comments: NG Tube to LIWS noted to the right nare. - Neck Neck exam: Present: normal inspection - Respiratory Respiratory exam: Present: CTAB. Absent: rales, respiratory distress, rhonchi, wheezes - Cardiovascular Cardiovascular exam: Present: +S1, +S2, tachycardia. Absent: irregular rhythm - GI/Abdominal GI/Abdominal exam: Present: hypoactive bowel sounds, soft, tenderness ( Generalized). Absent: distended Additional comments: PRIYA drain noted to the LUQ, empty. PRIYA drain noted to the LLQ with small amount of serosanguinous drainage. PRIYA drain noted to the RUQ with small amount of serosanguinous drainage. - Extremities Exam Extremities exam: Present: pedal edema (1+ BLE). Absent: joint swelling, tenderness - Neurological Exam Neurological exam: Present: alert, oriented X3, no focal deficits - Psychiatric Psychiatric exam: Present: normal affect, normal mood - Skin Skin exam: Present: dry, intact, normal color, warm - VTE Documentation of Mechanical Device: Intermittent pneumatic compression device Consult Discharge Plan - Plan Referrals: Manuel Webster MD [Partnered Physician] - 11/08/17 2:45 pm - Attending Attestation I examined this patient and my medical decision-making was reviewed with the Resident Physician. I agree with the documented findings, disposition and treatment plan as described except to the extent set forth below. changed to clear liquid, tolerating it well. d/w Dr. Hernandez, consider switching to oral antibiotics once clinically doing better.
[2017-11-07] MEDS ORDERED: *HR* OxyCODONE/APAP 5/325 TABLET PO PRN (20:25)
[2017-11-08] MEDS: MetroNIDAZOLE 500 MG/100 ML 500 MG/100 ML BAG IVPB SCH ×2 (00:20→22:03)
[2017-11-08] MEDS: *HR* Enoxaparin 40 MG/0.4 ML SYRINGE SQ SCH (06:07)
[2017-11-08] MEDS ORDERED: Ipratropium/Albuterol Neb 3 ML IH PRN (06:28)
[2017-11-08] MEDS ORDERED: *HR* Metoprolol 5 MG/5 ML VIAL IVP PRN (06:28)
[2017-11-08] MEDS ORDERED: Naloxone 0.4 MG/ML INJ IVP PRN (06:28)
[2017-11-08 06:31] LABS: Basophils # 0.1 K/mcL (0.0-0.2); Basophils % 0.5 %; Eosinophils # 0.5 K/mcL (0.0-0.6); Eosinophils % 2.6 %; Hematocrit 41.4 % (37.5-50.1); Hemoglobin 13.2 g/dL (12.9-16.9); Immature Granulocytes % 1.2 % (0-4); Lymphocytes # 1.7 K/mcL (0.6-4.6); Lymphocytes % 8.6 %; Mean Corpuscular HGB Conc 31.9 g/dL (31.6-35.5); Mean Corpuscular Hemoglobin 29.9 pg (28.0-33.3); Mean Corpuscular Volume 93.9 fL (83.0-100.0); Mean Platelet Volume 8.9 fL (9.4-12.4); Monocytes % 5.2 %; Platelet Count 581 K/mcL (140-400); Red Blood Count 4.41 M/mcL (4.19-5.50); Red Cell Distribution Width 12.6 % (11.5-14.5); Segmented Neutrophils % 81.9 %
[2017-11-08 06:34] LABS: BUN/Creatinine Ratio 21 (6-26); Blood Urea Nitrogen 12 mg/dL (6-20); Calcium 8.1 mg/dL (8.6-10.3); Carbon Dioxide 32 mEq/L (23-29); Chloride 99 mEq/L (98-107); Glucose 108 mg/dL (70-105); Osmolality,Calculated 290 (280-300); Sodium 140 mEq/L (136-145); eGFR For African Americans > 60 (> 60); eGFR For Non-African Americans > 60 (> 60)
--- NOTE | 2017-11-08 07:23 | General Surgery Progress Note ---
Addendum entered and electronically signed by Lorene Burciaga MD 11/08/17 11:00: Plan to discontinue percocet. Transitioning to norco, due to patient developing rash. No pruritus or hives currently. Pt remains hemodynamically stable. Original Note: <Lorene Burciaga - Last Filed: 11/08/17 10:26> Date of Encounter: 11/08/17 Time of Encounter: 07:21 - Assessment and Plan (1) Diverticulitis of colon with perforation Current Visit: Yes Status: Acute 42M with hinchey class II diverticulitis; multiple abscess pockets; POD #4 s/p abdominal washout -WBC downtrending. CBC reviewed. Cont Abx -appreciate recs per ID -Pain Management: percocet 5-325 Q 6 for pain if needed -Successful Removal of Drain #3 yesterday -Monitoring bowel function. -Plan to transition to PO, as tolerated -Will initiate patient on clear liquid diet -Encourage ambulation, Incentive Spirometry -Replete electrolytes prn. Qualifiers: Diverticulitis bleeding: without bleeding Qualified Code(s): K57.20 - Diverticulitis of large intestine with perforation and abscess without bleeding (2) DVT prophylaxis Current Visit: Yes Status: Acute Lovenox SCDs in place Subjective Patient reports: feels better, pain is less, voiding w/o difficulty, flatus, bowel movement, afebrile Objective Vital Signs - Last 8 Hours Temp Pulse Resp BP Pulse Ox 11/08/17 03:58 98.2 F 96 15 140/93 91 Intake and Output 11/07/17 11/07/17 11/08/17 15:59 23:59 07:59 Intake Total 100 / 100 1100 / 1100 2049 Output Total 1650 / 1650 475 / 475 279 / 279 Balance -1550 / -1550 625 / 625 1771 / 1771 Intake: IV Fluids 100 / 100 100 / 100 Flagyl Premix 500 MG/100 ML 500 100 / 100 100 / 100 mg In 100 ml @ 100 mls/hr IVPB Q8HR [facility] Rx#:[id number] Oral 1000 / 1000 2049 Output: Urine 750 / 750 475 / 475 250 / 250 Gastric Tube Lavage Amount 900 / 900 Right Nare 900 / 900 Wound Drainage Medial Lower ABD (2) 4 / 4 R Lower ABD (1) Other: Weight 103.1 kg Patient Weight 11/08/17 23:59 Weight 103.1 kg - General physical appearance well developed, no distress - Eyes normal ocular movement - Respiratory normal expansion, normal respiratory effort, clear to auscultation - Cardiovascular Cardiovascular exam: Present: NR, no murmurs/rubs/gallops - Abdomen Abdomen: Present: bowel sounds present, soft, non tender - Incision Incision: Present: clean and dry (cheryl in place ), intact, erythema (mild erythema by incision, below periumbilical area ) - Neurologic normal coordination - Psychiatric oriented to time, oriented to person - Labs 11/08/17 05:07 11/08/17 05:07 Diabetes panel 11/07/17 11/08/17 Range/Units 08:18 05:07 Sodium 146 H 140 (136-145) mEq/L Potassium 3.2 L 3.0 L (3.5-5.1) mEq/L Chloride 102 99 (98-107) mEq/L Carbon Dioxide 37 H 32 H (23-29) mEq/L BUN 11 12 (6-20) mg/dL Creatinine 0.62 L 0.58 L (0.70-1.30) mg/dL Glucose 128 H 108 H (70-105) mg/dL Calcium 8.3 L 8.1 L (8.6-10.3) mg/dL Calcium panel 11/07/17 11/07/17 11/08/17 Range/Units 08:18 08:18 05:07 Calcium 8.3 L 8.1 L (8.6-10.3) mg/dL Phosphorus 3.0 (2.7-4.5) mg/dL Pituitary panel 11/07/17 11/08/17 Range/Units 08:18 05:07 Sodium 146 H 140 (136-145) mEq/L Potassium 3.2 L 3.0 L (3.5-5.1) mEq/L Chloride 102 99 (98-107) mEq/L Carbon Dioxide 37 H 32 H (23-29) mEq/L BUN 11 12 (6-20) mg/dL Creatinine 0.62 L 0.58 L (0.70-1.30) mg/dL Glucose 128 H 108 H (70-105) mg/dL Calcium 8.3 L 8.1 L (8.6-10.3) mg/dL Adrenal panel 11/07/17 11/08/17 Range/Units 08:18 05:07 Sodium 146 H 140 (136-145) mEq/L Potassium 3.2 L 3.0 L (3.5-5.1) mEq/L Chloride 102 99 (98-107) mEq/L Carbon Dioxide 37 H 32 H (23-29) mEq/L BUN 11 12 (6-20) mg/dL Creatinine 0.62 L 0.58 L (0.70-1.30) mg/dL Glucose 128 H 108 H (70-105) mg/dL Calcium 8.3 L 8.1 L (8.6-10.3) mg/dL - VTE Documentation of Mechanical Device: Intermittent pneumatic compression device Consult Discharge Plan - Plan Referrals: Manuel Webster MD [Partnered Physician] - 11/08/17 2:45 pm <Angel Hernandez - Last Filed: 11/08/17 12:42> Date of Encounter: 11/08/17 - Assessment and Plan (1) Diverticulitis of colon with perforation Current Visit: Yes Status: Acute Qualifiers: Diverticulitis bleeding: without bleeding Qualified Code(s): K57.20 - Diverticulitis of large intestine with perforation and abscess without bleeding Objective Vital Signs - Last 8 Hours Temp Pulse Resp BP Pulse Ox 11/08/17 11:46 98.2 F 101 16 142/89 93 11/08/17 11:38 99 11/08/17 07:38 98.3 F 98 14 144/98 91 Intake and Output 11/07/17 11/08/17 11/08/17 23:59 07:59 15:59 Intake Total 1100 / 1100 2049 860 / 860 Output Total 475 / 475 479 / 479 600 / 600 Balance 625 / 625 1571 / 1571 260 / 260 Intake: IV Fluids 100 / 100 Flagyl Premix 500 MG/100 ML 500 100 / 100 mg In 100 ml @ 100 mls/hr IVPB Q8HR [facility] Rx#:[id number] Oral 1000 / 1000 2049 860 / 860 Output: Urine 475 / 475 450 / 450 600 / 600 Wound Drainage Medial Lower ABD (2) 4 / 4 R Lower ABD (1) 25 / 25 Other: Meal Breakfast Percent of Meal Consumed 0% Stool Size Small Stool Consistency liquid # Bowel Movements 1 Weight 103.1 kg Patient Weight 11/08/17 23:59 Weight 103.1 kg - Labs 11/08/17 05:07 11/08/17 05:07 Diabetes panel 11/08/17 Range/Units 05:07 Sodium 140 (136-145) mEq/L Potassium 3.0 L (3.5-5.1) mEq/L Chloride 99 (98-107) mEq/L Carbon Dioxide 32 H (23-29) mEq/L BUN 12 (6-20) mg/dL Creatinine 0.58 L (0.70-1.30) mg/dL Glucose 108 H (70-105) mg/dL Calcium 8.1 L (8.6-10.3) mg/dL Calcium panel 11/08/17 Range/Units 05:07 Calcium 8.1 L (8.6-10.3) mg/dL Pituitary panel 11/08/17 Range/Units 05:07 Sodium 140 (136-145) mEq/L Potassium 3.0 L (3.5-5.1) mEq/L Chloride 99 (98-107) mEq/L Carbon Dioxide 32 H (23-29) mEq/L BUN 12 (6-20) mg/dL Creatinine 0.58 L (0.70-1.30) mg/dL Glucose 108 H (70-105) mg/dL Calcium 8.1 L (8.6-10.3) mg/dL Adrenal panel 11/08/17 Range/Units 05:07 Sodium 140 (136-145) mEq/L Potassium 3.0 L (3.5-5.1) mEq/L Chloride 99 (98-107) mEq/L Carbon Dioxide 32 H (23-29) mEq/L BUN 12 (6-20) mg/dL Creatinine 0.58 L (0.70-1.30) mg/dL Glucose 108 H (70-105) mg/dL Calcium 8.1 L (8.6-10.3) mg/dL - Attending Attestation I have personally seen and examined the patient. I have reviewed pertinent labs , imaging, progress notes, including this one. I agree with the above assessment and plan and wish to include the following... 42M POD#4 s/p abdominal washout; afebrile; resolving sepsis (tachycardia/ leukocytosis); having bowel function; tolerating a diet; patient incision is clean, erythematous, and slightly warm to the touch; transition to PO pain meds , talk with ID concerning PO abx regimen to cover bowel abdomen and skin tere ( in light of patient's cellulitis); no need for beta blockade at present; ambulate and activity; likely plan for d/c in the next 24-48hrs;
[2017-11-08] MEDS ORDERED: MetroNIDAZOLE 500 MG/100 ML 500 MG/100 ML BAG IVPB SCH (08:00)
[2017-11-08] MEDS ORDERED: *HR* OxyCODONE/APAP 5/325 TABLET PO PRN (10:21)
[2017-11-08] MEDS ORDERED: *HR* HYDROcodone/Acet 5/325 mg TABLET PO PRN (10:53)
--- NOTE | 2017-11-08 11:56 | Infectious Disease Progress No ---
Date of Encounter: 11/08/17 Time of Encounter: 11:53 - Assessment and Plan (1) Leukocytosis, unspecified Current Visit: Yes Status: Acute Likely secondary to infectious process. WBC improved to 19.5 today. Continue to trend. Qualifiers: Leukocytosis type: unspecified Qualified Code(s): D72.829 - Elevated white blood cell count, unspecified (2) Diverticulitis of colon with perforation Current Visit: Yes Status: Acute Severe sigmoid diverticulitis with perforation noted on CT scan 10/24/17. Repeat CT scan on 10/27/17 showed improvement in free air, but a new developing abscess was noted within the pelvis. Status post drain placement 10/27/17. Culture grew E. coli and. S. anginosus. Repeat CT scan 11/02/17 showed resolution of the initial abscess, but also showed worsening of second abscess. Discussed with Dr. Dinh with IR and reviewed CT. Concerned that there are actually multiple small abscesses within the abdomen that are not able to be drained percutaneously. Also a larger 5cm x 7cm fluid collection along the liver that's concerning for abscess as well. Status post lap converted to open peritoneal washout on Tuesday. Peritoneal fluid culture obtained and negative. Discontinue Rocephin due to concern for drug-related rash. Start Levaquin 750mg IV daily. Continue flagyl 500mg TID IV. Continue fluconazole 400mg PO daily. Duration of treatment depends on the clinical picture. Monitor renal and liver function and dose-adjust antibiotics. Qualifiers: Diverticulitis bleeding: without bleeding Qualified Code(s): K57.20 - Diverticulitis of large intestine with perforation and abscess without bleeding (3) Bilateral pleural effusion Current Visit: Yes Status: Acute Status post paracentesis on 10/31/17. Appears exudative per Light's Criteria, but gram stain and culture are negative. Low index of suspicion that this is infected. Continue to monitor closely. (4) SOB (shortness of breath) Current Visit: Yes Status: Resolved Likely secondary to pleural effusions. Resolved. (5) Acute respiratory failure with hypoxia Current Visit: Yes Status: Resolved Secondary to bilateral pleural effusions. Resolved. (6) Compression atelectasis Current Visit: Yes Status: Acute (7) Atrial fibrillation with RVR Current Visit: Yes Status: Resolved Likely secondary to infectious process. Still tachycardic, but improved and in sinus rhythm. Management per cardiology recommendations and the primary team. (8) Rash Current Visit: Yes Status: Acute Location: Anterior and posterior trunk. Etiology unclear, but concern for drug rash. Continue supportive care with antihistamines, loose-fitting clothing, and cool showers. Continue to monitor. See antibiotic changes as above. - Subjective Interval history: Patient seen and examined. No acute events noted overnight. Patient sitting up in bed. Status post peritoneal washout Tuesday. Had NG tube and LUQ PRIYA drain removed yesterday. Denies fevers, chills, or rigors. Denies chest pain, shortness of breath. Repors productive cough with thick white sputum. Denies nausea, vomiting, or diarrhea. Reports soft BM this morning. Denies abdominal pain, urinary complaints, or appetite changes. Denies oral thrush. Reports a new -onset itchy rash that started yesterday. Tolerating clear liquid diet. Infect Dis PN-Objective Data - Labs CBC & Chem 7: 11/08/17 05:07 11/08/17 05:07 Labs: Laboratory Results - last 24 hr 11/08/17 11/08/17 11/08/17 05:07 05:07 05:07 WBC 19.5 H RBC 4.41 Hgb 13.2 Hct 41.4 MCV 93.9 MCH 29.9 MCHC 31.9 RDW 12.6 Plt Count 581 H MPV 8.9 L Immature Gran % 1.2 Seg Neutrophils % 81.9 Lymphocytes % 8.6 Monocytes % 5.2 Eosinophils % 2.6 Basophils % 0.5 Neutrophils # 16.0 H Lymphocytes # 1.7 Monocytes # 1.0 Eosinophils # 0.5 Basophils # 0.1 Sodium 140 Potassium 3.0 L Chloride 99 Carbon Dioxide 32 H BUN 12 Creatinine 0.58 L Est GFR ( Amer) > 60 Est GFR (Non-Af Amer) > 60 BUN/Creatinine Ratio 21 Glucose 108 H Calculated Osmolality 290 Calcium 8.1 L Prealbumin 10.6 L Cultures: Cultures 11/04/17 20:17 Anaerobic Culture - Preliminary Peritoneal Fluid At this time, no anaerobic growth is present. The culture will be finalized after 5 days of incubation. 11/04/17 20:17 Gram Stain - Final Peritoneal Fluid Body Fluid Culture - Final 11/02/17 14:15 Catheter Tip Culture - Final Intravenous or Arterial Cath No growth. 11/01/17 10:00 Body Fluid Culture - Final Pleural Fluid 11/01/17 10:00 Acid Fast Stain - Final Pleural Fluid 10/27/17 15:42 Blood Culture - Final Peripheral Venipuncture No growth. 10/27/17 14:18 Blood Culture - Final Peripheral Venipuncture No growth. 10/27/17 22:32 Anaerobic Culture - Final Aspirate No anaerobes were recovered. 10/27/17 22:32 Body Fluid Culture - Final Other-Specify in Comments Escherichia coli Streptococcus anginosus 10/27/17 20:00 Sputum Culture - Final Sputum Serology 11/01/17 11/01/17 Range/Units 09:45 09:45 Fluid LDH 497 (No Ref Range) Units/L Pleural Fluid Volume 850.0 mL Pleural Appearance Cloudy A (Clear) Pleural pH 8.00 (No Ref Range) pH Units Pleural RBC 0.013 H (0.000 - 0.002) M/mcL Pleural Tot Nuc Cell 4707 H (0-1000) TNC/mcL Pleural Neutrophils 64.3 % Pleural Band Neuts TNP Pleural Eosinophils 2.4 % Pleural Basophils TNP Pleural Lymphocytes % 9.5 % Pleural Monocytes % TNP Pleural Other Cells % 23.8 % Pleural Total Protein 3.4 (No Ref Range) g/dL Pleural Albumin 2.0 (No Ref Range) g/dL Pleural LDH 498 (No Ref Range) Units/L Pleural Glucose 123 (No Ref Range) mg/dL Pleural Amylase 26 (No Ref Range) Units/L Pleural Cholesterol 67 (No Ref Range) mg/dL Pleural Triglycerides 52 (No Ref Range) mg/dL Exam - Constitutional Vitals: Temp Pulse Resp BP Pulse Ox 98.2 F 101 16 142/89 93 11/08/17 11:46 11/08/17 11:46 11/08/17 11:46 11/08/17 11:46 11/08/17 11:46 General appearance: average body habitus, cooperative, no acute distress - Head Head exam: Present: atraumatic, normal inspection, normocephalic - Eye Eye exam: Present: EOMI, normal appearance, PERRL Pupils: Present: normal accommodation - ENT ENT exam: Present: mucous membranes moist - Neck Neck exam: Present: normal inspection - Respiratory Respiratory exam: Present: CTAB. Absent: rales, respiratory distress, rhonchi, wheezes - Cardiovascular Cardiovascular exam: Present: +S1, +S2, tachycardia. Absent: irregular rhythm - GI/Abdominal GI/Abdominal exam: Present: distended, normal bowel sounds, soft, tenderness ( generalized) Additional comments: Midline abdominal incision with cheryl intact. Small amount of serous drainage noted. Erythema noted to the skin surrounding the surgical incision and is warm to the touch. PRIYA drain noted to the LLQ and RUQ with small amount of serosanguinous drainage. - Extremities Exam Extremities exam: Present: normal inspection, pedal edema (Trace BLE). Absent: joint swelling, tenderness - Back Exam Back exam: Present: rash noted - Neurological Exam Neurological exam: Present: alert, oriented X3, no focal deficits - Psychiatric Psychiatric exam: Present: normal affect, normal mood - Skin Skin exam: Present: dry, intact, normal color, rash (Flat, erythematous macular rash noted to the anterior and posterior trunk.), warm - VTE Documentation of Mechanical Device: Intermittent pneumatic compression device Consult Discharge Plan - Plan Referrals: Manuel Webster MD [Partnered Physician] - 11/08/17 2:45 pm - Attending Attestation I examined this patient and my medical decision-making was reviewed with the Resident Physician. I agree with the documented findings, disposition and treatment plan as described except to the extent set forth below. After long discussion with the patient and the family, I'm not sure the rash is coming from but concern for Rocephin allergy. I will switch the patient to levofloxacin and continue the Flagyl. Benadryl for the rash that is nonpruritic. Anticipate the rash to resolve in 2-3 days. Patient did have a bowel movement today. WBC continues to be elevated 19.5. We'll see how he does tomorrow clinically.
--- NOTE | 2017-11-08 12:13 | Event Note ---
Date of Encounter: 11/08/17 Time of Encounter: 12:11 - Cardiology Event Note Discussed pt with pharmacist. There was concern of A-Fib/tachycardia. Pt was seen in consult by cardiology 10/31/17 for A-Fib at that time. It was recommended pt be on Cardizem CD 300mg daily, Toprol XL 25mg daily, and ASA 81mg daily. Reviewed telemetry. HR currently 90s and pt has been maintaining SR on tele. On transfer Cardizem was stopped. Will resume Cardizem CD 300mg daily. Continue Toprol and ASA. Reconsult PRN. Follow-up as outpt as planned with cardiology.
[2017-11-08] MEDS ORDERED: Fluconazole 100 MG TABLET PO SCH (13:15)
[2017-11-08] MEDS: Metoprolol XL (24 HR) Succ 25 MG TAB.ER.24H PO SCH (13:17)
[2017-11-08] MEDS: Diltiazem CD (24hr) 300 MG CAPSULE PO SCH (13:25)
[2017-11-08] MEDS: Ondansetron 4 MG/2 ML VIAL IVP PRN (13:38)
[2017-11-08] MEDS ORDERED: *HR* Promethazine 25 MG/ML VIAL IVP PRN (14:15)
[2017-11-08] MEDS ORDERED: Potassium Chloride 40 MEQ, Lidocaine 1% 2 ML in D5% in Water 500 ML IVPB ONE (15:07)
[2017-11-08] MEDS ORDERED: cefTRIAXone 2,000 MG in Water for inj. (sterile) 20 ML 20 ML IVP SCH (16:00)
[2017-11-08] MEDS: Levofloxacin 750 MG/150 ML 750 MG/150 ML BAG IVPB SCH (16:07)
[2017-11-08] MEDS: Melatonin 3 MG TABLET PO PRN (22:04)
[2017-11-09] MEDS: *HR* Enoxaparin 40 MG/0.4 ML SYRINGE SQ SCH (05:21)
[2017-11-09] MEDS: MetroNIDAZOLE 500 MG/100 ML 500 MG/100 ML BAG IVPB SCH ×3 (05:24→21:40)
[2017-11-09 05:38] LABS: Basophils # 0.1 K/mcL (0.0-0.2); Basophils % 0.6 %; Eosinophils # 0.9 K/mcL (0.0-0.6); Eosinophils % 4.1 %; Hematocrit 40.2 % (37.5-50.1); Hemoglobin 13.2 g/dL (12.9-16.9); Immature Granulocytes % 1.6 % (0-4); Lymphocytes # 1.4 K/mcL (0.6-4.6); Lymphocytes % 6.8 %; Mean Corpuscular HGB Conc 32.8 g/dL (31.6-35.5); Mean Corpuscular Hemoglobin 30.3 pg (28.0-33.3); Mean Corpuscular Volume 92.2 fL (83.0-100.0); Mean Platelet Volume 8.9 fL (9.4-12.4); Monocytes # 1.1 K/mcL (0.0-1.3); Monocytes % 5.4 %; Neutrophils # 17.1 K/mcL (1.6-8.9); Platelet Count 520 K/mcL (140-400); Red Blood Count 4.36 M/mcL (4.19-5.50); Red Cell Distribution Width 12.5 % (11.5-14.5); Segmented Neutrophils % 81.5 %
[2017-11-09 05:50] LABS: Magnesium 1.9 mg/dL (1.6-2.6)
[2017-11-09 05:53] LABS: BUN/Creatinine Ratio 15 (6-26); Blood Urea Nitrogen 9 mg/dL (6-20); Calcium 7.9 mg/dL (8.6-10.3); Carbon Dioxide 29 mEq/L (23-29); Chloride 96 mEq/L (98-107); Glucose 102 mg/dL (70-105); Osmolality,Calculated 273 (280-300); Potassium 3.3 mEq/L (3.5-5.1); Sodium 132 mEq/L (136-145); eGFR For African Americans > 60 (> 60); eGFR For Non-African Americans > 60 (> 60)
[2017-11-09] MEDS: Aspirin Enteric Coated 81 MG Tablet PO SCH (08:18)
[2017-11-09] MEDS: Metoprolol XL (24 HR) Succ 25 MG TAB.ER.24H PO SCH (08:18)
[2017-11-09] MEDS: Diltiazem CD (24hr) 300 MG CAPSULE PO SCH (08:19)
--- NOTE | 2017-11-09 10:54 | General Surgery Progress Note ---
<Lorene Burciaga - Last Filed: 11/09/17 11:32> Date of Encounter: 11/09/17 Time of Encounter: 10:51 - Assessment and Plan (1) Diverticulitis of colon with perforation Current Visit: Yes Status: Acute 42M with hinchey class II diverticulitis; multiple abscess pockets; POD #4 s/p abdominal washout -WBC stable. CBC reviewed. Cont Abx -appreciate recs per ID -Pain Management: [place]. Percocet 5-325 Q 6 for pain if needed -Monitoring bowel function, with serial abdominal examination, -Pt tolerating diet -Encourage ambulation, Incentive Spirometry -Replete electrolytes prn. Qualifiers: Diverticulitis bleeding: without bleeding Qualified Code(s): K57.20 - Diverticulitis of large intestine with perforation and abscess without bleeding (2) Postoperative ileus Current Visit: Yes Status: Acute Reviewed morning X-ray report with attending. Pt denies emesis, on PE abdominal distension appears to have improved and noting present bowel sounds Serial abdominal examinations, as noted above, with continued bowel rest. Given patient bowel function improving on clinical exam, will cautiously advance to full liquid diet Pain management - As above. Will keep in mind preference for limited use of opioids when possible, and will consider transition to non-opiods according to patient's tolerance Electrolyte management as above (3) Atrial fibrillation Current Visit: Yes Status: Acute CHADS VASC=1 for HTN. Appreciated previous recommendations from cardiology. Qualifiers: Atrial fibrillation type: unspecified Qualified Code(s): I48.91 - Unspecified atrial fibrillation (4) Hyponatremia Current Visit: Yes Status: Acute Hypotonic Hyponatremia, with GFR within normal limits., with X-ray demonstrating bilateral pleural effusions. Pt is on on full liquid diet, and will also recommend cautious intake of fluids given drop in hyponatremia. serial BMPs. Urine chem panel in AM. (5) Bilateral pleural effusion Current Visit: Yes Status: Acute 11/09/17 X-ray demonstrating Bilateral pleural effusions with overlying atelectatic changes. LVEF 60-65%. IVP Lasix 40 mg Once. (6) Rash Current Visit: Yes Status: Acute Rash initially recorded on 11/08/17. Rash appears to be improving. Patient denies pruritis. Etiology unclear, but concern for rash 2/2 to pharmacological treatment. Continue supportive care with antihistamines, loose-fitting clothing, and cool showers. Will Continue to monitor Appreciate recs by ID. (7) DVT prophylaxis Current Visit: Yes Status: Acute Lovenox SCDs in place Subjective Patient reports: feels better, pain is less, voiding w/o difficulty, flatus, bowel movement, afebrile Objective Vital Signs - Last 8 Hours Temp Pulse Resp BP Pulse Ox 11/09/17 07:43 97.6 F 83 14 141/88 95 Intake and Output 11/08/17 11/09/17 11/09/17 23:59 07:59 15:59 Intake Total 1110 / 1110 1000 / 1000 640 / 640 Output Total 466 / 466 940 / 940 Balance 644 / 644 60 / 60 640 / 640 Intake: IV Fluids 250 / 250 Levaquin Premix 750mg/150 mL 150 / 150 750 mg In 150 ml @ 100 mls/hr IVPB Q24H [facility] Rx#:[id number] Flagyl Premix 500 MG/100 ML 500 100 / 100 mg In 100 ml @ 100 mls/hr IVPB Q8H [facility] Rx#:[id number] Oral 860 / 860 400 / 400 640 / 640 Intake, Autotransfusion Amount 600 / 600 Output: Urine 425 / 425 910 / 910 Wound Drainage 41 / 41 30 / 30 Medial Lower ABD (2) 6 / 6 10 / 10 R Lower ABD (1) 35 / 35 20 / 20 Other: Meal Dinner Breakfast Percent of Meal Consumed 0% 0% Stool Size Small Stool Consistency soft Stool Color Brown # Bowel Movements 1 - General physical appearance no distress - Eyes normal ocular movement - Respiratory normal expansion, normal respiratory effort crackles: bilateral - Cardiovascular Cardiovascular exam: Present: RRR - Abdomen Abdomen: Present: bowel sounds present, soft, non tender Additional Comments: mild abdominal distention - Incision Incision: Present: clean and dry, intact, erythema (improved ), approximated - Integumentary other (diffuse reticular rash involving extremities evident, yet improved from previous exam) - Neurologic normal coordination - Psychiatric oriented to time, oriented to person, oriented to place, speech is normal - Labs 11/09/17 04:49 11/09/17 04:49 Diabetes panel 11/09/17 Range/Units 04:49 Sodium 132 L (136-145) mEq/L Potassium 3.3 L (3.5-5.1) mEq/L Chloride 96 L (98-107) mEq/L Carbon Dioxide 29 (23-29) mEq/L BUN 9 (6-20) mg/dL Creatinine 0.60 L (0.70-1.30) mg/dL Glucose 102 (70-105) mg/dL Calcium 7.9 L (8.6-10.3) mg/dL Calcium panel 11/09/17 11/09/17 Range/Units 04:49 04:49 Calcium 7.9 L (8.6-10.3) mg/dL Phosphorus 3.0 (2.7-4.5) mg/dL Pituitary panel 11/09/17 Range/Units 04:49 Sodium 132 L (136-145) mEq/L Potassium 3.3 L (3.5-5.1) mEq/L Chloride 96 L (98-107) mEq/L Carbon Dioxide 29 (23-29) mEq/L BUN 9 (6-20) mg/dL Creatinine 0.60 L (0.70-1.30) mg/dL Glucose 102 (70-105) mg/dL Calcium 7.9 L (8.6-10.3) mg/dL Adrenal panel 11/09/17 Range/Units 04:49 Sodium 132 L (136-145) mEq/L Potassium 3.3 L (3.5-5.1) mEq/L Chloride 96 L (98-107) mEq/L Carbon Dioxide 29 (23-29) mEq/L BUN 9 (6-20) mg/dL Creatinine 0.60 L (0.70-1.30) mg/dL Glucose 102 (70-105) mg/dL Calcium 7.9 L (8.6-10.3) mg/dL - VTE Documentation of Mechanical Device: Intermittent pneumatic compression device Consult Discharge Plan - Plan Referrals: Manuel Webster MD [Partnered Physician] - 11/08/17 2:45 pm <Angel Hernandez - Last Filed: 11/09/17 16:42> Date of Encounter: 11/09/17 - Assessment and Plan (1) Diverticulitis of colon with perforation Current Visit: Yes Status: Acute Qualifiers: Diverticulitis bleeding: without bleeding Qualified Code(s): K57.20 - Diverticulitis of large intestine with perforation and abscess without bleeding Objective Vital Signs - Last 8 Hours Temp Pulse Resp BP Pulse Ox 11/09/17 11:45 98.3 F 93 14 147/82 90 Intake and Output 11/09/17 11/09/17 11/09/17 07:59 15:59 23:59 Intake Total 1100 / 1100 1120 / 1120 Output Total 940 / 940 1380 / 1380 Balance 160 / 160 -260 / -260 Intake: IV Fluids 100 / 100 Flagyl Premix 500 MG/100 ML 500 100 / 100 mg In 100 ml @ 100 mls/hr IVPB Q8H [facility] Rx#:[id number] Oral 400 / 400 1120 / 1120 Intake, Autotransfusion Amount 600 / 600 Output: Urine 910 / 910 1350 / 1350 Wound Drainage 30 Medial Lower ABD (2) R Lower ABD (1) Other: Meal Lunch Percent of Meal Consumed 100% Stool Size Small Moderate Stool Consistency soft loose Stool Color Brown Brown # Bowel Movements 1 1 - Labs 11/09/17 04:49 11/09/17 04:49 Diabetes panel 11/09/17 Range/Units 04:49 Sodium 132 L (136-145) mEq/L Potassium 3.3 L (3.5-5.1) mEq/L Chloride 96 L (98-107) mEq/L Carbon Dioxide 29 (23-29) mEq/L BUN 9 (6-20) mg/dL Creatinine 0.60 L (0.70-1.30) mg/dL Glucose 102 (70-105) mg/dL Calcium 7.9 L (8.6-10.3) mg/dL Calcium panel 11/09/17 11/09/17 Range/Units 04:49 04:49 Calcium 7.9 L (8.6-10.3) mg/dL Phosphorus 3.0 (2.7-4.5) mg/dL Pituitary panel 11/09/17 Range/Units 04:49 Sodium 132 L (136-145) mEq/L Potassium 3.3 L (3.5-5.1) mEq/L Chloride 96 L (98-107) mEq/L Carbon Dioxide 29 (23-29) mEq/L BUN 9 (6-20) mg/dL Creatinine 0.60 L (0.70-1.30) mg/dL Glucose 102 (70-105) mg/dL Calcium 7.9 L (8.6-10.3) mg/dL Adrenal panel 11/09/17 Range/Units 04:49 Sodium 132 L (136-145) mEq/L Potassium 3.3 L (3.5-5.1) mEq/L Chloride 96 L (98-107) mEq/L Carbon Dioxide 29 (23-29) mEq/L BUN 9 (6-20) mg/dL Creatinine 0.60 L (0.70-1.30) mg/dL Glucose 102 (70-105) mg/dL Calcium 7.9 L (8.6-10.3) mg/dL - Attending Attestation I have personally seen and examined the patient. I have reviewed pertinent labs , imaging, progress notes, including this one. I agree with the above assessment and plan and wish to include the following... 42M with hinchey class II diverticulitis s/p IR drainage of pelvic abscess s/p abdominal washout; Sepsis resolving - diet as tolerated - if patient still doing well, then will plan to transition to PO abx in AM - SLIV - pain control with PO pain meds; - plan for d/c in AM if doing well
[2017-11-09] MEDS ORDERED: Furosemide 40 MG/4 ML VIAL IVP ONE (11:08)
[2017-11-09] MEDS ORDERED: Acetaminophen 325 MG TABLET PO PRN (11:24)
--- NOTE | 2017-11-09 12:22 | Infectious Disease Progress No ---
Date of Encounter: 11/09/17 Time of Encounter: 12:18 - Assessment and Plan (1) Leukocytosis, unspecified Current Visit: Yes Status: Acute Likely secondary to infectious process. WBC stable at 20. Continue to trend. Qualifiers: Leukocytosis type: unspecified Qualified Code(s): D72.829 - Elevated white blood cell count, unspecified (2) Diverticulitis of colon with perforation Current Visit: Yes Status: Acute Severe sigmoid diverticulitis with perforation noted on CT scan 10/24/17. Repeat CT scan on 10/27/17 showed improvement in free air, but a new developing abscess was noted within the pelvis. Status post drain placement 10/27/17. Culture grew E. coli and. S. anginosus. Repeat CT scan 11/02/17 showed resolution of the initial abscess, but also showed worsening of second abscess. Discussed with Dr. Dinh with IR and reviewed CT. Concerned that there are actually multiple small abscesses within the abdomen that are not able to be drained percutaneously. Also a larger 5cm x 7cm fluid collection along the liver that's concerning for abscess as well. Status post lap converted to open peritoneal washout on Tuesday. Peritoneal fluid culture obtained and negative. Continue Levaquin 750mg IV daily. Continue flagyl 500mg TID IV. Discontinue fluconazole. Duration of treatment depends on the clinical picture. Monitor renal and liver function and dose-adjust antibiotics. Qualifiers: Diverticulitis bleeding: without bleeding Qualified Code(s): K57.20 - Diverticulitis of large intestine with perforation and abscess without bleeding (3) Bilateral pleural effusion Current Visit: Yes Status: Acute Status post paracentesis on 10/31/17. Appears exudative per Light's Criteria, but gram stain and culture are negative. Low index of suspicion that this is infected. Continue to monitor closely. (4) SOB (shortness of breath) Current Visit: Yes Status: Resolved Likely secondary to pleural effusions. Resolved. (5) Acute respiratory failure with hypoxia Current Visit: Yes Status: Resolved Secondary to bilateral pleural effusions. Resolved. (6) Compression atelectasis Current Visit: Yes Status: Acute (7) Atrial fibrillation with RVR Current Visit: Yes Status: Resolved Likely secondary to infectious process. Still tachycardic, but improved and in sinus rhythm. Management per cardiology recommendations and the primary team. (8) Rash Current Visit: Yes Status: Acute Location: Anterior and posterior trunk. Etiology unclear, but concern for drug rash. Continue supportive care with antihistamines, loose-fitting clothing, and cool showers. Continue to monitor. (9) Postoperative ileus Current Visit: Yes Status: Acute KUB shows findings consistent with post-op ileus, which could be contributing to the patient's leukocytosis. Management per the surgery team. - Subjective Interval history: Patient seen and examined. No acute events noted overnight. Patient sitting up in bed. Status post peritoneal washout Tuesday. Had NG tube and LUQ PRIYA drain removed on Tuesday. Reports nausea without vomiting yesterday, but states this is resolved and he has had a couple of loose/soft BMs this morning and he is passing gas. Denies fevers, chills, or rigors. Denies chest pain, shortness of breath. Reports a productive cough with thick white sputum that seems to be better today. Denies nausea, vomiting, or diarrhea now. Denies abdominal pain, urinary complaints, or appetite changes. Denies oral thrush. Reports a new- onset itchy rash that started Tuesday, but states it is no longer itchy. Tolerating clear liquid diet. Infect Dis PN-Objective Data - Labs CBC & Chem 7: 11/09/17 04:49 11/09/17 04:49 Labs: Laboratory Results - last 24 hr 11/09/17 11/09/17 11/09/17 04:49 04:49 04:49 WBC 20.9 H RBC 4.36 Hgb 13.2 Hct 40.2 MCV 92.2 MCH 30.3 MCHC 32.8 RDW 12.5 Plt Count 520 H MPV 8.9 L Immature Gran % 1.6 Seg Neutrophils % 81.5 Lymphocytes % 6.8 Monocytes % 5.4 Eosinophils % 4.1 Basophils % 0.6 Neutrophils # 17.1 H Lymphocytes # 1.4 Monocytes # 1.1 Eosinophils # 0.9 H Basophils # 0.1 Sodium 132 L Potassium 3.3 L Chloride 96 L Carbon Dioxide 29 BUN 9 Creatinine 0.60 L Est GFR ( Amer) > 60 Est GFR (Non-Af Amer) > 60 BUN/Creatinine Ratio 15 Glucose 102 Calculated Osmolality 273 L Calcium 7.9 L Phosphorus 3.0 Magnesium 1.9 Cultures: Cultures 11/04/17 20:17 Anaerobic Culture - Preliminary Peritoneal Fluid At this time, no anaerobic growth is present. The culture will be finalized after 5 days of incubation. 11/04/17 20:17 Gram Stain - Final Peritoneal Fluid Body Fluid Culture - Final 11/02/17 14:15 Catheter Tip Culture - Final Intravenous or Arterial Cath No growth. 11/01/17 10:00 Body Fluid Culture - Final Pleural Fluid 11/01/17 10:00 Acid Fast Stain - Final Pleural Fluid 10/27/17 15:42 Blood Culture - Final Peripheral Venipuncture No growth. 10/27/17 14:18 Blood Culture - Final Peripheral Venipuncture No growth. 10/27/17 22:32 Anaerobic Culture - Final Aspirate No anaerobes were recovered. 10/27/17 22:32 Body Fluid Culture - Final Other-Specify in Comments Escherichia coli Streptococcus anginosus 10/27/17 20:00 Sputum Culture - Final Sputum Serology 11/01/17 11/01/17 Range/Units 09:45 09:45 Fluid LDH 497 (No Ref Range) Units/L Pleural Fluid Volume 850.0 mL Pleural Appearance Cloudy A (Clear) Pleural pH 8.00 (No Ref Range) pH Units Pleural RBC 0.013 H (0.000 - 0.002) M/mcL Pleural Tot Nuc Cell 4707 H (0-1000) TNC/mcL Pleural Neutrophils 64.3 % Pleural Band Neuts TNP Pleural Eosinophils 2.4 % Pleural Basophils TNP Pleural Lymphocytes % 9.5 % Pleural Monocytes % TNP Pleural Other Cells % 23.8 % Pleural Total Protein 3.4 (No Ref Range) g/dL Pleural Albumin 2.0 (No Ref Range) g/dL Pleural LDH 498 (No Ref Range) Units/L Pleural Glucose 123 (No Ref Range) mg/dL Pleural Amylase 26 (No Ref Range) Units/L Pleural Cholesterol 67 (No Ref Range) mg/dL Pleural Triglycerides 52 (No Ref Range) mg/dL - Impressions Impressions Chest/Abdomen X-ray 11/09/17 08:00 IMPRESSION: Bilateral pleural effusions with overlying atelectatic changes. Multiple dilated loops of bowel seen within the abdomen likely secondary to ileus. D/ / 11/09/2017 09:08:31 Garrett Silva MD / lori Interpreting Provider: Garrett Silva MD Exam - Constitutional Vitals: Temp Pulse Resp BP Pulse Ox 98.3 F 93 14 147/82 90 11/09/17 11:45 11/09/17 11:45 11/09/17 11:45 11/09/17 11:45 11/09/17 11:45 General appearance: average body habitus, cooperative, no acute distress - Head Head exam: Present: atraumatic, normal inspection, normocephalic - Eye Eye exam: Present: EOMI, normal appearance, PERRL Pupils: Present: normal accommodation - ENT ENT exam: Present: mucous membranes moist - Neck Neck exam: Present: normal inspection - Respiratory Respiratory exam: Present: CTAB. Absent: rales, respiratory distress, rhonchi, wheezes - Cardiovascular Cardiovascular exam: Present: RRR, +S1, +S2 - GI/Abdominal GI/Abdominal exam: Present: distended, normal bowel sounds, soft. Absent: tenderness Additional comments: Midline abdominal incision with cheryl intact with moderate amount of yellow serous drainage. No erythema or warmth noted. PRIYA drain to the LLQ and RLQ with sanguinous drainage noted. - Extremities Exam Extremities exam: Present: pedal edema (1+ BLE). Absent: joint swelling, tenderness - Neurological Exam Neurological exam: Present: alert, oriented X3, no focal deficits - Psychiatric Psychiatric exam: Present: normal affect, normal mood - Skin Skin exam: Present: dry, intact, normal color, rash (Flat, erythematous, macular rash noted to the anterior and posterior trunk.), warm - VTE Documentation of Mechanical Device: Intermittent pneumatic compression device Consult Discharge Plan - Plan Referrals: Manuel Webster MD [Partnered Physician] - 11/08/17 2:45 pm - Attending Attestation I examined this patient and my medical decision-making was reviewed with the Resident Physician. I agree with the documented findings, disposition and treatment plan as described except to the extent set forth below. Continue Rocephin and Flagyl maybe see Diflucan.
[2017-11-09] MEDS: Levofloxacin 750 MG/150 ML 750 MG/150 ML BAG IVPB SCH (14:59)
[2017-11-09] MEDS: Melatonin 3 MG TABLET PO PRN (22:17)
[2017-11-10 04:47] LABS: Basophils # 0.2 K/mcL (0.0-0.2); Basophils % 0.6 %; Eosinophils % 3.9 %; Hematocrit 41.4 % (37.5-50.1); Hemoglobin 13.6 g/dL (12.9-16.9); Immature Granulocytes % 3.1 % (0-4); Lymphocytes # 1.6 K/mcL (0.6-4.6); Lymphocytes % 6.7 %; Mean Corpuscular HGB Conc 32.9 g/dL (31.6-35.5); Mean Corpuscular Hemoglobin 29.8 pg (28.0-33.3); Mean Corpuscular Volume 90.6 fL (83.0-100.0); Mean Platelet Volume 8.8 fL (9.4-12.4); Monocytes # 1.2 K/mcL (0.0-1.3); Monocytes % 4.8 %; Neutrophils # 19.7 K/mcL (1.6-8.9); Platelet Count 558 K/mcL (140-400); Red Blood Count 4.57 M/mcL (4.19-5.50); Red Cell Distribution Width 12.5 % (11.5-14.5); Segmented Neutrophils % 80.9 %
[2017-11-10 05:09] LABS: Magnesium 1.9 mg/dL (1.6-2.6); Phosphorous 2.7 mg/dL (2.7-4.5)
[2017-11-10] MEDS: MetroNIDAZOLE 500 MG/100 ML 500 MG/100 ML BAG IVPB SCH ×3 (05:09→20:26)
[2017-11-10] MEDS: *HR* Enoxaparin 40 MG/0.4 ML SYRINGE SQ SCH (05:10)
[2017-11-10 05:13] LABS: BUN/Creatinine Ratio 14 (6-26); Blood Urea Nitrogen 8 mg/dL (6-20); Carbon Dioxide 25 mEq/L (23-29); Chloride 99 mEq/L (98-107); Glucose 103 mg/dL (70-105); Osmolality,Calculated 271 (280-300); Potassium 3.6 mEq/L (3.5-5.1); Sodium 131 mEq/L (136-145); eGFR For African Americans > 60 (> 60); eGFR For Non-African Americans > 60 (> 60)
[2017-11-10] MEDS: Metoprolol XL (24 HR) Succ 25 MG TAB.ER.24H PO SCH (08:39)
[2017-11-10] MEDS: Aspirin Enteric Coated 81 MG Tablet PO SCH (08:39)
--- NOTE | 2017-11-10 08:55 | General Surgery Progress Note ---
Date of Encounter: 11/10/17 Time of Encounter: 08:53 - Assessment and Plan (1) Diverticulitis of colon with perforation Current Visit: Yes Status: Acute 42M with hinchey class II diverticulitis; multiple abscess pockets; POD #5 s/p abdominal washout; episodically tachycardic; CT scan today soft diet d/c IVF transition to PO abx per ID likely d/c today Qualifiers: Diverticulitis bleeding: without bleeding Qualified Code(s): K57.20 - Diverticulitis of large intestine with perforation and abscess without bleeding Subjective Patient reports: no new complaints, pain is less, tolerating liquids well, flatus, bowel movement, afebrile Objective Vital Signs - Last 8 Hours Temp Pulse Resp BP Pulse Ox 11/10/17 07:03 98.1 F 82 15 125/82 93 11/10/17 05:00 98.8 F 99 17 128/88 96 Intake and Output 11/09/17 11/10/17 11/10/17 23:59 07:59 15:59 Intake Total 895 / 895 160 / 160 Output Total 820 / 820 0 / 0 Balance 75 / 75 160 / 160 Intake: IV Fluids 355 / 355 100 / 100 Flagyl Premix 500 MG/100 ML 500 100 / 100 100 / 100 mg In 100 ml @ 100 mls/hr IVPB Q8H [facility] Rx#:[id number] Potassium Phosphate 22 MEQ In 0 255 / 255 .9 % Sodium Chloride 250 ML @ 40 mls/hr IVPB ONCE ONE Rx#: [id number] Oral 540 / 540 60 / 60 Output: Urine 800 / 800 Wound Drainage 20 / 20 0 / 0 Medial Lower ABD (2) 5 / 5 0 / 0 R Lower ABD (1) 15 / 15 0 / 0 Other: Meal Dinner Percent of Meal Consumed 0% Stool Size Small Stool Consistency soft Stool Color Brown # Bowel Movements 1 Weight 104 kg Patient Weight 11/10/17 23:59 Weight 104 kg - General physical appearance no distress - Respiratory normal expansion, normal respiratory effort - Cardiovascular Cardiovascular exam: Present: RRR - Abdomen Abdomen: Present: soft, tender (along midline) - Incision Incision: Present: clean and dry, intact, erythema - Integumentary no rash - Neurologic CN 2-12 grossly intact - Psychiatric oriented to time, oriented to person, oriented to place - Labs 11/10/17 03:54 11/10/17 03:54 Diabetes panel 11/10/17 Range/Units 03:54 Sodium 131 L (136-145) mEq/L Potassium 3.6 (3.5-5.1) mEq/L Chloride 99 (98-107) mEq/L Carbon Dioxide 25 (23-29) mEq/L BUN 8 (6-20) mg/dL Creatinine 0.57 L (0.70-1.30) mg/dL Glucose 103 (70-105) mg/dL Calcium 8.0 L (8.6-10.3) mg/dL Calcium panel 11/10/17 11/10/17 Range/Units 03:54 03:54 Calcium 8.0 L (8.6-10.3) mg/dL Phosphorus 2.7 (2.7-4.5) mg/dL Pituitary panel 11/10/17 Range/Units 03:54 Sodium 131 L (136-145) mEq/L Potassium 3.6 (3.5-5.1) mEq/L Chloride 99 (98-107) mEq/L Carbon Dioxide 25 (23-29) mEq/L BUN 8 (6-20) mg/dL Creatinine 0.57 L (0.70-1.30) mg/dL Glucose 103 (70-105) mg/dL Calcium 8.0 L (8.6-10.3) mg/dL Adrenal panel 11/10/17 Range/Units 03:54 Sodium 131 L (136-145) mEq/L Potassium 3.6 (3.5-5.1) mEq/L Chloride 99 (98-107) mEq/L Carbon Dioxide 25 (23-29) mEq/L BUN 8 (6-20) mg/dL Creatinine 0.57 L (0.70-1.30) mg/dL Glucose 103 (70-105) mg/dL Calcium 8.0 L (8.6-10.3) mg/dL - VTE Documentation of Mechanical Device: Intermittent pneumatic compression device Consult Discharge Plan - Plan Referrals: Manuel Webster MD [Partnered Physician] - 11/08/17 2:45 pm
--- NOTE | 2017-11-10 12:12 | Infectious Disease Progress No ---
Date of Encounter: 11/10/17 Time of Encounter: 12:09 - Assessment and Plan (1) Leukocytosis, unspecified Current Visit: Yes Status: Acute Likely secondary to infectious process. WBC increased to 24 today. Continue to trend. Qualifiers: Leukocytosis type: unspecified Qualified Code(s): D72.829 - Elevated white blood cell count, unspecified (2) Diverticulitis of colon with perforation Current Visit: Yes Status: Acute Severe sigmoid diverticulitis with perforation noted on CT scan 10/24/17. Repeat CT scan on 10/27/17 showed improvement in free air, but a new developing abscess was noted within the pelvis. Status post drain placement 10/27/17. Culture grew E. coli and. S. anginosus. Repeat CT scan 11/02/17 showed resolution of the initial abscess, but also showed worsening of second abscess. Discussed with Dr. Dinh with IR and reviewed CT. Concerned that there were actually multiple small abscesses within the abdomen that are not able to be drained percutaneously. Also a larger 5cm x 7cm fluid collection along the liver that was concerning for abscess as well. Status post lap converted to open peritoneal washout on Tuesday. Peritoneal fluid culture obtained and negative. Repeat CT scan this morning shows persistent microabscesses. CT scan reviewed radiologist who states it appears that the abscesses noted on today's CT scan appear to be the same foci of infection and that the abscess under the liver is still there, but improved in size (about 3cm). We had a long discussion with the patient regarding his clinical picture, the new CT scan results, and options for care. We discussed the risks, benefits, and alternatives of IV vs. PO antibiotics on discharge. Our recommendation is to continue IV antibiotics until seen in the outpatient clinic at which time we will repeat a CT scan and decide further antibiotic therapy based on the clinical picture at that time due to the persistent abscesses noted on the most recent CT scan. After the discussion with the patient and his , he agrees to be aggressive with IV antibiotics. Continue Levaquin 750mg IV daily. Continue flagyl 500mg TID IV. Can convert to PO when ready for discharge. Duration of treatment depends on the clinical picture. We will follow the patient in the clinic and re-check labs and a CT scan in a few weeks and go from there. We have advised the patient that he may need up to six weeks of IV antibiotics as this type of infection sometimes takes an extended period of time to resolve. Monitor renal and dose-adjust antibiotics. Consult VAT for midline insertion. child and family services specialist to assist with discharge planning. The patient is amenable to learning to give himself his IV antibiotics at home. Will need weekly CBC, BUN/Cr, ESR, CRP. Will need weekly midline care per protocol. Follow up with ID 11/24/17 at 1330. Qualifiers: Diverticulitis bleeding: without bleeding Qualified Code(s): K57.20 - Diverticulitis of large intestine with perforation and abscess without bleeding (3) Bilateral pleural effusion Current Visit: Yes Status: Acute Status post paracentesis on 10/31/17. Appears exudative per Light's Criteria, but gram stain and culture are negative. Low index of suspicion that this is infected. Continue to monitor closely. (4) SOB (shortness of breath) Current Visit: Yes Status: Resolved Likely secondary to pleural effusions. Resolved. (5) Acute respiratory failure with hypoxia Current Visit: Yes Status: Resolved Secondary to bilateral pleural effusions. Resolved. (6) Compression atelectasis Current Visit: Yes Status: Acute (7) Atrial fibrillation with RVR Current Visit: Yes Status: Resolved Likely secondary to infectious process. Still tachycardic, but improved and in sinus rhythm. Management per cardiology recommendations and the primary team. (8) Rash Current Visit: Yes Status: Acute Location: Anterior and posterior trunk. Etiology unclear, but concern for drug rash. Continue supportive care with antihistamines, loose-fitting clothing, and cool showers. Continue to monitor. (9) Postoperative ileus Current Visit: Yes Status: Acute KUB shows findings consistent with post-op ileus, which could be contributing to the patient's leukocytosis. CT scan shows atypical ileus, but patient tolerating PO and having bowel movements/passing gas. Management per the surgery team. - Subjective Interval history: Patient seen and examined. No acute events noted overnight. Patient sitting up in bed. Status post peritoneal washout Tuesday. Had NG tube and LUQ PRIYA drain removed on Tuesday. Denies fevers, chills, or rigors. Denies chest pain, shortness of breath. Reports a productive cough with small amount of thick white sputum that seems to be better today. Denies nausea, vomiting, or diarrhea now. Denies abdominal pain, urinary complaints, or appetite changes. Denies oral thrush. Reports a new-onset itchy rash that started Tuesday, but states it is no longer itchy. Tolerating full liquid/soft diet. Infect Dis PN-Objective Data - Labs CBC & Chem 7: 11/10/17 03:54 11/10/17 03:54 Labs: Laboratory Results - last 24 hr 11/10/17 11/10/17 11/10/17 03:54 03:54 03:54 WBC 24.3 H RBC 4.57 Hgb 13.6 Hct 41.4 MCV 90.6 MCH 29.8 MCHC 32.9 RDW 12.5 Plt Count 558 H MPV 8.8 L Immature Gran % 3.1 Seg Neutrophils % 80.9 Lymphocytes % 6.7 Monocytes % 4.8 Eosinophils % 3.9 Basophils % 0.6 Neutrophils # 19.7 H Lymphocytes # 1.6 Monocytes # 1.2 Eosinophils # 1.0 H Basophils # 0.2 Sodium 131 L Potassium 3.6 Chloride 99 Carbon Dioxide 25 BUN 8 Creatinine 0.57 L Est GFR ( Amer) > 60 Est GFR (Non-Af Amer) > 60 BUN/Creatinine Ratio 14 Glucose 103 Calculated Osmolality 271 L Calcium 8.0 L Phosphorus 2.7 Magnesium 1.9 Cultures: Cultures 11/04/17 20:17 Anaerobic Culture - Final Peritoneal Fluid No anaerobes were recovered. 11/04/17 20:17 Gram Stain - Final Peritoneal Fluid Body Fluid Culture - Final 11/02/17 14:15 Catheter Tip Culture - Final Intravenous or Arterial Cath No growth. 11/01/17 10:00 Body Fluid Culture - Final Pleural Fluid 11/01/17 10:00 Acid Fast Stain - Final Pleural Fluid 10/27/17 15:42 Blood Culture - Final Peripheral Venipuncture No growth. 10/27/17 14:18 Blood Culture - Final Peripheral Venipuncture No growth. 10/27/17 22:32 Anaerobic Culture - Final Aspirate No anaerobes were recovered. 10/27/17 22:32 Body Fluid Culture - Final Other-Specify in Comments Escherichia coli Streptococcus anginosus 10/27/17 20:00 Sputum Culture - Final Sputum Serology 11/01/17 11/01/17 Range/Units 09:45 09:45 Fluid LDH 497 (No Ref Range) Units/L Pleural Fluid Volume 850.0 mL Pleural Appearance Cloudy A (Clear) Pleural pH 8.00 (No Ref Range) pH Units Pleural RBC 0.013 H (0.000 - 0.002) M/mcL Pleural Tot Nuc Cell 4707 H (0-1000) TNC/mcL Pleural Neutrophils 64.3 % Pleural Band Neuts TNP Pleural Eosinophils 2.4 % Pleural Basophils TNP Pleural Lymphocytes % 9.5 % Pleural Monocytes % TNP Pleural Other Cells % 23.8 % Pleural Total Protein 3.4 (No Ref Range) g/dL Pleural Albumin 2.0 (No Ref Range) g/dL Pleural LDH 498 (No Ref Range) Units/L Pleural Glucose 123 (No Ref Range) mg/dL Pleural Amylase 26 (No Ref Range) Units/L Pleural Cholesterol 67 (No Ref Range) mg/dL Pleural Triglycerides 52 (No Ref Range) mg/dL - Impressions Impressions Abdomen/Pelvis CT 11/10/17 10:30 IMPRESSION: Multifocal pelvic and abdominal abscesses as described, overall appearing improved since previous study, however several small abscess ease are new. Please review above comments. Postsurgical sequela. Bilateral pleural effusion with bibasilar consolidation, right greater than left pneumonia is a consideration. . Small-bowel findings typical of adynamic ileus. Cholelithiasis. D/ / Yonathan Phillips / Yonathan Phillips Interpreting Provider: Yonathan Phillips Exam - Constitutional Vitals: Temp Pulse Resp BP Pulse Ox 98.1 F 90 14 132/99 96 11/10/17 11:00 11/10/17 11:00 11/10/17 11:00 11/10/17 11:00 11/10/17 11:00 General appearance: average body habitus, cooperative, no acute distress - Head Head exam: Present: atraumatic, normal inspection, normocephalic - Eye Eye exam: Present: EOMI, normal appearance, PERRL Pupils: Present: normal accommodation - ENT ENT exam: Present: mucous membranes moist - Neck Neck exam: Present: normal inspection - Respiratory Respiratory exam: Present: CTAB. Absent: rales, respiratory distress, rhonchi, wheezes - Cardiovascular Cardiovascular exam: Present: +S1, +S2, tachycardia - GI/Abdominal GI/Abdominal exam: Present: distended, normal bowel sounds, soft. Absent: tenderness Additional comments: Midline abdominal incision with small amount of old serous drainage noted on the dressing. Erythema and warmth surrounding the incision improved. Mehrdad intact. PRIYA drain to the bilateral lower quadrants with small amount of sanguinous drainage noted. - Extremities Exam Extremities exam: Absent: joint swelling, pedal edema, tenderness Additional comments: Macular erythematous rash noted to the BLE. - Neurological Exam Neurological exam: Present: alert, oriented X3, no focal deficits - Psychiatric Psychiatric exam: Present: normal affect, normal mood - Skin Skin exam: Present: dry, intact, normal color, rash (Anterior and posterior trunk, BLE; Macular, erythematous, non-itchy), warm - VTE Documentation of Mechanical Device: Intermittent pneumatic compression device Consult Discharge Plan - Plan Referrals: Manuel Webster MD [Partnered Physician] - 11/08/17 2:45 pm Rene Reina MD [Partnered Physician] - 11/24/17 1:30 pm - Attending Attestation I examined this patient and my medical decision-making was reviewed with the Resident Physician. I agree with the documented findings, disposition and treatment plan as described except to the extent set forth below. Went over the CT's with radiology still the abscess under the liver is mildly large at 4x2 cm (smaller than before ) multiple other small abscesses noted but smaller than before d/w Dr. Hernandez, will do IV antibiotics, repeat CT abdomen in 2 weeks and make further recommendations from their get midline placement d/c on levofloxacin and metronidazole weekly labs RTC in 2 weeks
[2017-11-10] MEDS: Levofloxacin 750 MG/150 ML 750 MG/150 ML BAG IVPB SCH (13:25)
[2017-11-10] MEDS ORDERED: Lidocaine -MPF 1% 5 ML AMPUL INFILT ONE (13:46)
[2017-11-10] MEDS: *HR* HYDROcodone/Acet 5/325 mg TABLET PO PRN (14:17)
[2017-11-10] MEDS: Ondansetron 4 MG/2 ML VIAL IVP PRN (14:17)
[2017-11-10] MEDS: *HR* HYDROmorphone (PF) 1 MG/ML SYRINGE IVP PRN ×2 (15:10→20:42)
[2017-11-10] MEDS: Melatonin 3 MG TABLET PO PRN (23:01)
[2017-11-11] MEDS: *HR* HYDROmorphone (PF) 1 MG/ML SYRINGE IVP PRN ×2 (00:59→05:17)
[2017-11-11] MEDS: *HR* Enoxaparin 40 MG/0.4 ML SYRINGE SQ SCH (05:17)
[2017-11-11] MEDS: MetroNIDAZOLE 500 MG/100 ML 500 MG/100 ML BAG IVPB SCH (05:18)
[2017-11-11] MEDS: Metoprolol XL (24 HR) Succ 25 MG TAB.ER.24H PO SCH (08:29)
[2017-11-11] MEDS: Aspirin Enteric Coated 81 MG Tablet PO SCH (08:29)
--- NOTE | 2017-11-11 08:43 | Discharge Summary ---
<Tayler Rodriguez Darci - Last Filed: 11/11/17 15:20> Date of Encounter: 11/11/17 Time of Encounter: 08:15 - Discharge Diagnosis (1) Diverticulitis of colon with perforation Priority: Primary Status: Acute Qualifiers: Diverticulitis bleeding: without bleeding Qualified Code(s): K57.20 - Diverticulitis of large intestine with perforation and abscess without bleeding (2) Bronchitis Priority: Secondary Status: Resolved (3) Atrial fibrillation with RVR Priority: Secondary Status: Resolved (4) Acute respiratory failure with hypoxia Priority: Secondary Status: Resolved (5) Bilateral pleural effusion Priority: Secondary Status: Resolved (6) Leukocytosis, unspecified Priority: Secondary Status: Acute Qualifiers: Leukocytosis type: unspecified Qualified Code(s): D72.829 - Elevated white blood cell count, unspecified (7) Rash Priority: Secondary Status: Acute (8) Hyponatremia Priority: Secondary Status: Acute (9) Postoperative ileus Priority: Secondary Status: Resolved - Discharge Medications Prescriptions: HYDROcodone/Acet 5/325 mg [[place] 5-325 mg] 1 tab PO Q4HR PRN #35 tablet PRN Reason: Moderate Pain DiphenhydraMINE [Benadryl] 25 mg PO Q6HR PRN #30 capsule PRN Reason: Itching Ondansetron ODT [Zofran ODT] 4 mg SL Q6HR PRN #30 tab.rapdis PRN Reason: Nausea Aspirin Enteric Coated [Aspirin EC] 81 mg PO DAILY #30 tablet. Levofloxacin 750 MG/150 ML [Levaquin Premix 750mg/150 mL] 750 mg IVPB DAILY #14 bag Metoprolol XL (24 HR) Succ [Toprol Xl] 25 mg PO DAILY #30 tab.er.24h MetroNIDAZOLE 500 MG/100 ML [Flagyl Premix 500 MG/100 ML] 500 mg IV TID #42 bag Nut.tx.impaired Digest Fxn [Ensure Clear] 1 bottle PO TID #42 can Polyhexam Biguan/Gauze Bandage [Curity Amd 4"X4" Non-Woven] 1 each TP DAILY #1 unit Polyhexam Biguan/Gauze Bandage [Curity Amd Packing Strips] 1 each TP DAILY #1 unit Swab [Cotton Swabs] 1 each MC DAILY #30 each Home Medications: Aspirin Enteric Coated [Aspirin EC] 81 mg PO DAILY #30 tablet.dr 11/11/17 [Rx] DiphenhydraMINE [Benadryl] 25 mg PO Q6HR PRN #30 capsule 11/11/17 [Rx] HYDROcodone/Acet 5/325 mg [[place] 5-325 mg] 1 tab PO Q4HR PRN #35 tablet [Rx] Levofloxacin 750 MG/150 ML [Levaquin Premix 750mg/150 mL] 750 mg IVPB DAILY #14 bag 11/11/17 [Rx] Metoprolol XL (24 HR) Succ [Toprol Xl] 25 mg PO DAILY #30 tab.er.24h 11/11/17 [ Rx] MetroNIDAZOLE 500 MG/100 ML [Flagyl Premix 500 MG/100 ML] 500 mg IV TID #42 bag 11/11/17 [Rx] Nut.tx.impaired Digest Fxn [Ensure Clear] 1 bottle PO TID #42 can 11/11/17 [Rx] Ondansetron ODT [Zofran ODT] 4 mg SL Q6HR PRN #30 tab.rapdis 11/11/17 [Rx] Polyhexam Biguan/Gauze Bandage [Curity Amd 4"X4" Non-Woven] 1 each TP DAILY #1 unit 11/11/17 [Rx] Polyhexam Biguan/Gauze Bandage [Curity Amd Packing Strips] 1 each TP DAILY #1 unit 11/11/17 [Rx] Swab [Cotton Swabs] 1 each MC DAILY #30 each 11/11/17 [Rx] Allergies/Adverse Reactions: 3 Allergy/AdvReac Type Severity Reaction Status Date / Time No Known Allergies Allergy Verified 10/24/17 09:31 General Surgery Exam Initial Vital Signs Temp Pulse Resp BP Pulse Ox 97.9 F 72 18 134/84 100 10/24/17 09:20 10/24/17 09:20 10/24/17 09:20 10/24/17 09:20 10/24/17 09:20 - General physical appearance well developed, well nourished, no distress, no pain - Eyes normal ocular movement - ENT normal mucosa, atraumatic, normocephalic - Neck trachea midline - Respiratory normal respiratory effort, clear to auscultation - Cardiovascular Cardiovascular exam: Present: RRR - Abdomen Abdomen general surgery: Present: bowel sounds present, soft, tender (minimal, expected tenderness), wound (PRIYA drain X 2 with serousang. drainage noted; Midline with 2 open areas with small amount of serousang. drainage noted) - Incision Incision: Present: open (2 open areas noted with small amount of serousang. drainage noted) - Integumentary Integumentary general surgery: Present: rash (generalized) - Neurologic Present: CN 2-12 grossly intact - Musculoskeletal Present: other (generalized edema noted (improving)) - Psychiatric Psychiatric general surgery: Present: appropriate, oriented to person, oriented to place, oriented to time, speech is normal, memory intact Date of admission: 10/24/17 14:55 Primary care physician: PCP NONE Consults: 10/29/17 13:03 Consult to Pulmonology [CONS] Routine Consulting Provider: [facility] [place] Reason for Consult: bilateral effusion/PNA Call Completed: Yes 11/02/17 10:06 Consult to Infectious Diseases [CONS] Routine Consulting Provider: [facility] [place] Reason for Consult: worsening leukocytosis Call Completed: Yes 11/10/17 09:08 Consult to Technology Consultant [CONS] Routine Reason for SW Consult: set up home health care for wound packing and drain care (plan discharge today or tomorrow) 11/10/17 13:46 Consult to Invasive Line Access Team [CONS] Routine Reason for Consult: Midline Levaquin 4-6 weeks Line Type: Midline PICC line indications: skilled nursing Med/Antibiotic Time Notified: 13:46 Call Completed: Yes Discharging clinician: Angel Hernandez ([facility]) Anticipated date of discharge: 11/11/17 - Patient Status Disposition: Home Health Service Condition: Good Functional capacity at discharge: independent ambulation Overall status at discharge: patient is progressing back to baseline - Discharge Instructions Instructions: Atrial Fibrillation (DC), Diverticulitis (DC), Low Fiber Diet ( GEN) Follow Up With: Rex Thayer MD [Partnered Physician] - (hospital follow-up atrial fibrillation office will call patient at home with appointment date and time) Angel Hernandez MD [Non-Partnered Physician] - 11/16/17 1:35 pm (hospital follow -up) Manuel Webster MD [Partnered Physician] - 11/16/17 10:45 am () Rene Reina MD [Partnered Physician] - 11/24/17 1:30 pm Additional Instructions: #1 may shower, no tub bath for 2 weeks #2 wash incisions with soap and water and pat dry daily- see wound care instructions #3 no lifting, pushing, pulling more than 15 pounds for the next 6 weeks #4 no driving until off narcotics for 24 hours and able to safely react in the car #5 may climb stairs Drain care- cleanse around the drains with soap and water and pat dry daily, apply split 4 x 4 gauze and tape to secure daily. Suspend drains while in the shower as to not allow tension on them. Empty drains 2 times daily and as needed and record outputs on drain records (mls) and bring to follow up appointment with Dr. Hernandez on 11/16/2017. Midline wound care- wash incision with soap and water daily in the shower and pat dry, PAC 2 open areas with a quarter inch plain gauze, cover with dry dressing, tape to secure. Midline IV access- home health to manage and follow protocol for midline care - Diet and Activity Activity: other (See additional instructions above) Diet: other (Low fiber diet for 8 weeks) - Hospital Course Hospital course: Mr. Garzon is a 42 year old male who presented to the hospital with acute onset of abdominal pain. He work-up revealed diverticulitis with perforation. He was admitted to the hospital and treated with conservative measures including bowel rest, IV antibiotics, supportive care and pain control. They patient did have a repeat CT due to a continued increase in WBC count. His CT showed evidence of a developing abscess. IR was consulted for drainage of abscess. They patient did develop atrial fibrillation with RVR. Cardiology was consulted for evaluation and management of atrial fibrillation. The patient did have atrial fibrillation for greater than 48 hours and converted with medications. He did have a picc line placed and TPN therapy was initiated for nutritional support. They patient also developed a pneumonia and bilateral pleural effusions. Pulmonary was consulted for management of his pneumonia. His pleural effusion was drained per interventional radiology. The patient did have significant clinical improvement, however his white blood cell count continued to rise. He was continued on IV antibiotic therapy and a repeat CT was complete. The patient did have an abscess around the sigmoid colon as well as several small abscess throughout the abdomen. Dr. Hernandez made a decision to take the patient to the operating room for exploratory lap and intra-abdominal wash out. They patient had 3 drains placed during his procedure. ID was consulted for IV antibiotic recommendations. They patient did develop and post-operative ileus and was treated with conservative measures. His diet was slowly advanced with return of bowel function. He is currently tolerating a soft diet and protein supplements without nausea/vomiting. He is passing flatus and having regular bowel movement. His vital signs are stable and he remains afebrile. His pain has improved daily and is associated with his midline incision. He did develop cellulitis around his midline incsion and 2 areas have been opened and packed. Drain #3 was removed during admission due to having no drainage. We will begin discharge planning to home with home health care. The patient will likely require 6 weeks of IV antibiotic therapy. - Time Spent with Patient Total time spent providing and/or coordinating discharge services: - Impressions ITS Impressions Chest X-Ray 10/26/17 09:15 IMPRESSION: Known minimal free air under the right hemidiaphragm. Bibasilar atelectasis. Minimal left pleural effusion. Increased lung markings at the bilateral parahilar regions, may be related to bronchitis. The results were sent to radiology results communication. D/ / Jose G Rubalcava MD / Jose G Rubalcava MD Interpreting Provider: Jose G Rubalcava MD Retroperitoneal Abscess Drainage 10/27/17 00:00 IMPRESSION: Successful CT guided placement of a 12 [place] trans gluteal pelvic abscess drainage catheter. D/ / Sheldon Dinh MD / Sheldon Dinh MD Interpreting Provider: Sheldon Dinh MD Abdomen/Pelvis CT 10/27/17 11:15 IMPRESSION: Near complete resolution of intra-abdominal free air. There is a developing abscess seen within the pelvis posteriorly, and a small loculated fluid component anteriorly on the right. Scattered areas of inflammation are seen within the lower abdominal -pelvic mesentery. , likely secondary to perforated diverticulitis Proximal small bowel loops are dilated secondary to small bowel wall thickening in the right lower quadrant. Inflammatory process within the pelvis likely accounts for the small bowel wall thickening in the right lower quadrant, creating a partial small bowel obstruction. Oral contrast is seen in the colon D/ / Raphael Gandhi MD / Raphael Gandhi MD Interpreting Provider: Raphael Gandhi MD Chest CT 10/27/17 11:15 IMPRESSION: Near complete resolution of intra-abdominal free air. There is a developing abscess seen within the pelvis posteriorly, and a small loculated fluid component anteriorly on the right. Scattered areas of inflammation are seen within the lower abdominal -pelvic mesentery. , likely secondary to perforated diverticulitis Proximal small bowel loops are dilated secondary to small bowel wall thickening in the right lower quadrant. Inflammatory process within the pelvis likely accounts for the small bowel wall thickening in the right lower quadrant, creating a partial small bowel obstruction. Oral contrast is seen in the colon D/ / Raphael Gandhi MD / Raphael Gandhi MD Interpreting Provider: Raphael Gandhi MD Echocardiogram 10/28/17 20:56 Impressions: LVEF 60-65%. Normal LV chamber size and function. Mild to moderate concentric left ventricular hypertrophy. Indeterminate diastolic function. Normal right ventricular structure and function. Moderately dilated left atrium. No significant valvular dysfunction. No evidence of pulmonary hypertension. Left Ventricular Wall Motion: Rest Echo Findings All wall segments showed normal motion. Findings: Study Quality * Technically adequate exam. ECG Findings * Atrial fibrillation. Left Ventricle * LVEF 60-65%. * Normal LV chamber size and function. * Mild to moderate concentric left ventricular hypertrophy. * Indeterminate diastolic function. Right Ventricle * Normal right ventricular structure and function. Left Atrium * Moderately dilated left atrium. Right Atrium * Mildly dilated right atrium. Aortic Valve * Aortic valve not well visualized. * No aortic regurgitation. * No aortic stenosis. Mitral Valve * Normal mitral valve structure and function. * No mitral stenosis. * Trace mitral regurgitation. Tricuspid Valve * Normal tricuspid valve structure and function. * Trace tricuspid regurgitation. * No evidence of pulmonary hypertension. Pulmonic Valve * Normal pulmonic valve structure and function. * No pulmonic regurgitation. Aorta * Normally sized aortic root. Pericardium * The pericardium appears normal. IVC * Normal IVC dimensions and inspiratory collapse. Pulmonary Artery * Normal visualized portions of the main pulmonary artery. Chest X-Ray 10/29/17 06:00 IMPRESSION: Worsening CHF with mild pulmonary edema and/or superimposed pneumonia. D/ / Colton Bailon MD / Colton Bailon MD Interpreting Provider: Colton Bailon MD Chest CTA 10/30/17 09:45 IMPRESSION: 1. No acute pulmonary emboli, aortic dissection or aneurysm 2. Moderate pleural effusions with significant compressive atelectasis of the lower lobes. D/ / Tunde Aburto MD / Tunde Aburto MD Interpreting Provider: Tunde Aburto MD Abdomen/Pelvis CT 10/31/17 12:15 IMPRESSION: Dominant posterior pelvic fluid collection seen on prior examination dated 10/27/2017 has been evacuated with mild residual fluid and inflammatory stranding in its place. A 2nd smaller abscess superior to the level of the sigmoid colon is slightly larger in size as compared to prior examination, measuring approximately 3.7 x 2.2 cm. Loculated fluid along the inferior margin of the liver is not significantly changed. Dilated small bowel loops are seen with gradual transition to more decompressed distal small bowel, concerning for small bowel obstruction. Moderate bilateral pleural effusions, increased since prior, with bilateral lower lobe atelectasis or pneumonia. D/ / Dharmesh Jonas MD / Dharmesh Jonas MD Interpreting Provider: Dharmesh Jonas MD Thoracentesis Ultrasound 11/01/17 00:00 IMPRESSION: Successful ultrasound guided thoracentesis. D/ / Raphael Jackson MD / Raphael Jackson MD Interpreting Provider: Raphael Jackson MD Chest X-Ray 11/01/17 10:12 IMPRESSION: Slight interval decrease in size of right pleural effusion. Persistent bibasilar opacities. No pneumothorax. D/ / Lennie Arnett MD / Lennie Arnett MD Interpreting Provider: Lennie Arnett MD Abdomen/Pelvis CT 11/02/17 12:45 IMPRESSION: 1. The intrapelvic abscess adjacent to the sigmoid colon seen on the previous exam is slightly larger on today's study. 2. Perirectal pigtail drainage catheter in the lower pelvis is unchanged with no evidence of recurrent abscess in this region. 3. Dilated proximal small bowel loops raise concern for ileus, possibly related to distal small bowel inflammation from the adjacent intrapelvic abscess. No focal transition point is identified to indicate high grade obstruction. 4. Perihepatic ascites along the inferior margin of the liver appears stable. D/ / Leodan Perez MD / Leodan Perez MD Interpreting Provider: Leodan Perez MD Chest/Abdomen X-ray 11/09/17 08:00 IMPRESSION: Bilateral pleural effusions with overlying atelectatic changes. Multiple dilated loops of bowel seen within the abdomen likely secondary to ileus. D/ / 11/09/2017 09:08:31 Garrett Silva MD / [email or web address] Interpreting Provider: Garrett Silva MD Abdomen/Pelvis CT 11/10/17 10:30 IMPRESSION: Multifocal pelvic and abdominal abscesses as described, overall appearing improved since previous study, however several small abscess ease are new. Please review above comments. Postsurgical sequela. Bilateral pleural effusion with bibasilar consolidation, right greater than left pneumonia is a consideration. . Small-bowel findings typical of adynamic ileus. Cholelithiasis. D/ / Yonathan Phillips / Yonathan Phillips Interpreting Provider: Yonathan Phillips <Angel Hernandez - Last Filed: 11/11/17 20:47> Date of Encounter: 11/11/17 - Discharge Diagnosis (1) Diverticulitis of colon with perforation Status: Acute Qualifiers: Diverticulitis bleeding: without bleeding Qualified Code(s): K57.20 - Diverticulitis of large intestine with perforation and abscess without bleeding General Surgery Exam Initial Vital Signs Temp Pulse Resp BP Pulse Ox 97.9 F 72 18 134/84 100 10/24/17 09:20 10/24/17 09:20 10/24/17 09:20 10/24/17 09:20 10/24/17 09:20 Date of admission: 10/24/17 14:55 Primary care physician: PCP NONE Consults: 10/29/17 13:03 Consult to Pulmonology [CONS] Routine Consulting Provider: [facility] [place] Reason for Consult: bilateral effusion/PNA Call Completed: Yes 11/02/17 10:06 Consult to Infectious Diseases [CONS] Routine Consulting Provider: [facility] [place] Reason for Consult: worsening leukocytosis Call Completed: Yes 11/10/17 09:08 Consult to Technology Consultant [CONS] Routine Reason for SW Consult: set up home health care for wound packing and drain care (plan discharge today or tomorrow) 11/10/17 13:46 Consult to Invasive Line Access Team [CONS] Routine Reason for Consult: Midline Levaquin 4-6 weeks Line Type: Midline PICC line indications: skilled nursing Med/Antibiotic Time Notified: 13:46 Call Completed: Yes - Hospital Course Hospital course: Mr. Garzon is a 42 year old male - Time Spent with Patient Total time spent providing and/or coordinating discharge services: Labs on day of discharge: Labs from last 24 hours 11/11/17 11/11/17 12:22 12:22 WBC 23.0 H RBC 4.57 Hgb 13.9 Hct 41.1 MCV 89.9 MCH 30.4 MCHC 33.8 RDW 12.5 Plt Count 482 H MPV 8.9 L Immature Gran % 3.3 Seg Neutrophils % 80.3 Lymphocytes % 6.4 Monocytes % 4.4 Eosinophils % 5.1 Basophils % 0.5 Neutrophils # 18.5 H Lymphocytes # 1.5 Monocytes # 1.0 Eosinophils # 1.2 H Basophils # 0.1 Nucleated RBCs/100 WBC 0.1 H Sodium 129 L Potassium 4.5 Chloride 101 Carbon Dioxide 22 L BUN 9 Creatinine 0.55 L Est GFR ( Amer) > 60 Est GFR (Non-Af Amer) > 60 BUN/Creatinine Ratio 16 Glucose 102 Calculated Osmolality 267 L Calcium 7.7 L - Impressions ITS Impressions Chest X-Ray 10/26/17 09:15 IMPRESSION: Known minimal free air under the right hemidiaphragm. Bibasilar atelectasis. Minimal left pleural effusion. Increased lung markings at the bilateral parahilar regions, may be related to bronchitis. The results were sent to radiology results communication. D/ / Jose G Rubalcava MD / Jose G Rubalcava MD Interpreting Provider: Jose G Rubalcava MD Retroperitoneal Abscess Drainage 10/27/17 00:00 IMPRESSION: Successful CT guided placement of a 12 [place] trans gluteal pelvic abscess drainage catheter. D/ / Sheldon Dinh MD / Sheldon Dinh MD Interpreting Provider: Sheldon Dinh MD Abdomen/Pelvis CT 10/27/17 11:15 IMPRESSION: Near complete resolution of intra-abdominal free air. There is a developing abscess seen within the pelvis posteriorly, and a small loculated fluid component anteriorly on the right. Scattered areas of inflammation are seen within the lower abdominal -pelvic mesentery. , likely secondary to perforated diverticulitis Proximal small bowel loops are dilated secondary to small bowel wall thickening in the right lower quadrant. Inflammatory process within the pelvis likely accounts for the small bowel wall thickening in the right lower quadrant, creating a partial small bowel obstruction. Oral contrast is seen in the colon D/ / Raphael Gandhi MD / Raphael Gandhi MD Interpreting Provider: Raphael Gandhi MD Chest CT 10/27/17 11:15 IMPRESSION: Near complete resolution of intra-abdominal free air. There is a developing abscess seen within the pelvis posteriorly, and a small loculated fluid component anteriorly on the right. Scattered areas of inflammation are seen within the lower abdominal -pelvic mesentery. , likely secondary to perforated diverticulitis Proximal small bowel loops are dilated secondary to small bowel wall thickening in the right lower quadrant. Inflammatory process within the pelvis likely accounts for the small bowel wall thickening in the right lower quadrant, creating a partial small bowel obstruction. Oral contrast is seen in the colon D/ / Raphael Gandhi MD / Raphael Gandhi MD Interpreting Provider: Raphael Gandhi MD Echocardiogram 10/28/17 20:56 Impressions: LVEF 60-65%. Normal LV chamber size and function. Mild to moderate concentric left ventricular hypertrophy. Indeterminate diastolic function. Normal right ventricular structure and function. Moderately dilated left atrium. No significant valvular dysfunction. No evidence of pulmonary hypertension. Left Ventricular Wall Motion: Rest Echo Findings All wall segments showed normal motion. Findings: Study Quality * Technically adequate exam. ECG Findings * Atrial fibrillation. Left Ventricle * LVEF 60-65%. * Normal LV chamber size and function. * Mild to moderate concentric left ventricular hypertrophy. * Indeterminate diastolic function. Right Ventricle * Normal right ventricular structure and function. Left Atrium * Moderately dilated left atrium. Right Atrium * Mildly dilated right atrium. Aortic Valve * Aortic valve not well visualized. * No aortic regurgitation. * No aortic stenosis. Mitral Valve * Normal mitral valve structure and function. * No mitral stenosis. * Trace mitral regurgitation. Tricuspid Valve * Normal tricuspid valve structure and function. * Trace tricuspid regurgitation. * No evidence of pulmonary hypertension. Pulmonic Valve * Normal pulmonic valve structure and function. * No pulmonic regurgitation. Aorta * Normally sized aortic root. Pericardium * The pericardium appears normal. IVC * Normal IVC dimensions and inspiratory collapse. Pulmonary Artery * Normal visualized portions of the main pulmonary artery. Chest X-Ray 10/29/17 06:00 IMPRESSION: Worsening CHF with mild pulmonary edema and/or superimposed pneumonia. D/ / Colton Bailon MD / Colton Bailon MD Interpreting Provider: Colton Bailon MD Chest CTA 10/30/17 09:45 IMPRESSION: 1. No acute pulmonary emboli, aortic dissection or aneurysm 2. Moderate pleural effusions with significant compressive atelectasis of the lower lobes. D/ / Tunde Aburto MD / Tunde Aburto MD Interpreting Provider: Tunde Aburto MD Abdomen/Pelvis CT 10/31/17 12:15 IMPRESSION: Dominant posterior pelvic fluid collection seen on prior examination dated 10/27/2017 has been evacuated with mild residual fluid and inflammatory stranding in its place. A 2nd smaller abscess superior to the level of the sigmoid colon is slightly larger in size as compared to prior examination, measuring approximately 3.7 x 2.2 cm. Loculated fluid along the inferior margin of the liver is not significantly changed. Dilated small bowel loops are seen with gradual transition to more decompressed distal small bowel, concerning for small bowel obstruction. Moderate bilateral pleural effusions, increased since prior, with bilateral lower lobe atelectasis or pneumonia. D/ / Dharmesh Jonas MD / Dharmesh Jonas MD Interpreting Provider: Dharmesh Jonas MD Thoracentesis Ultrasound 11/01/17 00:00 IMPRESSION: Successful ultrasound guided thoracentesis. D/ / Raphael Jackson MD / Raphael Jackson MD Interpreting Provider: Raphael Jackson MD Chest X-Ray 11/01/17 10:12 IMPRESSION: Slight interval decrease in size of right pleural effusion. Persistent bibasilar opacities. No pneumothorax. D/ / Lennie Arnett MD / Lennie Arnett MD Interpreting Provider: Lennie Arnett MD Abdomen/Pelvis CT 11/02/17 12:45 IMPRESSION: 1. The intrapelvic abscess adjacent to the sigmoid colon seen on the previous exam is slightly larger on today's study. 2. Perirectal pigtail drainage catheter in the lower pelvis is unchanged with no evidence of recurrent abscess in this region. 3. Dilated proximal small bowel loops raise concern for ileus, possibly related to distal small bowel inflammation from the adjacent intrapelvic abscess. No focal transition point is identified to indicate high grade obstruction. 4. Perihepatic ascites along the inferior margin of the liver appears stable. D/ / Leodan Perez MD / Leodan Perez MD Interpreting Provider: Leodan Perez MD Chest/Abdomen X-ray 11/09/17 08:00 IMPRESSION: Bilateral pleural effusions with overlying atelectatic changes. Multiple dilated loops of bowel seen within the abdomen likely secondary to ileus. D/ / 11/09/2017 09:08:31 Garrett Silva MD / lori Interpreting Provider: Garrett Silva MD Abdomen/Pelvis CT 11/10/17 10:30 IMPRESSION: Multifocal pelvic and abdominal abscesses as described, overall appearing improved since previous study, however several small abscess ease are new. Please review above comments. Postsurgical sequela. Bilateral pleural effusion with bibasilar consolidation, right greater than left pneumonia is a consideration. . Small-bowel findings typical of adynamic ileus. Cholelithiasis. D/ / Yonathan Phillips / Yonathan Phillips Interpreting Provider: Yonathan Phillips - Attending Attestation I have personally seen and examined the patient. I have reviewed pertinent labs , imaging, progress notes, including this one. I agree with the above assessment and plan.
[2017-11-11] MEDS: *HR* HYDROcodone/Acet 5/325 mg TABLET PO PRN ×2 (09:17→13:04)
--- NOTE | 2017-11-11 09:37 | Physician Discharge Referral ---
<Tayler Rodriguez - Last Filed: 11/11/17 09:34> Home Health/Hosp Referral Info Transfer to: Home Health Attending Provider: Dr. Angel Hernandez Provider in Charge Post Discharge: Other (Dr. Angel Hernandez) - Diagnosis (1) Diverticulitis of colon with perforation Priority: Primary Status: Acute (2) Bronchitis Priority: Secondary Status: Resolved (3) Atrial fibrillation with RVR Priority: Secondary Status: Resolved (4) Acute respiratory failure with hypoxia Priority: Secondary Status: Resolved (5) Bilateral pleural effusion Priority: Secondary Status: Acute (6) Leukocytosis, unspecified Priority: Secondary Status: Acute (7) Rash Priority: Secondary Status: Acute (8) Hyponatremia Priority: Secondary Status: Acute (9) Postoperative ileus Priority: Secondary Status: Resolved - Respiratory Orders None Smoking Cessation: Smoking cessation has been advised. For more information, call the [employer] Tobacco Quit Line at 6-869-ZUHX-NOW. - Dressing/Wound Care Site: Pigtail drainage catheters X 2- Drain care- cleanse around the drains with soap and water and pat dry daily, apply split 4 x 4 gauze and tape to secure daily. Suspend drains while in the shower as to not allow tension on them. Empty drains 2 times daily and as needed and record outputs on drain records (mls) and bring to follow up appointment with Dr. Hernandez on 11/16/2017. Midline wound- Midline wound care- wash incision with soap and water daily in the shower and pat dry, PAC 2 open areas with a quarter inch plain gauze, cover with dry dressing, tape to secure. Midline IV catheter- follow protocols for midline per home health care Type of Dressing/Treatments w/Frequency: Pigtail drainage catheters X 2- Drain care- cleanse around the drains with soap and water and pat dry daily, apply split 4 x 4 gauze and tape to secure daily. Suspend drains while in the shower as to not allow tension on them. Empty drains 2 times daily and as needed and record outputs on drain records (mls) and bring to follow up appointment with Dr. Hernandez on 11/16/2017. Midline wound- Midline wound care- wash incision with soap and water daily in the shower and pat dry, PAC 2 open areas with a quarter inch plain gauze, cover with dry dressing, tape to secure. Midline IV catheter- follow protocols for midline per home health care - Diet/Nutrition Diet/Nutrition Orders: Regular (Low fiber diet for 8 weeks) - Activity Activity Orders: Up ad ana rosa - Services Needed Following services are medically necessary services: Group Home Care Orders: Pigtail drainage catheters X 2- Drain care- cleanse around the drains with soap and water and pat dry daily, apply split 4 x 4 gauze and tape to secure daily. Suspend drains while in the shower as to not allow tension on them. Empty drains 2 times daily and as needed and record outputs on drain records (mls) and bring to follow up appointment with Dr. Hernandez on 11/16/2017. Midline wound- Midline wound care- wash incision with soap and water daily in the shower and pat dry, PAC 2 open areas with a quarter inch plain gauze, cover with dry dressing, tape to secure. Midline IV catheter- follow protocols for midline per home health care - Transfer Medications Prescriptions: HYDROcodone/Acet 5/325 mg [[place] 5-325 mg] 1 tab PO Q4HR PRN #35 tablet PRN Reason: Moderate Pain DiphenhydraMINE [Benadryl] 25 mg PO Q6HR PRN #30 capsule PRN Reason: Itching Ondansetron ODT [Zofran ODT] 4 mg SL Q6HR PRN #30 tab.rapdis PRN Reason: Nausea Aspirin Enteric Coated [Aspirin EC] 81 mg PO DAILY #30 tablet. Levofloxacin 750 MG/150 ML [Levaquin Premix 750mg/150 mL] 750 mg IVPB DAILY #14 bag Metoprolol XL (24 HR) Succ [Toprol Xl] 25 mg PO DAILY #30 tab.er.24h MetroNIDAZOLE 500 MG/100 ML [Flagyl Premix 500 MG/100 ML] 500 mg IV TID #42 bag Nut.tx.impaired Digest Fxn [Ensure Clear] 1 bottle PO TID #42 can Polyhexam Biguan/Gauze Bandage [Curity Amd 4"X4" Non-Woven] 1 each TP DAILY #1 unit Polyhexam Biguan/Gauze Bandage [Curity Amd Packing Strips] 1 each TP DAILY #1 unit Swab [Cotton Swabs] 1 each MC DAILY #30 each Home Medications: Aspirin Enteric Coated [Aspirin EC] 81 mg PO DAILY #30 tablet. 11/11/17 [Rx] DiphenhydraMINE [Benadryl] 25 mg PO Q6HR PRN #30 capsule 11/11/17 [Rx] HYDROcodone/Acet 5/325 mg [[place] 5-325 mg] 1 tab PO Q4HR PRN #35 tablet [Rx] Levofloxacin 750 MG/150 ML [Levaquin Premix 750mg/150 mL] 750 mg IVPB DAILY #14 bag 11/11/17 [Rx] Metoprolol XL (24 HR) Succ [Toprol Xl] 25 mg PO DAILY #30 tab.er.24h 11/11/17 [ Rx] MetroNIDAZOLE 500 MG/100 ML [Flagyl Premix 500 MG/100 ML] 500 mg IV TID #42 bag 11/11/17 [Rx] Nut.tx.impaired Digest Fxn [Ensure Clear] 1 bottle PO TID #42 can 11/11/17 [Rx] Ondansetron ODT [Zofran ODT] 4 mg SL Q6HR PRN #30 tab.rapdis 11/11/17 [Rx] Polyhexam Biguan/Gauze Bandage [Curity Amd 4"X4" Non-Woven] 1 each TP DAILY #1 unit 11/11/17 [Rx] Polyhexam Biguan/Gauze Bandage [Curity Amd Packing Strips] 1 each TP DAILY #1 unit 11/11/17 [Rx] Swab [Cotton Swabs] 1 each MC DAILY #30 each 11/11/17 [Rx] Allergies/Adverse Reactions: 3 Allergy/AdvReac Type Severity Reaction Status Date / Time No Known Allergies Allergy Verified 10/24/17 09:31 Certification: Further, I certify that my clinical findings support that this patient is homebound (i.e. absences from home require considerable and taxing effort and are for medical reasons or adventist services or infrequently or short duration when for other reasons) because: Homebound Reason: Patient requires assistance of a person or device to safely leave home, Post-surgery restriction and or conditions limit ability to leave home, Leaving home requires considerable and taxing effort due to condition Attestation: My signature below is to certify that this patient is under my care and that I, or nurse practitioner, or a physician's service assistant working with me, has a face-to -face encounter with this patient. <MaryItzAngel J - Last Filed: 11/11/17 20:42> - Diagnosis (1) Diverticulitis of colon with perforation Status: Acute - Respiratory Orders Smoking Cessation: Smoking cessation has been advised. For more information, call the [place] Tobacco Quit Line at 3-306-PEFQ-NOW. Certification: Further, I certify that my clinical findings support that this patient is homebound (i.e. absences from home require considerable and taxing effort and are for medical reasons or adventist services or infrequently or short duration when for other reasons) because: Attestation: My signature below is to certify that this patient is under my care and that I, or nurse practitioner, or a physician's service assistant working with me, has a face-to -face encounter with this patient. I have personally seen and examined the patient. I have reviewed pertinent labs , imaging, progress notes, including this one. I agree with the above assessment and plan.
[2017-11-11 11:56] VITALS: BP 124/81
--- NOTE | 2017-11-11 12:01 | Infectious Disease Progress No ---
Date of Encounter: 11/11/17 Time of Encounter: 11:59 - Assessment and Plan (1) Leukocytosis, unspecified Current Visit: Yes Status: Acute Likely secondary to infectious process. No labs checked today. Will get CBC and BMP prior to discharge. Continue to trend. Qualifiers: Leukocytosis type: unspecified Qualified Code(s): D72.829 - Elevated white blood cell count, unspecified (2) Diverticulitis of colon with perforation Current Visit: Yes Status: Acute Severe sigmoid diverticulitis with perforation noted on CT scan 10/24/17. Repeat CT scan on 10/27/17 showed improvement in free air, but a new developing abscess was noted within the pelvis. Status post drain placement 10/27/17. Culture grew E. coli and. S. anginosus. Repeat CT scan 11/02/17 showed resolution of the initial abscess, but also showed worsening of second abscess. Discussed with Dr. Dinh with IR and reviewed CT. Concerned that there were actually multiple small abscesses within the abdomen that are not able to be drained percutaneously. Also a larger 5cm x 7cm fluid collection along the liver that was concerning for abscess as well. Status post lap converted to open peritoneal washout on Tuesday. Peritoneal fluid culture obtained and negative. Repeat CT scan this morning shows persistent microabscesses. CT scan reviewed radiologist who states it appears that the abscesses noted on today's CT scan appear to be the same foci of infection and that the abscess under the liver is still there, but improved in size (about 3cm). We had a long discussion with the patient regarding his clinical picture, the new CT scan results, and options for care. We discussed the risks, benefits, and alternatives of IV vs. PO antibiotics on discharge. Our recommendation is to continue IV antibiotics until seen in the outpatient clinic at which time we will repeat a CT scan and decide further antibiotic therapy based on the clinical picture at that time due to the persistent abscesses noted on the most recent CT scan. After the discussion with the patient and his , he agrees to be aggressive with IV antibiotics. Continue Levaquin 750mg IV daily. Continue flagyl 500mg TID IV. Can convert to PO when ready for discharge. Duration of treatment depends on the clinical picture. We will follow the patient in the clinic and re-check labs and a CT scan in a few weeks and go from there. We have advised the patient that he may need up to six weeks of IV antibiotics as this type of infection sometimes takes an extended period of time to resolve. Monitor renal and dose-adjust antibiotics. Consult VAT for midline insertion. behavioral services tech to assist with discharge planning. The patient is amenable to learning to give himself his IV antibiotics at home. Will need weekly CBC, BUN/Cr, ESR, CRP. Will need weekly midline care per protocol. Follow up with ID 11/24/17 at 1330. Qualifiers: Diverticulitis bleeding: without bleeding Qualified Code(s): K57.20 - Diverticulitis of large intestine with perforation and abscess without bleeding (3) Bilateral pleural effusion Current Visit: Yes Status: Resolved Status post paracentesis on 10/31/17. Appears exudative per Light's Criteria, but gram stain and culture are negative. Low index of suspicion that this is infected. Continue to monitor closely. (4) SOB (shortness of breath) Current Visit: Yes Status: Resolved Likely secondary to pleural effusions. Resolved. (5) Acute respiratory failure with hypoxia Current Visit: Yes Status: Resolved Secondary to bilateral pleural effusions. Resolved. (6) Compression atelectasis Current Visit: Yes Status: Acute (7) Atrial fibrillation with RVR Current Visit: Yes Status: Resolved Likely secondary to infectious process. Still tachycardic, but improved and in sinus rhythm. Management per cardiology recommendations and the primary team. (8) Rash Current Visit: Yes Status: Acute Location: Anterior and posterior trunk. Now spread to the upper extremities, but appears more faint and is not bothersome to the patient. Etiology unclear, but concern for drug rash. Continue supportive care with antihistamines, loose-fitting clothing, and cool showers. Continue to monitor. (9) Postoperative ileus Current Visit: Yes Status: Resolved KUB shows findings consistent with post-op ileus, which could be contributing to the patient's leukocytosis. CT scan shows atypical ileus, but patient tolerating PO and having bowel movements/passing gas. Management per the surgery team. - Subjective Interval history: Patient seen and examined. No acute events noted overnight. Patient sitting up in the bedside chair. Status post peritoneal washout Tuesday. Had NG tube and LUQ PRIYA drain removed on Tuesday. Denies fevers, chills, or rigors. Denies chest pain, shortness of breath. Reports a productive cough with small amount of thick white sputum that seems to be better today. Denies nausea, vomiting, or diarrhea now. Denies abdominal pain, urinary complaints, or appetite changes. Denies oral thrush. Reports rash continues to spread, but is not itchy. Tolerating regular diet. Infect Dis PN-Objective Data - Labs CBC & Chem 7: 11/10/17 03:54 11/10/17 03:54 Cultures: Cultures 11/04/17 20:17 Anaerobic Culture - Final Peritoneal Fluid No anaerobes were recovered. 11/04/17 20:17 Gram Stain - Final Peritoneal Fluid Body Fluid Culture - Final 11/02/17 14:15 Catheter Tip Culture - Final Intravenous or Arterial Cath No growth. 11/01/17 10:00 Body Fluid Culture - Final Pleural Fluid 11/01/17 10:00 Acid Fast Stain - Final Pleural Fluid 10/27/17 15:42 Blood Culture - Final Peripheral Venipuncture No growth. 10/27/17 14:18 Blood Culture - Final Peripheral Venipuncture No growth. 10/27/17 22:32 Anaerobic Culture - Final Aspirate No anaerobes were recovered. 10/27/17 22:32 Body Fluid Culture - Final Other-Specify in Comments Escherichia coli Streptococcus anginosus 10/27/17 20:00 Sputum Culture - Final Sputum Serology 11/01/17 11/01/17 Range/Units 09:45 09:45 Fluid LDH 497 (No Ref Range) Units/L Pleural Fluid Volume 850.0 mL Pleural Appearance Cloudy A (Clear) Pleural pH 8.00 (No Ref Range) pH Units Pleural RBC 0.013 H (0.000 - 0.002) M/mcL Pleural Tot Nuc Cell 4707 H (0-1000) TNC/mcL Pleural Neutrophils 64.3 % Pleural Band Neuts TNP Pleural Eosinophils 2.4 % Pleural Basophils TNP Pleural Lymphocytes % 9.5 % Pleural Monocytes % TNP Pleural Other Cells % 23.8 % Pleural Total Protein 3.4 (No Ref Range) g/dL Pleural Albumin 2.0 (No Ref Range) g/dL Pleural LDH 498 (No Ref Range) Units/L Pleural Glucose 123 (No Ref Range) mg/dL Pleural Amylase 26 (No Ref Range) Units/L Pleural Cholesterol 67 (No Ref Range) mg/dL Pleural Triglycerides 52 (No Ref Range) mg/dL Exam - Constitutional Vitals: Temp Pulse Resp BP Pulse Ox 98.2 F 91 14 124/81 94 11/11/17 11:53 11/11/17 11:53 11/11/17 11:53 11/11/17 11:53 11/11/17 11:53 General appearance: average body habitus, cooperative, no acute distress - Head Head exam: Present: atraumatic, normal inspection, normocephalic - Eye Eye exam: Present: EOMI, normal appearance, PERRL Pupils: Present: normal accommodation - ENT ENT exam: Present: mucous membranes moist - Neck Neck exam: Present: normal inspection - Respiratory Respiratory exam: Present: CTAB. Absent: rales, respiratory distress, rhonchi, wheezes - Cardiovascular Cardiovascular exam: Present: RRR, +S1, +S2 - GI/Abdominal GI/Abdominal exam: Present: normal bowel sounds, soft. Absent: distended, tenderness Additional comments: Midline abdominal incision with packing noted. Scant serous dark yellow drainage noted on the dressing. PRIYA drain noted to the RLQ and LLQ with small amount of sanguinous drainage noted. Previous drain site to the LUQ with dressing with small amount of shadow drainage. - Extremities Exam Extremities exam: Present: normal inspection. Absent: joint swelling, pedal edema, tenderness - Neurological Exam Neurological exam: Present: alert, oriented X3, no focal deficits - Psychiatric Psychiatric exam: Present: normal affect, normal mood - Skin Skin exam: Present: dry, intact, normal color, warm - Additional findings Additional findings: Midline noted to the LUE with transparent dressing C/D/I. - VTE Documentation of Mechanical Device: Intermittent pneumatic compression device Consult Discharge Plan - Plan Instructions: Low Fiber Diet (GEN) Additional Instructions: #1 may shower, no tub bath for 2 weeks #2 wash incisions with soap and water and pat dry daily- see wound care instructions #3 no lifting, pushing, pulling more than 15 pounds for the next 6 weeks #4 no driving until off narcotics for 24 hours and able to safely react in the car #5 may climb stairs Drain care- cleanse around the drains with soap and water and pat dry daily, apply split 4 x 4 gauze and tape to secure daily. Suspend drains while in the shower as to not allow tension on them. Empty drains 2 times daily and as needed and record outputs on drain records (mls) and bring to follow up appointment with Dr. Hernandez on 11/16/2017. Midline wound care- wash incision with soap and water daily in the shower and pat dry, PAC 2 open areas with a quarter inch plain gauze, cover with dry dressing, tape to secure. Midline IV access- home health to manage and follow protocol for midline care Referrals: Rex Thayer MD [Partnered Physician] - (hospital follow-up atrial fibrillation office will call patient at home with appointment date and time) Angel Hernandez MD [Non-Partnered Physician] - 11/16/17 1:35 pm (hospital follow -up) Manuel Webster MD [Partnered Physician] - 11/16/17 10:45 am () Rene Reina MD [Partnered Physician] - 11/24/17 1:30 pm Prescriptions: HYDROcodone/Acet 5/325 mg [[place] 5-325 mg] 1 tab PO Q4HR PRN #35 tablet PRN Reason: Moderate Pain DiphenhydraMINE [Benadryl] 25 mg PO Q6HR PRN #30 capsule PRN Reason: Itching Ondansetron ODT [Zofran ODT] 4 mg SL Q6HR PRN #30 tab.rapdis PRN Reason: Nausea Aspirin Enteric Coated [Aspirin EC] 81 mg PO DAILY #30 tablet. Levofloxacin 750 MG/150 ML [Levaquin Premix 750mg/150 mL] 750 mg IVPB DAILY #14 bag Metoprolol XL (24 HR) Succ [Toprol Xl] 25 mg PO DAILY #30 tab.er.24h MetroNIDAZOLE 500 MG/100 ML [Flagyl Premix 500 MG/100 ML] 500 mg IV TID #42 bag Nut.tx.impaired Digest Fxn [Ensure Clear] 1 bottle PO TID #42 can Polyhexam Biguan/Gauze Bandage [Curity Amd 4"X4" Non-Woven] 1 each TP DAILY #1 unit Polyhexam Biguan/Gauze Bandage [Curity Amd Packing Strips] 1 each TP DAILY #1 unit Swab [Cot[place] Swabs] 1 each MC DAILY #30 each
[2017-11-11 12:36] LABS: Basophils # 0.1 K/mcL (0.0-0.2); Basophils % 0.5 %; Eosinophils # 1.2 K/mcL (0.0-0.6); Eosinophils % 5.1 %; Hematocrit 41.1 % (37.5-50.1); Hemoglobin 13.9 g/dL (12.9-16.9); Immature Granulocytes % 3.3 % (0-4); Lymphocytes # 1.5 K/mcL (0.6-4.6); Lymphocytes % 6.4 %; Mean Corpuscular HGB Conc 33.8 g/dL (31.6-35.5); Mean Corpuscular Hemoglobin 30.4 pg (28.0-33.3); Mean Corpuscular Volume 89.9 fL (83.0-100.0); Mean Platelet Volume 8.9 fL (9.4-12.4); Monocytes % 4.4 %; Neutrophils # 18.5 K/mcL (1.6-8.9); Nucleated Red Blood Cells 0.1 /100 WBC (0); Platelet Count 482 K/mcL (140-400); Red Blood Count 4.57 M/mcL (4.19-5.50); Red Cell Distribution Width 12.5 % (11.5-14.5); Segmented Neutrophils % 80.3 %
[2017-11-11 13:39] LABS: BUN/Creatinine Ratio 16 (6-26); Blood Urea Nitrogen 9 mg/dL (6-20); Calcium 7.7 mg/dL (8.6-10.3); Carbon Dioxide 22 mEq/L (23-29); Chloride 101 mEq/L (98-107); Glucose 102 mg/dL (70-105); Osmolality,Calculated 267 (280-300); Potassium 4.5 mEq/L (3.5-5.1); Sodium 129 mEq/L (136-145); eGFR For African Americans > 60 (> 60); eGFR For Non-African Americans > 60 (> 60)
== END 2017-11-11 15:57 | disposition home health service (06) | DRG 356 ==
LOC: EMEROO 09:14 → 3ANU 14:55 → 2NENU 10-27 17:38
PROVIDERS: ADMIT Surgery; ATTEND Surgery
PROC: IRDRAIN (2017-10-27 14:00)